=== PATIENT | male | born 1960 | race Caucasian/White ===

== ENCOUNTER 2016-02-29 01:01 | Inpatient (IN) | payer MEDICAID ==
[2016-02-29] VITALS (9 sets, daily range): BP systolic 171–195; BP diastolic 68–118; PULSE 101–160; RESP 18–22; TEMP 97.9; Ht 172.7 cm; Wt 65.0 kg
[~2016-02-29] VITALS: Ht 172.7 cm; Wt 65.0 kg
[2016-02-29] MEDS ORDERED: LORAZEPAM 2 MG INJ ONE (01:53)
[2016-02-29] MEDS ORDERED: LORAZEPAM 2 MG INJ IM ONE (02:00)
[2016-02-29] MEDS ORDERED: IBUPROFEN 800 MG TAB PO ONE (02:00)
[2016-02-29] MEDS ORDERED: OLANZAPINE (ODT) 5 MG TAB ODT ONE (04:00)
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
[2016-02-29] MEDS ORDERED: SOD CHLORIDE 0.9% 1,000 ML IV ONE (10:00)
--- NOTE | 2016-02-29 10:25 | RADRPT ---
PROCEDURE: XR Chest. CLINICAL INDICATION: Shortness of breath. TECHNIQUE: Single frontal view. COMPARISON: None. FINDINGS: The lungs are clear. The heart size is normal. There is no pleural effusion or pneumothorax. There is partial absence of the distal left clavicle. IMPRESSION: 1. Partial absence of the distal left clavicle. 2. Otherwise normal chest radiograph. RPTAT: QQ .Giovanni Tamayo MD, MD Date Time Electronically viewed and signed by .Giovanni Tamayo MD, MD on 02/29/2016 10:25 .R/
[2016-02-29] MEDS ORDERED: ENALAPRILAT 1.25 MG INJ IV ONE ×2 (10:30→12:00)
[2016-02-29] MEDS ORDERED: LORAZEPAM 2 MG INJ IV ONE (10:30)
[2016-02-29] MEDS: MAGNESIUM SULFATE 2 GM, MULTIVITAMINS 10 ML, THIAMINE 100 MG, FOLIC ACID 1 MG in SOD CH... IV STA ×2 (10:33→10:36)
[2016-02-29 10:39] LABS: ALBUMIN 3.7 g/dl (3.3-4.9); HEMATOCRIT 46.5 % (42.0-52.0); HEMOGLOBIN 16.1 g/dl (14.0-18.0); MEAN CORPUSCULAR HEMOGLOBIN 31.5 pg (29.0-33.0); MEAN CORPUSCULAR HGB CONC 34.7 g/dl (32.0-37.0); PLATELET COUNT 158 10^3/UL (140-440); RED BLOOD COUNT 5.11 10^6/ul (4.70-6.10); RED CELL DISTRIBUTION WIDTH 13.9 % (11.5-14.5); UNCORRECTED WBC 6.8 10^3/ul (4.8-10.8); WHITE BLOOD COUNT 6.8 10^3/ul (4.8-10.8)
[2016-02-29 10:40] LABS: POTASSIUM 3.6 mmol/L (3.5-5.1)
[2016-02-29 10:42] LABS: ALBUMIN/GLOBULIN RATIO 0.74; BILIRUBIN,INDIRECT 0.9 mg/dl (0-1.1); BILIRUBIN,TOTAL 0.9 mg/dl (0.2-1.3); CREATININE 0.71 mg/dl (0.61-1.24); TOTAL PROTEIN 8.7 g/dl (6.1-8.1)
[2016-02-29 10:43] LABS: CALCIUM 9.1 mg/dl (8.4-10.2); INR 0.99; PROTIME 13.1 Sec (12.2-14.2)
[2016-02-29 10:55] LABS: TROPONIN-I 0.015 ng/ml (0.00-0.12)
[2016-02-29 10:56] LABS: CONDITION 1; LH ANALYZER COMMENTS 1; SUSPECT 1
[2016-02-29 11:28] LABS: LYMPHOCYTES # 0.8 10^3/ul (0.8-2.9); MONOCYTE # 0.3 10^3/ul (0.3-0.9); NEUTROPHIL # 5.2 10^3/ul (1.6-7.5)
--- NOTE | 2016-02-29 11:59 | RADRPT ---
PROCEDURE: CT Brain without contrast. CLINICAL INDICATION: Weakness. Intracranial hemorrhage. TECHNIQUE: A CT of the brain was performed utilizing axial imaging from the skull base through the vertex without IV contrast. Multiplanar reformatted images were made. Images were reviewed on a [employer] workstation. The CTDIvol is 44 mGy and the DLP is 720 mGycm. COMPARISON: None FINDINGS: There is no discrete extra-axial fluid collection or mass. The ventricles are of normal size, conto ur and configuration. Scattered focal low density are seen in the periventricular white matter of b oth cerebral hemispheres. There is no associated mass effect. No intracranial hemorrhage is presen t. There is no skull fracture. There is normal aeration of the visualized paranasal sinuses. IMPRESSION: White matter disease compatible with chronic small vessel ischemia. No intracranial hemorrhage or m ass. .Srinivas Arevalo MD, Date Time Electronically viewed and signed by .Srinivas Arevalo MD, on 02/29/2016 11:58 .A/
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
[2016-02-29] MEDS ORDERED: NACL 0.9% 3 ML SYG IV SCH (13:00)
[2016-02-29] MEDS ORDERED: BISACODYL 10 MG SUPP PR PRN (13:00)
[2016-02-29] MEDS ORDERED: morphine 2 MG INJ IV PRN (13:00)
[2016-02-29] MEDS ORDERED: MAGNESIUM HYDROXIDE 30ML CUP PO PRN (13:00)
[2016-02-29] MEDS ORDERED: ONDANSETRON 4 MG INJ IV PRN (13:00)
[2016-02-29] MEDS ORDERED: LORAZEPAM 2 MG INJ IV PRN (13:00)
[2016-02-29] MEDS ORDERED: DOCUSATE SODIUM 100 MG CAP PO PRN (13:00)
[2016-02-29] MEDS ORDERED: HYDROCODONE/APAP (5/325) TAB PO PRN ×2 (13:00)
[2016-02-29] MEDS ORDERED: ACETAMINOPHEN 650 MG SUPP PR PRN (13:00)
[2016-02-29] MEDS ORDERED: ACETAMINOPHEN 325 MG TAB PO PRN (13:00)
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
[2016-02-29] MEDS: CHLORDIAZEPOXIDE 25 MG CAP PO SCH ×2 (14:00→21:00)
[2016-02-29] MEDS ORDERED: HALOPERIDOL 5 MG INJ IV PRN (14:00)
[2016-02-29] MEDS: hydrALAzine 20 MG INJ IV PRN ×2 (14:33→20:01)
[2016-02-29 14:55] LABS: BARBITURATES Negative (NEGATIVE); BENZODIAZEPINES Negative (NEGATIVE); CANNABINOIDS Negative (NEGATIVE); COCAINE Negative (NEGATIVE); OPIATES Negative (NEGATIVE)
[2016-02-29 15:15] LABS: HAAIG REFLEX REFLEX FILED
[2016-02-29 16:30] LABS: HEPATITIS B CORE ANTIBODY NEGATIVE (NEGATIVE)
[2016-02-29] MEDS: DIPHENHYDRAMINE 50 MG INJ IV PRN ×2 (17:32→23:26)
[2016-02-29] MEDS: LORAZEPAM 2 MG INJ IV PRN ×3 (17:33→23:26)
[2016-03-01] VITALS (16 sets, daily range): BP systolic 137–199; BP diastolic 84–114; PULSE 117–139; RESP 18–22
[2016-03-01] MEDS: PANTOPRAZOLE 40 MG INJ IV SCH (06:13)
[2016-03-01] MEDS: DIPHENHYDRAMINE 50 MG INJ IV PRN (06:57)
[2016-03-01] MEDS: hydrALAzine 20 MG INJ IV PRN (06:57)
[2016-03-01 08:00] LABS: ALBUMIN 3.5 g/dl (3.3-4.9)
[2016-03-01 08:01] LABS: POTASSIUM 3.3 mmol/L (3.5-5.1)
[2016-03-01 08:03] LABS: ALBUMIN/GLOBULIN RATIO 0.76; BILIRUBIN,DIRECT 0.6 mg/dl (0.00-0.20); BILIRUBIN,INDIRECT 0.8 mg/dl (0-1.1); BILIRUBIN,TOTAL 1.4 mg/dl (0.2-1.3); CREATININE 0.82 mg/dl (0.61-1.24); TOTAL PROTEIN 8.1 g/dl (6.1-8.1)
[2016-03-01 08:04] LABS: CALCIUM 9.1 mg/dl (8.4-10.2); MAGNESIUM 2.7 mg/dl (1.7-2.5); PHOSPHORUS 3.6 mg/dl (2.5-4.9)
[2016-03-01 08:05] LABS: CHOL/HDL RATIO 3.6 RATIO
[2016-03-01 08:18] LABS: T3 UPTAKE 28.8 % (23.5-40.5)
[2016-03-01 08:26] LABS: BASOPHILS % 0.2 % (0.0-2.0); HEMOGLOBIN 15.9 g/dl (14.0-18.0); LYMPHOCYTES # 0.8 10^3/ul (0.8-2.9); LYMPHOCYTES % 9.4 % (15.0-51.0); MEAN CORPUSCULAR HEMOGLOBIN 32.2 pg (29.0-33.0); MEAN CORPUSCULAR HGB CONC 35.3 g/dl (32.0-37.0); MEAN CORPUSCULAR VOLUME 91.2 fl (82.0-101.0); MEAN PLATELET VOLUME 8.6 fl (7.4-10.4); MONOCYTE # 0.6 10^3/ul (0.3-0.9); MONOCYTES % 7.4 % (0.0-11.0); NEUTROPHIL # 6.7 10^3/ul (1.6-7.5); PLATELET COUNT 153 10^3/UL (140-440); RED BLOOD COUNT 4.94 10^6/ul (4.70-6.10); RED CELL DISTRIBUTION WIDTH 13.5 % (11.5-14.5); UNCORRECTED WBC 8.1 10^3/ul (4.8-10.8); WHITE BLOOD COUNT 8.1 10^3/ul (4.8-10.8)
[2016-03-01 08:54] LABS: THYROID STIMULATING HORMONE 1.29 MIU/L (0.465-4.680)
[2016-03-01 08:59] LABS: CONDITION 1; LH ANALYZER COMMENTS 1; SUSPECT 1
[2016-03-01] MEDS: CHLORDIAZEPOXIDE 25 MG CAP PO SCH ×3 (09:00→21:00)
[2016-03-01] MEDS: MULTIVITAMINS 10 ML, THIAMINE 100 MG, FOLIC ACID 1 MG in SOD CHLORIDE 0.9% 1,000 ML IVPB SCH (09:00)
[2016-03-01] MEDS ORDERED: METOPROLOL 5 MG INJ IV PRN (09:30)
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
[2016-03-01] MEDS: LORAZEPAM 2 MG INJ IV SCH ×4 (09:50→21:32)
[2016-03-01] MEDS ORDERED: POTASSIUM CHLORIDE 250 ML IVPB ONE (10:00)
[2016-03-02] VITALS (19 sets, daily range): BP systolic 153–182; BP diastolic 77–95; PULSE 116–147; RESP 18–24
[2016-03-02] MEDS: PANTOPRAZOLE 40 MG INJ IV SCH (06:11)
[2016-03-02] MEDS: CHLORDIAZEPOXIDE 25 MG CAP PO SCH ×3 (08:16→21:00)
[2016-03-02] MEDS: MULTIVITAMINS 10 ML, THIAMINE 100 MG, FOLIC ACID 1 MG in SOD CHLORIDE 0.9% 1,000 ML IVPB SCH (08:18)
[2016-03-02] MEDS: LORAZEPAM 2 MG INJ IV SCH ×3 (08:18→21:22)
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
[2016-03-02] MEDS: D5W-0.45 NACL + KCL 20 MEQ 1,000 ML IV SCH (13:07)
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
[2016-03-02 14:44] LABS: HEMATOCRIT 46.7 % (42.0-52.0); HEMOGLOBIN 15.8 g/dl (14.0-18.0); MEAN CORPUSCULAR HEMOGLOBIN 31.3 pg (29.0-33.0); MEAN CORPUSCULAR HGB CONC 33.9 g/dl (32.0-37.0); MEAN CORPUSCULAR VOLUME 92.2 fl (82.0-101.0); MEAN PLATELET VOLUME 8.4 fl (7.4-10.4); PLATELET COUNT 147 10^3/UL (140-440); RED BLOOD COUNT 5.07 10^6/ul (4.70-6.10); RED CELL DISTRIBUTION WIDTH 13.9 % (11.5-14.5); UNCORRECTED WBC 12.9 10^3/ul (4.8-10.8); WHITE BLOOD COUNT 12.9 10^3/ul (4.8-10.8)
[2016-03-02 14:55] LABS: CONDITION 1; LH ANALYZER COMMENTS 1; SUSPECT 1
[2016-03-02] MEDS: hydrALAzine 20 MG INJ IV PRN ×2 (14:58→18:47)
[2016-03-02 15:00] LABS: POTASSIUM 3.8 mmol/L (3.5-5.1)
[2016-03-02 15:03] LABS: CALCIUM 9.8 mg/dl (8.4-10.2); CREATININE 1.38 mg/dl (0.61-1.24)
[2016-03-02 15:49] LABS: LYMPHOCYTES # 1.4 10^3/ul (0.8-2.9); MONOCYTE # 1.3 10^3/ul (0.3-0.9); NEUTROPHIL # 9.4 10^3/ul (1.6-7.5)
--- NOTE | 2016-03-02 20:59 | CONS ---
Date/Time of Note Date/Time of Note DATE: 03/02/16 TIME: 20:57 Copies To: Additional comments: full consult dictated [id number]. Thank you. JERZY EDEN MD Mar 02, 2016 20:59
[2016-03-02] MEDS: NEOMYC/POLYMYX/BACIT 30 GM OINT TOP SCH (21:22)
[2016-03-03] VITALS (16 sets, daily range): BP systolic 138–166; BP diastolic 63–91; PULSE 113–134; RESP 20–36
[2016-03-03] MEDS: D5W-0.45 NACL + KCL 20 MEQ 1,000 ML IV SCH (00:20)
[2016-03-03] MEDS: LORAZEPAM 2 MG INJ IV SCH ×6 (01:00→21:00)
[2016-03-03] MEDS: hydrALAzine 20 MG INJ IV PRN (01:31)
[2016-03-03] MEDS: PANTOPRAZOLE 40 MG INJ IV SCH (05:35)
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
[2016-03-03] MEDS: NEOMYC/POLYMYX/BACIT 30 GM OINT TOP SCH ×2 (08:05→21:11)
[2016-03-03] MEDS: CHLORDIAZEPOXIDE 25 MG CAP PO SCH ×3 (08:06→21:00)
[2016-03-03] MEDS: MULTIVITAMINS 10 ML, THIAMINE 100 MG, FOLIC ACID 1 MG in SOD CHLORIDE 0.9% 1,000 ML IVPB SCH (08:06)
[2016-03-03 10:40] LABS: BASOPHILS % 0.1 % (0.0-2.0); EOSINOPHILS % 0.1 % (0.0-7.0); HEMATOCRIT 44.7 % (42.0-52.0); HEMOGLOBIN 15.3 g/dl (14.0-18.0); LYMPHOCYTES % 10.4 % (15.0-51.0); MEAN CORPUSCULAR HEMOGLOBIN 31.9 pg (29.0-33.0); MEAN CORPUSCULAR HGB CONC 34.2 g/dl (32.0-37.0); MEAN CORPUSCULAR VOLUME 93.2 fl (82.0-101.0); MEAN PLATELET VOLUME 9.5 fl (7.4-10.4); MONOCYTE # 0.3 10^3/ul (0.3-0.9); MONOCYTES % 3.3 % (0.0-11.0); NEUTROPHIL # 8.1 10^3/ul (1.6-7.5); NEUTROPHILS % 86.1 % (39.0-77.0); PLATELET COUNT 119 10^3/UL (140-440); RED CELL DISTRIBUTION WIDTH 14.1 % (11.5-14.5); UNCORRECTED WBC 9.4 10^3/ul (4.8-10.8); WHITE BLOOD COUNT 9.4 10^3/ul (4.8-10.8)
[2016-03-03 10:45] LABS: POTASSIUM 4.5 mmol/L (3.5-5.1)
[2016-03-03 10:48] LABS: CREATININE 0.94 mg/dl (0.61-1.24)
[2016-03-03 10:49] LABS: CALCIUM 9.6 mg/dl (8.4-10.2)
[2016-03-03 11:05] LABS: CONDITION 1; LH ANALYZER COMMENTS 1; SUSPECT 1
--- NOTE | 2016-03-03 12:57 | RADRPT ---
PROCEDURE: CT Brain without contrast. CLINICAL INDICATION: Left-sided weakness, encephalopathy, and altered mental status. TECHNIQUE: A CT of the brain without contrast was performed utilizing axial sections from the skul l base through the vertex. The patient was scanned without intravenous contrast enhancement. [place] l and coronal reformatted images were obtained using the data from the axial images. Total exam DLP is 630.20 mGy-cm. CTDIvol is 44.99 mGy. One or more of the following dose reduction techniques we re used: Automated exposure control, adjustment of the mA and/or kV according to patient size, use o f iterative reconstruction technique. COMPARISON: 02/29/2016 FINDINGS: There is normal bradley-white matter differentiation. There are small regions of decreased attenuation in the bilateral periventricular white matter, unch anged. The ventricles and cisterns are normal. There is no midline shift. There is no extra-axial fluid c ollection. There is no intracranial hemorrhage or space-occupying lesion. There is no skull fracture or lytic lesion. IMPRESSION: 1. Small regions of decreased attenuation in the bilateral periventricular white matter. This may be due to microangiopathic ischemic change or demyelination. Correlation with MRI is advised. 2. No intracranial hemorrhage or mass. RPTAT: QQ .Giovanni Tamayo MD, MD Date Time Electronically viewed and signed by .Giovanni Tamayo MD, on 03/03/2016 12:57 .R/
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
[2016-03-03] MEDS: DEXTROSE 5% 1,000 ML IV SCH ×2 (14:15→21:19)
--- NOTE | 2016-03-03 16:37 | PN ---
DATE: 03/03/2016 INFECTIOUS DISEASE PROGRESS NOTE SUBJECTIVE: No acute events overnight. The patient is lethargic, looks comfortable, afebrile. WBC 9.4, neutrophils 86.1, BUN 35, creatinine 0.94. DIAGNOSTICS: Chest x-ray on admission revealed partial absence of the distal left clavicle. ANTIMICROBIALS: Patient is off antibiotics. PHYSICAL EXAMINATION: GENERAL: This is a chronically ill-appearing, 55-year-old man who is obtunded, in no distress. HEENT: Head atraumatic, normocephalic. Sclerae anicteric. Buccal mucosa dry. The patient has mul tiple facial excoriations. NECK: Supple, trachea midline. CHEST: Rise symmetrical. Breath sounds diminished to bases. HEART: S1, S2. ABDOMEN: Soft, bowel tones present. EXTREMITIES: No cyanosis. ASSESSMENT: 1. Acute encephalopathy, neurology follows. 2. Human immunodeficiency virus, pending CD4 count. 3. Hepatitis C virus. 4. History of ethanol. 5. Electrolyte imbalance. 6. Transaminitis with elevated total bilirubin. PLAN: The patient remains clinically unchanged. No fevers. Again, CD4 count is pending. He is noah ng seen by neurology. We are going to order blood, urine cultures. We are going to await for CD4 c ount and patient's viral load. Check his liver ultrasound. Await for MRI as per neurology recommenda tions. Dictated By: CLAIR MUNGUIA [employer]RECTIONAL THERAPY TEACHER for YAZMIN MERCER MD NI/NTS Conf#: [id number] DID#: [id number]
--- NOTE | 2016-03-03 17:13 | RADRPT ---
PROCEDURE: XR Chest. CLINICAL INDICATION: Shortness of breath. TECHNIQUE: Single frontal view. COMPARISON: 02/29/2016. FINDINGS: There is air space disease in the right mid lung zone consistent with atelectasis or pneumonia. The lungs are otherwise clear. The heart size is normal. There is no pleural effusion. There is no pneumothorax. IMPRESSION: 1. Air space disease in the right mid lung zone consistent with atelectasis or pneumonia. Fluid in the fissure at this site cannot be excluded. 2. Otherwise unremarkable chest radiograph. RPTAT: QQ .Giovanni Tamayo MD, MD Date Time Electronically viewed and signed by .Giovanni Tamayo MD, MD on 03/03/2016 17:13 .R/
[2016-03-03] MEDS ORDERED: DEXTROSE 5% WATER 500 ML BAG IV ONE (20:30)
[2016-03-03 20:47] LABS: AADO2 Arterial 92.6 mmHg (7.0-24.0); Allen Test ACCEPTAB; Arterial Base Excess -1.8 mmol/L (-3.0-3); Arterial COHb 0.3 % (0.0-3.0); Arterial Fraction of Oxyhgb 94.7 % (93.0-99.0); Arterial HCO3 21.9 mmol/L (22.0-26.0); Arterial MetHb 0.3 % (0.0-1.5); Arterial Total Hemglobin 15.1 g/dl (12.0-18.0); MODE NASAL CANNULA
[2016-03-04] VITALS (50 sets, daily range): BP systolic 58–307; BP diastolic 42–181; PULSE 0–167; RESP 14–21
[2016-03-04] MEDS: LORAZEPAM 2 MG INJ IV SCH ×6 (01:00→21:00)
[2016-03-04] MEDS: PANTOPRAZOLE 40 MG INJ IV SCH (06:42)
[2016-03-04] MEDS: CHLORDIAZEPOXIDE 25 MG CAP PO SCH ×3 (09:00→21:00)
[2016-03-04] MEDS: DEXTROSE 5% 1,000 ML IV SCH ×2 (09:15→17:24)
[2016-03-04] MEDS: NEOMYC/POLYMYX/BACIT 30 GM OINT TOP SCH ×2 (09:15→21:00)
[2016-03-04 10:07] LABS: HEMATOCRIT 40.3 % (42.0-52.0); HEMOGLOBIN 13.7 g/dl (14.0-18.0); MEAN CORPUSCULAR HGB CONC 34.1 g/dl (32.0-37.0); MEAN CORPUSCULAR VOLUME 93.7 fl (82.0-101.0); PLATELET COUNT 97 10^3/UL (140-440); RED CELL DISTRIBUTION WIDTH 14.4 % (11.5-14.5); UNCORRECTED WBC 7.9 10^3/ul (4.8-10.8); WHITE BLOOD COUNT 7.9 10^3/ul (4.8-10.8)
[2016-03-04 10:10] LABS: CREATININE 1.11 mg/dl (0.61-1.24)
[2016-03-04 10:11] LABS: CONDITION 1; LH ANALYZER COMMENTS 1; SUSPECT 1
[2016-03-04 10:15] LABS: CALCIUM 9.5 mg/dl (8.4-10.2)
[2016-03-04 10:48] LABS: POTASSIUM 4.2 mmol/L (3.5-5.1)
[2016-03-04 10:56] LABS: LYMPHOCYTES # 0.9 10^3/ul (0.8-2.9); NEUTROPHIL # 4.7 10^3/ul (1.6-7.5)
[2016-03-04] MEDS: LEVOFLOXACIN 500MG/D5W (PMX) 100 ML IVPB SCH (13:04)
[2016-03-04] MEDS: PIPER-TAZO 3.375 GM IV (PMX) 100 ML IVPB SCH ×2 (14:00→22:21)
--- NOTE | 2016-03-04 14:38 | CONS ---
Date/Time of Note Date/Time of Note DATE: 03/04/16 TIME: 14:34 Assessment/Plan Assessment/Plan Chief Complaint/Hosp Course SUBJECTIVE: No acute events overnight. The patient is obtunded, afebrile. ANTIMICROBIALS: Levaquin, Zosyn PHYSICAL EXAMINATION: GENERAL: This is a chronically ill-appearing, 55-year-old man who is obtunded, in no distress. HEENT: Head atraumatic, normocephalic. Sclerae anicteric. Buccal mucosa dry. The patient has multiple facial excoriations. NECK: Supple, trachea midline. CHEST: Rise symmetrical. Breath sounds diminished to bases. HEART: S1, S2. ABDOMEN: Soft, bowel tones present. EXTREMITIES: No cyanosis. ASSESSMENT: 1. Acute encephalopathy==? toxic metabolic ?infection==> neuro on case, pending MRI. 2. Human immunodeficiency virus, pending CD4 count. 3. Hepatitis C virus. 4. Possible PNA ?aspiration 5. History of ethanol abuse. 6. Electrolyte imbalance. 7. Transaminitis with elevated total bilirubin. 8. Incomplete data PLAN: The patient remains unchanged. Started on abx for concern of PNA, will add Vanco, consider LP, await for final cx's and CD4 count, aspiration precautions DW staff Problems: Consultation Date/Type/Reason Admit Date/Time Feb 29, 2016 at 12:20 Initial Consult Date Type of Consultation: id Exam/Review of Systems Vital Signs Vitals Vital Signs Date Time Temp Pulse Resp B/P Pulse Ox O2 Delivery O2 Flow Rate FiO2 03/04/16 12:07 136 03/04/16 12:00 98.9 21 121/71 99 03/04/16 08:43 Nasal Cannula 2.0 Intake and Output 03/03/16 03/03/16 03/04/16 15:00 23:00 07:00 Intake Total 0 ml 1200 ml Output Total 700 ml 700 ml Balance -700 ml 500 ml Results Result Diagram: 03/04/16 0910 03/04/16 0910 Results 24 hrs Laboratory Tests Test 03/03/16 20:26 03/04/16 09:10 Arterial Blood HCO3 21.9 L Arterial Blood Base Excess -1.8 Arterial Blood Oxygen Saturation 95.3 Chavo Test ACCEPTAB Arterial Blood Gas Puncture Site Left Radial Arterial Blood Carboxyhemoglobin 0.3 Arterial Blood Date Drawn 03/03/2016 8:40:39 PM Arterial Blood Methemoglobin 0.3 Arterial Blood pCO2 (Temp correct) 34.5 L Arterial Blood pH (Temp corrected) 7.420 Arterial Blood pO2 (Temp corrected) 80.8 Blood Gas A-a O2 Differential 92.6 H Blood Gas Modality NASAL CANNULA Blood Gas Notified Time 03/03/2016 8:47:08 PM Blood Gas Notified Whom MA Blood Gas Specimen Source Blood arterial Blood Gas Temperature 37.0 FiO2 30.0 Oxyhemoglobin Percent 94.7 Total Hemoglobin 15.1 Anion Gap 13 Band Neutrophils % 15.0 H Basophils # Basophils % Blood Morphology Comment Blood Urea Nitrogen 32 H Calcium Level 9.5 Carbon Dioxide Level 27 Chloride Level 125 H Creatinine 1.11 Differential Comment MANUAL DIFF Eosinophils # Eosinophils % Glucose Level 120 Hematocrit 40.3 L Hemoglobin 13.7 L Lymphocytes # 0.9 Lymphocytes % 12.0 L Mean Corpuscular Hemoglobin 32.0 Mean Corpuscular Hemoglobin Concent 34.1 Mean Corpuscular Volume 93.7 Mean Platelet Volume 9.0 Monocytes # 1.0 H Monocytes % 13.0 H Neutrophils # 4.7 Neutrophils % 60.0 Nucleated Red Blood Cells # Nucleated Red Blood Cells % Platelet Count 97 L Potassium Level 4.2 Red Blood Count 4.30 L Red Cell Distribution Width 14.4 Sodium Level 161 *H White Blood Count 7.9 Medications Medications Current Medications Ondansetron HCl (Zofran Inj) 4 mg Q6H PRN IV NAUSEA AND/OR VOMITING; Start at 13:00 Acetaminophen (Tylenol Tab) 650 mg Q6H PRN PO PAIN LEVEL 1-3 OR FEVER; Start at 13:00 Acetaminophen (Tylenol Supp) 650 mg Q6H PRN [place] PAIN LEVEL 1-3 OR FEVER; Start 02/29/16 at 13:00 Acetaminophen/ Hydrocodone Bitart ([place] (5/325)) 1 tab Q6H PRN PO MODERATE PAIN LEVEL 4-6; Start 02/29/16 at 13:00 Acetaminophen/ Hydrocodone Bitart ([place] (5/325)) 2 tab Q6H PRN PO SEVERE PAIN LEVEL 7-10; Start 02/29/16 at 13:00 Morphine Sulfate (morphine) 2 mg Q4H PRN IV SEVERE PAIN LEVEL 7-10 Last administered on 03/01/16t 06:13; Admin Dose 2 MG; Start 02/29/16 at 13:00 Docusate Sodium (Colace) 100 mg Q12H PRN PO CONSTIPATION; Start 02/29/16 at 13: 00 Magnesium Hydroxide (Milk Of Mag) 30 ml DAILY PRN PO CONSTIPATION; Start at 13:00 Bisacodyl (Dulcolax Supp) 10 mg DAILY PRN [place] CONSTIPATION; Start 02/29/16 at 13 :00 Pantoprazole (Protonix Iv) 40 mg DAILY@06 IV Last administered on 03/04/16 06: 42; Admin Dose 40 MG; Start 03/01/16 at 06:00 Chlordiazepoxide (Librium) 25 mg TID PO ; Start 02/29/16 at 14:00 Hydralazine HCl (Apresoline) 10 mg Q4H PRN IV sbp>160 Last administered on 03/03 01:31; Admin Dose 10 MG; Start 02/29/16 at 14:00 Lorazepam (Ativan) 1 mg Q1HWA PRN IV CONTROL WITHDRAWAL SYMPTOMS Last administered on 02/29/16 23:26; Admin Dose 1 MG; Start 02/29/16 at 18:00 Diphenhydramine HCl (Benadryl) 25 mg Q6H PRN IV ALLERGIC REACTION Last administered on 03/01/16 06:57; Admin Dose 25 MG; Start 02/29/16 at 17:00 Metoprolol Tartrate (Lopressor) 5 mg Q6H PRN IV SBP>160 Last administered on 16:41; Admin Dose 5 MG; Start 03/01/16 at 09:30 Neomycin/ Polymyxin/ Bacitracin (Neosporin Topical Oint) 1 applic BID TOP Last administered on 03/04/16 09:15; Admin Dose 1 APPLIC; Start 03/02/16 at 21:00 Lorazepam 1 mg 1 mg Q4H IV Last administered on 03/03/16 16:03; Admin Dose 1 MG; Start 03/02/16 at 21:00 Dextrose 1,000 ml @ 100 mls/hr Q10H IV Last administered on 03/04/16 09:15; Admin Dose 100 MLS/HR; Start 03/03/16 at 13:00 Piperacillin Sod/ Tazobactam Sod 100 ml @ 200 mls/hr Q8 IVPB ; Start 03/04/16 at 14:00 Levofloxacin/ Dextrose (Levaquin 500mg/ D5W 100 ml (Pmx)) 100 ml @ 100 mls/hr Q24H IVPB Last administered on 03/04/16t 13:04; Admin Dose 100 MLS/HR; Start at 12:00 CLAIR MUNGUIA NP Mar 04, 2016 14:38
[2016-03-04] MEDS ORDERED: VANCOMYCIN IV PER PHARMACY XX SCH (15:00)
[2016-03-04] MEDS ORDERED: VANCOMYCIN 1 GM in NS 250 ML IVPB SCH (15:00)
[2016-03-04] MEDS ORDERED: NORepinephrine 8MG/250 ML (PMX 250 ML ONE (15:08)
[2016-03-04] MEDS ORDERED: PHENYLephrine 20MG IN 250 ML 0 ML ONE (15:25)
--- NOTE | 2016-03-04 15:40 | SP ---
DATE OF PROCEDURE: 03/03/2016 INDICATION: A 55-year-old gentleman with encephalopathy, history of alcohol abuse. DESCRIPTION OF PROCEDURE: Routine EEG was recorded digitally. [id number]-[id number] and iodro-kd-rxh liz ages were recorded and reviewed. All impedances were measured and recorded. Cap electrodes were pl aced in accordance with International 10-20 system of electrode placement. FINDINGS: Symmetrically distributed background activity of low amplitude ranging in frequency betwe en 9 to 11 cycles per second, at times intermixing with even smaller amplitude and higher frequency beta range activity was seen essentially throughout the recording. This activity also intermixes in termittently with slower waves 2 to 4 cycles per second. No definite response to photic stimulation . No epileptiform transients were seen. No signs of ongoing electrographic seizures. No lateraliz ed slowing observed. IMPRESSION: Abnormal study secondary to background slowing, which could reflect presence of encepha lopathy. Please correlate clinically. Dictated By: JERZY NERI/CHRISTIAN Conf#: [id number] DID#: [id number]
--- NOTE | 2016-03-04 15:41 | RADRPT ---
PROCEDURE: US Abdomen (right upper quadrant). CLINICAL INDICATION: Elevated liver enzymes. TECHNIQUE: Multiple real-time longitudinal and transverse images of the right upper quadrant of th e abdomen were acquired utilizing a curved array transducer. Images were reviewed on a high-resoluti on PACS workstation. COMPARISON: None FINDINGS: This is a limited study due to patient becoming unstable during the scan. Limited images of the liver are grossly normal. The pancreas is partially seen and appears unremarkable. The gallbladder, right kidney, and bile ducts were not evaluated. There is no free fluid. IMPRESSION: 1. Limited study as described above. RPTAT: QQ .Giovanni Tamayo MD, MD Date Time Electronically viewed and signed by .Giovanni Tamayo MD, on 03/04/2016 15:41 .R/
--- NOTE | 2016-03-04 15:42 | CONS ---
Date/Time of Note Date/Time of Note DATE: 03/04/16 TIME: 15:34 Assessment/Plan Assessment/Plan Additional Assessment/Plan Assessment and recommendations; 1. Patient admitted with severe hypernatremia hyperchloremia and volume depletion ,was being hydrated on the medical floor as well as was being treated for alcohol withdrawal when the patient decompensated, a CODE BLUE was called in and prolonged CPR was done lasting more than 20 minutes with several rounds of epinephrine been given patient currently hypotensive on maximum doses of Levophed. Next 2. Chest x-ray was reviewed from yesterday which is essentially clear. However at this time it is difficult to rule out superimposed pneumonia. Patient currently on broad-spectrum antibiotic coverage. Next 3. HIV positive viral load status is not available. 4. At this point difficult to rule out underlying meningitis. 5. At this point difficult to rule out anoxic enthesopathy because of prolonged CPR. Continue current mechanical ventilation setting patient is a assist-control of 20 tidal volume 500 PEEP of 500% FiO2. Continue broad-spectrum antibiotic coverage. Put an NG tube and start free water via NG tube 300 mL every 6 hours for correction of hyponatremia. A lumbar puncture is pending. From an ABG. Once the ABG results are obtained I will reviewed make further recommendations regarding ventilator settings. Right femoral triple-lumen central venous catheter was put in without difficulty because of hypotension high-dose pressor support. Also an 18 g 6 inch right femoral arterial catheter was placed without difficulty. Gnosis very guarded. Consultation Date/Type/Reason Admit Date/Time Feb 29, 2016 at 12:20 Date of Consultation: Mar 04, 2016 Type of Consultation: pulmoinary/ critical care Reason for Consultation Patient admitted with altered mental status possibly some element of alcohol withdrawal was being treated on the medical floor and the patient decompensated a CODE BLUE was called in and prolonged CPR was done lasting 20 minutes patient was intubated by the ER physician offered to ICU. History was obtained from medical records. Past Medical History Past medical history; patient HIV-positive status is unknown regarding CD4 CD8 counts also outpatient treatment status is unclear at this point. Medications; reviewed. Social history; positive for alcohol abuse. Family history; currently not available. Occupational history: currently not available. Review of systems; currently not obtainable. Social History Alcohol Use: heavy Smoking Status: Current every day smoker Drug Use: other (unknown) Exam/Review of Systems Vital Signs Vitals Vital Signs Date Time Temp Pulse Resp B/P Pulse Ox O2 Delivery O2 Flow Rate FiO2 03/04/16 15:04 167 03/04/16 12:00 98.9 21 121/71 99 03/04/16 08:43 Nasal Cannula 2.0 Intake and Output 03/03/16 03/03/16 03/04/16 15:00 23:00 07:00 Intake Total 0 ml 1200 ml Output Total 700 ml 700 ml Balance -700 ml 500 ml Exam General exam; young emaciated male orally intubated currently completely unresponsive. HEENT examination: Supple neck, or intubated, pupils are dilated and nonreactive to light. Lymph adenopathy. No thyromegaly. Dentition is fair. Patient does have left periorbital contusions. Next Chest examination; clear to auscultation. S1-S2 audible no murmurs tachycardic regular rhythm. Next Abdomen examination; soft scaphoid no organomegaly bowel sounds are absent. There is no scrotal or penile edema. Next Extremity examination; no peripheral edema. Pulses 1+ bilaterally. No clubbing. TRADE SHOW MANAGER examination; patient currently unresponsive . Results Result Diagram: 03/04/16 0910 03/04/16 0910 Results 24 hrs Laboratory Tests Test 03/03/16 20:26 03/04/16 09:10 03/04/16 14:20 Arterial Blood HCO3 21.9 L Arterial Blood Base Excess -1.8 Arterial Blood Oxygen Saturation 95.3 Chavo Test ACCEPTAB Arterial Blood Gas Puncture Site Left Radial Arterial Blood Carboxyhemoglobin 0.3 Arterial Blood Date Drawn 03/03/2016 8:40:39 PM Arterial Blood Methemoglobin 0.3 Arterial Blood pCO2 (Temp correct) 34.5 L Arterial Blood pH (Temp corrected) 7.420 Arterial Blood pO2 (Temp corrected) 80.8 Blood Gas A-a O2 Differential 92.6 H Blood Gas Modality NASAL CANNULA Blood Gas Notified Time 03/03/2016 8:47:08 PM Blood Gas Notified Whom [place] Blood Gas Specimen Source Blood arterial Blood Gas Temperature 37.0 FiO2 30.0 Oxyhemoglobin Percent 94.7 Total Hemoglobin 15.1 Anion Gap 13 Band Neutrophils % 15.0 H Basophils # Basophils % Blood Morphology Comment Blood Urea Nitrogen 32 H Calcium Level 9.5 Carbon Dioxide Level 27 Chloride Level 125 H Creatinine 1.11 Differential Comment MANUAL DIFF Eosinophils # Eosinophils % Glucose Level 120 Hematocrit 40.3 L Hemoglobin 13.7 L Lymphocytes # 0.9 Lymphocytes % 12.0 L Mean Corpuscular Hemoglobin 32.0 Mean Corpuscular Hemoglobin Concent 34.1 Mean Corpuscular Volume 93.7 Mean Platelet Volume 9.0 Monocytes # 1.0 H Monocytes % 13.0 H Neutrophils # 4.7 Neutrophils % 60.0 Nucleated Red Blood Cells # Nucleated Red Blood Cells % Platelet Count 97 L Potassium Level 4.2 Red Blood Count 4.30 L Red Cell Distribution Width 14.4 Sodium Level 161 *H White Blood Count 7.9 Bedside Glucose 121 Medications Medications Current Medications Ondansetron HCl (Zofran Inj) 4 mg Q6H PRN IV NAUSEA AND/OR VOMITING; Start at 13:00 Acetaminophen (Tylenol Tab) 650 mg Q6H PRN PO PAIN LEVEL 1-3 OR FEVER; Start at 13:00 Acetaminophen (Tylenol Supp) 650 mg Q6H PRN [place] PAIN LEVEL 1-3 OR FEVER; Start 02/29/16 at 13:00 Acetaminophen/ Hydrocodone Bitart ([place] (5/325)) 1 tab Q6H PRN PO MODERATE PAIN LEVEL 4-6; Start 02/29/16 at 13:00 Acetaminophen/ Hydrocodone Bitart ([place] (5/325)) 2 tab Q6H PRN PO SEVERE PAIN LEVEL 7-10; Start 02/29/16 at 13:00 Morphine Sulfate (morphine) 2 mg Q4H PRN IV SEVERE PAIN LEVEL 7-10 Last administered on 03/01/16 06:13; Admin Dose 2 MG; Start 02/29/16 at 13:00 Docusate Sodium (Colace) 100 mg Q12H PRN PO CONSTIPATION; Start 02/29/16 at 13: 00 Magnesium Hydroxide (Milk Of Mag) 30 ml DAILY PRN PO CONSTIPATION; Start at 13:00 Bisacodyl (Dulcolax Supp) 10 mg DAILY PRN [place] CONSTIPATION; Start 02/29/16 at 13 :00 Pantoprazole (Protonix Iv) 40 mg DAILY@06 IV Last administered on 03/04/16 06: 42; Admin Dose 40 MG; Start 03/01/16 at 06:00 Chlordiazepoxide (Librium) 25 mg TID PO ; Start 02/29/16 at 14:00 Hydralazine HCl (Apresoline) 10 mg Q4H PRN IV sbp>160 Last administered on 03/03 01:31; Admin Dose 10 MG; Start 02/29/16 at 14:00 Lorazepam (Ativan) 1 mg Q1HWA PRN IV CONTROL WITHDRAWAL SYMPTOMS Last administered on 02/29/16 23:26; Admin Dose 1 MG; Start 02/29/16 at 18:00 Diphenhydramine HCl (Benadryl) 25 mg Q6H PRN IV ALLERGIC REACTION Last administered on 03/01/16 06:57; Admin Dose 25 MG; Start 02/29/16 at 17:00 Metoprolol Tartrate (Lopressor) 5 mg Q6H PRN IV SBP>160 Last administered on 16:41; Admin Dose 5 MG; Start 03/01/16 at 09:30 Neomycin/ Polymyxin/ Bacitracin (Neosporin Topical Oint) 1 applic BID TOP Last administered on 03/04/16 09:15; Admin Dose 1 APPLIC; Start 03/02/16 at 21:00 Lorazepam 1 mg 1 mg Q4H IV Last administered on 03/03/16 16:03; Admin Dose 1 MG; Start 03/02/16 at 21:00 Dextrose 1,000 ml @ 100 mls/hr Q10H IV Last administered on 03/04/16 09:15; Admin Dose 100 MLS/HR; Start 03/03/16 at 13:00 Piperacillin Sod/ Tazobactam Sod 100 ml @ 200 mls/hr Q8 IVPB ; Start 03/04/16 at 14:00 Levofloxacin/ Dextrose 100 ml @ 100 mls/hr Q24H IVPB Last administered on 03/04 13:04; Admin Dose 100 MLS/HR; Start 03/04/16 at 12:00 Vancomycin HCl (Vancocin) 250 ml @ 125 mls/hr Q12H IVPB ; Start 03/04/16 at 15: 00 KEANU CHE Mar 04, 2016 15:42
[2016-03-04] MEDS ORDERED: PHENYLephrine 20MG IN 250 ML 250 ML IV SCH ×2 (16:00→22:00)
--- NOTE | 2016-03-04 16:07 | PN ---
Date/Time of Note Date/Time of Note DATE: 03/04/16 TIME: 15:55 Assessment/Plan VTE Prophylaxis VTE Prophylaxis Intervention: SCD's Assessment/Plan Chief Complaint/Hosp Course 1. Cardiac Arrest with ROSC -Etiology unclear, Cards consult with Dr Morrissey -Intubated and transferred to the ICU 2. Encephalopathy likely secondary to alcohol withdrawal vs HIV Encephalopathy Continue on Ativan for alcohol withdrawal.. cont iv hydration positive HIV serology. neurologist following EEG-Abnormal study secondary to background slowing, which could reflect presence of encephalopathy. 3. Hypertensive urgency-now Hypotensive 4. 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 -Advise about cessation once patient more alert 5. Transaminitis. Patient with alcohol abuse as well as hepatitis 6. Hepatitis C.HCV RNA level high. cont with ID recs. 7. Hypokalemia. Will monitor and replete as needed 8. HIV (+) serology. cont abx/antiretrovirals per ID 9. Hypernatremia-improving -cont D5W DVT prophylaxis: SCDs Problems: Subjective 24 Hr Interval Summary Subjective hx not possible: pt non-verbal Exam/Review of Systems Vital Signs Vitals Vital Signs Date Time Temp Pulse Resp B/P Pulse Ox O2 Delivery O2 Flow Rate FiO2 03/04/16 15:04 167 03/04/16 12:00 98.9 21 121/71 99 03/04/16 08:43 Nasal Cannula 2.0 Intake and Output 03/03/16 03/03/16 03/04/16 15:00 23:00 07:00 Intake Total 0 ml 1200 ml Output Total 700 ml 700 ml Balance -700 ml 500 ml Exam Constitutional: non-verbal ENMT: intubated Respiratory: clear to auscultation Cardiovascular: regular rate and rhythm Gastrointestinal: soft, No distended Musculoskeletal: nl extremities to inspection Results Result Diagram: 03/04/16 0910 03/04/16 0910 Results 24 hrs Laboratory Tests Test 03/03/16 20:26 03/04/16 09:10 03/04/16 14:20 Arterial Blood HCO3 21.9 L Arterial Blood Base Excess -1.8 Arterial Blood Oxygen Saturation 95.3 Chavo Test ACCEPTAB Arterial Blood Gas Puncture Site Left Radial Arterial Blood Carboxyhemoglobin 0.3 Arterial Blood Date Drawn 03/03/2016 8:40:39 PM Arterial Blood Methemoglobin 0.3 Arterial Blood pCO2 (Temp correct) 34.5 L Arterial Blood pH (Temp corrected) 7.420 Arterial Blood pO2 (Temp corrected) 80.8 Blood Gas A-a O2 Differential 92.6 H Blood Gas Modality NASAL CANNULA Blood Gas Notified Time 03/03/2016 8:47:08 PM Blood Gas Notified Whom [place] Blood Gas Specimen Source Blood arterial Blood Gas Temperature 37.0 FiO2 30.0 Oxyhemoglobin Percent 94.7 Total Hemoglobin 15.1 Anion Gap 13 Band Neutrophils % 15.0 H Basophils # Basophils % Blood Morphology Comment Blood Urea Nitrogen 32 H Calcium Level 9.5 Carbon Dioxide Level 27 Chloride Level 125 H Creatinine 1.11 Differential Comment MANUAL DIFF Eosinophils # Eosinophils % Glucose Level 120 Hematocrit 40.3 L Hemoglobin 13.7 L Lymphocytes # 0.9 Lymphocytes % 12.0 L Mean Corpuscular Hemoglobin 32.0 Mean Corpuscular Hemoglobin Concent 34.1 Mean Corpuscular Volume 93.7 Mean Platelet Volume 9.0 Monocytes # 1.0 H Monocytes % 13.0 H Neutrophils # 4.7 Neutrophils % 60.0 Nucleated Red Blood Cells # Nucleated Red Blood Cells % Platelet Count 97 L Potassium Level 4.2 Red Blood Count 4.30 L Red Cell Distribution Width 14.4 Sodium Level 161 *H White Blood Count 7.9 Bedside Glucose 121 Medications Medications Current Medications Ondansetron HCl (Zofran Inj) 4 mg Q6H PRN IV NAUSEA AND/OR VOMITING; Start at 13:00 Acetaminophen (Tylenol Tab) 650 mg Q6H PRN PO PAIN LEVEL 1-3 OR FEVER; Start at 13:00 Acetaminophen (Tylenol Supp) 650 mg Q6H PRN [place] PAIN LEVEL 1-3 OR FEVER; Start 02/29/16 at 13:00 Acetaminophen/ Hydrocodone Bitart ([place] (5/325)) 1 tab Q6H PRN PO MODERATE PAIN LEVEL 4-6; Start 02/29/16 at 13:00 Acetaminophen/ Hydrocodone Bitart ([place] (5/325)) 2 tab Q6H PRN PO SEVERE PAIN LEVEL 7-10; Start 02/29/16 at 13:00 Morphine Sulfate (morphine) 2 mg Q4H PRN IV SEVERE PAIN LEVEL 7-10 Last administered on 03/01/16t 06:13; Admin Dose 2 MG; Start 02/29/16 at 13:00 Docusate Sodium (Colace) 100 mg Q12H PRN PO CONSTIPATION; Start 02/29/16 at 13: 00 Magnesium Hydroxide (Milk Of Mag) 30 ml DAILY PRN PO CONSTIPATION; Start at 13:00 Bisacodyl (Dulcolax Supp) 10 mg DAILY PRN [place] CONSTIPATION; Start 02/29/16 at 13 :00 Pantoprazole (Protonix Iv) 40 mg DAILY@06 IV Last administered on 03/04/16 06: 42; Admin Dose 40 MG; Start 03/01/16 at 06:00 Chlordiazepoxide (Librium) 25 mg TID PO ; Start 02/29/16 at 14:00 Hydralazine HCl (Apresoline) 10 mg Q4H PRN IV sbp>160 Last administered on 03/03 01:31; Admin Dose 10 MG; Start 02/29/16 at 14:00 Lorazepam (Ativan) 1 mg Q1HWA PRN IV CONTROL WITHDRAWAL SYMPTOMS Last administered on 02/29/16 23:26; Admin Dose 1 MG; Start 02/29/16 at 18:00 Diphenhydramine HCl (Benadryl) 25 mg Q6H PRN IV ALLERGIC REACTION Last administered on 03/01/16 06:57; Admin Dose 25 MG; Start 02/29/16 at 17:00 Metoprolol Tartrate (Lopressor) 5 mg Q6H PRN IV SBP>160 Last administered on 16:41; Admin Dose 5 MG; Start 03/01/16 at 09:30 Neomycin/ Polymyxin/ Bacitracin (Neosporin Topical Oint) 1 applic BID TOP Last administered on 03/04/16 09:15; Admin Dose 1 APPLIC; Start 03/02/16 at 21:00 Lorazepam 1 mg 1 mg Q4H IV Last administered on 03/03/16 16:03; Admin Dose 1 MG; Start 03/02/16 at 21:00 Dextrose 1,000 ml @ 100 mls/hr Q10H IV Last administered on 03/04/16 09:15; Admin Dose 100 MLS/HR; Start 03/03/16 at 13:00 Piperacillin Sod/ Tazobactam Sod 100 ml @ 200 mls/hr Q8 IVPB ; Start 03/04/16 at 14:00 Levofloxacin/ Dextrose 100 ml @ 100 mls/hr Q24H IVPB Last administered on 03/04t 13:04; Admin Dose 100 MLS/HR; Start 03/04/16 at 12:00 Vancomycin HCl 250 ml @ 125 mls/hr Q12H IVPB ; Start 03/04/16 at 15:00 Norepinephrine 250 ml @ 1.875 mls/ hr TITRATE IV ; Start 03/04/16 at 16:00; Stop 03/05/16 at 07:00 Phenylephrine HCl 250 ml @ 75 mls/hr TITRATE IV ; Start 03/04/16 at 16:00; Stop 03/05/16 at 07:00 Norepinephrine 16 mg/Dextrose 500 ml @ 0 mls/hr TITRATE IV ; Start 03/05/16 at 07:00 Phenylephrine HCl/ Dextrose (Kemal-Synephrine/ D5W) 500 ml @ 0 mls/hr TITRATE IV ; Start 03/05/16 at 07:00 RUBA NICHOLSON Mar 04, 2016 16:07
[2016-03-04 17:04] LABS: AADO2 Arterial 483.2 mmHg (7.0-24.0); Arterial Base Excess -6.7 mmol/L (-3.0-3); Arterial COHb 0.2 % (0.0-3.0); Arterial Fraction of Oxyhgb 98.1 % (93.0-99.0); Arterial HCO3 21.6 mmol/L (22.0-26.0); Arterial MetHb 0.3 % (0.0-1.5); Arterial Total Hemglobin 12.8 g/dl (12.0-18.0); MODE VENT - AC
--- NOTE | 2016-03-04 18:23 | RADRPT ---
PROCEDURE: Right Upper Quadrant Ultrasound. CLINICAL INDICATION: repeat incomplete study per Dr. Tamayo TECHNIQUE: Multiple real-time images were acquired of the patient's right upper quadrant abdomen a nd retroperitoneum utilizing a high resolution transducer. COMPARISON: Liver ultrasound from 03/04/2016 at 14:17 hours FINDINGS: The liver measures 16.2 cm, and demonstrates moderately increased echogenicity. The main portal vein is patent with proper directional flow. There is no intrahepatic biliary ductal dilatation. The ext rahepatic common bile duct measures 4 mm. There is cholelithiasis. There is no gallbladder wall thickening or pericholecystic fluid. The visualized pancreas is unremarkable. The right kidney measures 10.1 cm and demonstrates normal echotexture. There is no right renal calcu bola or hydronephrosis. The visualized abdominal aorta and IVC are grossly unremarkable. IMPRESSION: Mild hepatomegaly with moderate fatty infiltration. Cholelithiasis without evidence of acute cholecystitis. Normal CBD. RPTAT: EE Physician Karely Date Time Electronically viewed and signed by Physician Karely on 03/04/2016 18:23 /
--- NOTE | 2016-03-04 19:32 | CONS ---
Date/Time of Note Date/Time of Note DATE: 03/04/16 TIME: 19:26 Consult Date/Type/Reason Admit Date/Time Feb 29, 2016 at 12:20 Initial Consult Date 03/04/16 Type of Consultation: neurology Subjective S/p CPA [id number] today PEA. Intubated Objective Vital Signs Date Time Temp Pulse Resp B/P Pulse Ox O2 Delivery O2 Flow Rate FiO2 03/04/16 17:58 103 20 100 70 03/04/16 17:00 133/94 Mechanical Ventilator 03/04/16 16:00 97.8 03/04/16 08:43 2.0 Intake and Output 03/03/16 03/03/16 03/04/16 15:00 23:00 07:00 Intake Total 0 ml 1200 ml Output Total 700 ml 700 ml Balance -700 ml 500 ml Results/Medications Result Diagram: 03/04/16 0910 03/04/16 0910 Results 24 hrs Laboratory Tests Test 03/03/16 20:26 03/04/16 09:10 03/04/16 14:20 03/04/16 15:33 Arterial Blood HCO3 21.9 L 21.6 L Arterial Blood Base Excess -1.8 -6.7 L Arterial Blood Oxygen Saturation 95.3 98.6 H Chavo Test ACCEPTAB N/A Arterial Blood Gas Puncture Site Left Radial Right Brachial Arterial Blood Carboxyhemoglobin 0.3 0.2 Arterial Blood Date Drawn 03/03/2016 8:40:39 PM 03/04/2016 4:40:30 PM Arterial Blood Methemoglobin 0.3 0.3 Arterial Blood pCO2 (Temp correct) 34.5 L 54.9 H Arterial Blood pH (Temp corrected) 7.420 7.212 *L Arterial Blood pO2 (Temp corrected) 80.8 174.9 H Blood Gas A-a O2 Differential 92.6 H 483.2 H Blood Gas Modality NASAL CANNULA VENT - AC Blood Gas Notified Time 03/03/2016 8:47:08 PM 03/04/2016 5:04:44 PM Blood Gas Notified Whom CORBIN LEIJA Blood Gas Specimen Source Blood arterial Blood arterial Blood Gas Temperature 37.0 37.0 FiO2 30.0 100.0 Oxyhemoglobin Percent 94.7 98.1 Total Hemoglobin 15.1 12.8 Anion Gap 13 Band Neutrophils % 15.0 H Basophils # Basophils % Blood Morphology Comment Blood Urea Nitrogen 32 H Calcium Level 9.5 Carbon Dioxide Level 27 Chloride Level 125 H Creatinine 1.11 Differential Comment MANUAL DIFF Eosinophils # Eosinophils % Glucose Level 120 Hematocrit 40.3 L Hemoglobin 13.7 L Lymphocytes # 0.9 Lymphocytes % 12.0 L Mean Corpuscular Hemoglobin 32.0 Mean Corpuscular Hemoglobin Concent 34.1 Mean Corpuscular Volume 93.7 Mean Platelet Volume 9.0 Monocytes # 1.0 H Monocytes % 13.0 H Neutrophils # 4.7 Neutrophils % 60.0 Nucleated Red Blood Cells # Nucleated Red Blood Cells % Platelet Count 97 L Potassium Level 4.2 Red Blood Count 4.30 L Red Cell Distribution Width 14.4 Sodium Level 161 *H White Blood Count 7.9 Bedside Glucose 121 Blood Gas Actual Respiration Rate 14 Blood Gas Critical Value Read Back Jyoti DALTON RN Blood Gas Low PEEP Setting 5.0 Blood Gas Respiration Rate 14.0 Blood Gas Tidal Volume 500.0 Medications Current Medications Ondansetron HCl (Zofran Inj) 4 mg Q6H PRN IV NAUSEA AND/OR VOMITING; Start at 13:00 Acetaminophen (Tylenol Tab) 650 mg Q6H PRN PO PAIN LEVEL 1-3 OR FEVER; Start at 13:00 Acetaminophen (Tylenol Supp) 650 mg Q6H PRN [place] PAIN LEVEL 1-3 OR FEVER; Start 02/29/16 at 13:00 Acetaminophen/ Hydrocodone Bitart ([place] (5/325)) 1 tab Q6H PRN PO MODERATE PAIN LEVEL 4-6; Start 02/29/16 at 13:00 Acetaminophen/ Hydrocodone Bitart ([place] (5/325)) 2 tab Q6H PRN PO SEVERE PAIN LEVEL 7-10; Start 02/29/16 at 13:00 Morphine Sulfate (morphine) 2 mg Q4H PRN IV SEVERE PAIN LEVEL 7-10 Last administered on 03/01/16t 06:13; Admin Dose 2 MG; Start 02/29/16 at 13:00 Docusate Sodium (Colace) 100 mg Q12H PRN PO CONSTIPATION; Start 02/29/16 at 13: 00 Magnesium Hydroxide (Milk Of Mag) 30 ml DAILY PRN PO CONSTIPATION; Start at 13:00 Bisacodyl (Dulcolax Supp) 10 mg DAILY PRN [place] CONSTIPATION; Start 02/29/16 at 13 :00 Pantoprazole (Protonix Iv) 40 mg DAILY@06 IV Last administered on 03/04/16 06: 42; Admin Dose 40 MG; Start 03/01/16 at 06:00 Chlordiazepoxide (Librium) 25 mg TID PO ; Start 02/29/16 at 14:00 Hydralazine HCl (Apresoline) 10 mg Q4H PRN IV sbp>160 Last administered on 03/03 01:31; Admin Dose 10 MG; Start 02/29/16 at 14:00 Lorazepam (Ativan) 1 mg Q1HWA PRN IV CONTROL WITHDRAWAL SYMPTOMS Last administered on 02/29/16 23:26; Admin Dose 1 MG; Start 02/29/16 at 18:00 Diphenhydramine HCl (Benadryl) 25 mg Q6H PRN IV ALLERGIC REACTION Last administered on 03/01/16 06:57; Admin Dose 25 MG; Start 02/29/16 at 17:00 Metoprolol Tartrate (Lopressor) 5 mg Q6H PRN IV SBP>160 Last administered on 16:41; Admin Dose 5 MG; Start 03/01/16 at 09:30 Neomycin/ Polymyxin/ Bacitracin (Neosporin Topical Oint) 1 applic BID TOP Last administered on 03/04/16 09:15; Admin Dose 1 APPLIC; Start 03/02/16 at 21:00 Lorazepam 1 mg 1 mg Q4H IV Last administered on 03/03/16 16:03; Admin Dose 1 MG; Start 03/02/16 at 21:00 Piperacillin Sod/ Tazobactam Sod 100 ml @ 200 mls/hr Q8 IVPB ; Start 03/04/16 at 14:00 Levofloxacin/ Dextrose 100 ml @ 100 mls/hr Q24H IVPB Last administered on 03/04 13:04; Admin Dose 100 MLS/HR; Start 03/04/16 at 12:00 Norepinephrine 250 ml @ 1.875 mls/ hr TITRATE IV ; Start 03/04/16 at 16:00; Stop 03/05/16 at 07:00 Phenylephrine HCl 250 ml @ 75 mls/hr TITRATE IV ; Start 03/04/16 at 16:00; Stop 03/05/16 at 07:00 Norepinephrine 16 mg/Dextrose 500 ml @ 0 mls/hr TITRATE IV ; Start 03/05/16 at 07:00 Phenylephrine HCl 40 mg/Dextrose 500 ml @ 0 mls/hr TITRATE IV ; Start 03/05/16 at 07:00 Dextrose 1,000 ml @ 100 mls/hr Q10H IV Last administered on 03/04/16t 17:24; Admin Dose 100 MLS/HR; Start 03/04/16 at 17:00 Vancomycin HCl/ Dextrose (Vancocin/D5W) 250 ml @ 125 mls/hr Q12H IVPB ; Start 03/05/16 at 03:00 Assessment/Plan Chief Complaint/Hosp Course NEUROLOGIC: Unresponsive, not sedated, eyes closed. He has no definite response to visual threat bilaterally. Pupils about 3 mm on the right, 5 mm on the left fixed. Left eyelid is swollen and covering the eye. Corneal reflexes absent bilaterally. Gag is absent. Motor strength examination shows absence of spontaneous movements and response to pain, flaccid tone. IMPRESSION: S/p CPA. Severe encephalopathy, anoxic. EEG, repeat CT head. Clinical exam could be c/w brain . Consider apnea test. HIV, ETOH withdrawal. Dr. Vazquez to follow Problems: JERZY EDEN MD Mar 04, 2016 19:32
[2016-03-04] MEDS: NORepinephrine 8MG/250 ML (PMX 250 ML IV SCH ×2 (19:54→22:21)
--- NOTE | 2016-03-04 20:53 | QN ---
Documentation Comment Emergency medicine consultation note: HPI: 55-year-old man recently admitted for intoxication and alcohol withdrawal lost pulses while on the floor, initial rhythm was pulseless electrical activity , nurses found him apneic and pulseless called the CODE BLUE. Immediate chest compressions were started. It seems patient is also being treated for nonspecific sepsis with IV antibiotics as well. Past medical history: Alcohol and drug abuse Physical exam: GENERAL: Encephalopathic, unresponsive, left orbital contusion HEENT: There is a left orbital contusion and hematoma, no cervical spine deformity, no goiter NEURO: Unresponsive, pupils minimally reactive, no facial asymmetry or focal deficits CARDIAC: No heart sounds were pulses palpated LUNGS: Clear lungs with bagging ABDOMEN: Soft nondistended abdomen no rigidity SKIN: Skin is hot to touch, multiple tattoos and superficial ecchymoses, no open lacerations, target lesions, or ulcers EXTREMITIES: No clubbing cyanosis or edema, calves are bilaterally symmetrical, no Homans sign, no popliteal cord sign. Distal pulses equal and bilateral PSYCH: Unable to assess Medical decision making: A CODE BLUE was called which I responded to, high- quality chest compressions were immediately started an initial rhythm was pulseless electrical activity with a narrow complex. Endotracheal Intubation by me: Pre assessment performed. See preceding note for details. Pre-oxygenation performed with 100% oxygen RSI: Performed w/o complication or hypoxic events. Medications as ordered. Blade: Mac 4 ET Tube: 7.5 cm Depth: 22 cm at the lip Intubation confirmed by colorimetric CO2, equal breath sounds, quiet over the stomach. Chest X-ray 1V was ordered by me, results are pending I will follow-up Patient was given 2 doses of epinephrine, and due to his alcoholism history I administered magnesium 2 g IV. After magnesium treatment and continue chest compressions rhythm change to Torsades de pointes, I then administered defibrillated the patient and administered another 2 g of magnesium intravenously as well as sodium bicarbonate 50 mEq IV and calcium carbonate 1 g IV. Patient developed strong pulses with a good blood pressure. I obtained peripheral IV access using the left external jugular vein, and ordered 1 L normal saline intravenously Critical Care: Time: 35 minutes, this was time separate from other procedures. Treatments/Evaluations: Close monitoring and treatment of unstable vital signs, cardiorespiratory, and neurologic status, while maintaining tight balance of fluid, respiratory, and cardiac interventions. Diagnostic impression: #1 acute cardiopulmonary arrest with return of spontaneous circulation 2. Torsades de pointes ABIMBOLA ALICIA MD Mar 04, 2016 20:53
--- NOTE | 2016-03-04 21:34 | QN ---
Documentation Comment I was called out of the emergency department to room 113 for a CODE BLUE event. The patient was receiving high-quality CPR and being bagged by respiratory therapy. I immediately took over as the CODE BLUE leader and ran the code. Please see the code sheet for full details. The patient received epinephrine, bicarbonate, and 2 defibrillations. The final results of the CODE BLUE was return of spontaneous circulation. HPI: Please note the history and physical exam is limited as the patient is receiving CPR at this time. The patient is in full cardiac arrest. Physical exam: The patient is being bagged by respiratory therapy. There is no movement. GCS is 3. Defibrillation #1: Patient required defibrillation during the CODE BLUE Technique: Biphasic defibrillation at 200 J for ventricular fibrillation Defibrillation #2: Patient required defibrillation during the CODE BLUE Technique: Biphasic defibrillation at 200 J for ventricular fibrillation YOEL ZHAO MD Mar 04, 2016 21:34
[2016-03-04] MEDS ORDERED: DOPamine 800 MG in DEXTROSE 5% 230 ML IV SCH (22:00)
[2016-03-04] MEDS: VASOPRESSIN 60 UNIT in DEXTROSE 5% 57 ML IV SCH (22:00)
[2016-03-04 22:10] LABS: HEMATOCRIT 38.7 % (42.0-52.0); MEAN CORPUSCULAR HGB CONC 33.7 g/dl (32.0-37.0)
[2016-03-04 22:15] LABS: HEMOGLOBIN 13.1 g/dl (14.0-18.0); MEAN CORPUSCULAR HEMOGLOBIN 31.9 pg (29.0-33.0); MEAN CORPUSCULAR VOLUME 94.7 fl (82.0-101.0); MEAN PLATELET VOLUME 8.1 fl (7.4-10.4); PLATELET COUNT 61 10^3/UL (140-440); RED BLOOD COUNT 4.09 10^6/ul (4.70-6.10); RED CELL DISTRIBUTION WIDTH 14.8 % (11.5-14.5); UNCORRECTED WBC 5.1 10^3/ul (4.8-10.8); WHITE BLOOD COUNT 5.1 10^3/ul (4.8-10.8)
[2016-03-04 22:17] LABS: CONDITION 1; LH ANALYZER COMMENTS 1; SUSPECT 1
[2016-03-04 22:21] LABS: AADO2 Arterial 582.2 mmHg (7.0-24.0); Arterial COHb 0.3 % (0.0-3.0); Arterial Fraction of Oxyhgb 93.7 % (93.0-99.0); Arterial HCO3 20.5 mmol/L (22.0-26.0); Arterial MetHb 0.1 % (0.0-1.5); MODE VENT - AC
[2016-03-04 22:21] LABS: ALBUMIN 2.1 g/dl (3.3-4.9)
[2016-03-04 22:22] LABS: POTASSIUM 3.5 mmol/L (3.5-5.1)
[2016-03-04 22:24] LABS: ALBUMIN/GLOBULIN RATIO 0.56; BILIRUBIN,DIRECT 1.6 mg/dl (0.00-0.20); BILIRUBIN,INDIRECT 0.8 mg/dl (0-1.1); BILIRUBIN,TOTAL 2.4 mg/dl (0.2-1.3); CREATININE 1.77 mg/dl (0.61-1.24); TOTAL PROTEIN 5.8 g/dl (6.1-8.1)
[2016-03-04 22:25] LABS: CALCIUM 9.5 mg/dl (8.4-10.2); MAGNESIUM 3.2 mg/dl (1.7-2.5)
[2016-03-04] MEDS ORDERED: SOD CHLORIDE 0.9% 500 ML IV ONE (22:30)
[2016-03-04 22:49] LABS: EOSINOPHILS # 0.1 10^3/ul (0.0-0.5); LYMPHOCYTES # 0.9 10^3/ul (0.8-2.9); MONOCYTE # 1.5 10^3/ul (0.3-0.9); NEUTROPHIL # 0.8 10^3/ul (1.6-7.5)
[2016-03-04 22:50] LABS: PLATELET ESTIMATE PLT APPEAR DECREASED
[2016-03-04] MEDS ORDERED: POTASSIUM CHLORIDE 50 ML IVPB ONE (23:30)
[2016-03-04] MEDS ORDERED: DEXTROSE 5% WATER 500 ML BAG IV ONE (23:30)
[2016-03-05] VITALS (105 sets, daily range): BP systolic 36–160; BP diastolic 28–103; PULSE 74–112; RESP 20
[2016-03-05] MEDS: DEXTROSE 5% 1,000 ML IV SCH ×3 (00:18→19:28)
[2016-03-05] MEDS ORDERED: VANCOMYCIN 1 GM in DEXTROSE 5% 250 ML IVPB SCH (03:00)
[2016-03-05] MEDS: PIPER-TAZO 3.375 GM IV (PMX) 100 ML IVPB SCH ×3 (05:19→22:06)
[2016-03-05] MEDS: PANTOPRAZOLE 40 MG INJ IV SCH (05:19)
[2016-03-05 05:35] LABS: CREATININE 1.54 mg/dl (0.61-1.24)
[2016-03-05 05:36] LABS: CALCIUM 9.4 mg/dl (8.4-10.2); MAGNESIUM 2.9 mg/dl (1.7-2.5); PHOSPHORUS 3.3 mg/dl (2.5-4.9)
--- NOTE | 2016-03-05 05:38 | RADRPT ---
PROCEDURE: XR Chest. CLINICAL INDICATION: Nasogastric tube placement TECHNIQUE: A single AP view of the chest was obtained. COMPARISON: Chest x-ray dated 03/03/2016 FINDINGS: The endotracheal tube tip is approximately 6.4 cm above the mariia. The tip of the enteric tube ex tends below the left diaphragm. There are right lower lobe interstitial opacities. No pleural effusion or pneumothorax is seen. Th e cardiomediastinal silhouette is within normal limits for size. The osseous structures are unremar kable. IMPRESSION: 1. Right lower lobe interstitial opacities may reflect interstitial edema or pneumonia. Findings a re not significantly changed when compared to the prior examination. 2. Tubes and lines, as described above. RPTAT: HH .Ivania Liu MD, Date Time Electronically viewed and signed by .Ivania Liu MD, on 03/05/2016 05:38 .G/
[2016-03-05 06:00] LABS: HEMATOCRIT 35.9 % (42.0-52.0); HEMOGLOBIN 12.5 g/dl (14.0-18.0); MEAN CORPUSCULAR HEMOGLOBIN 32.7 pg (29.0-33.0); MEAN CORPUSCULAR HGB CONC 34.8 g/dl (32.0-37.0); MEAN CORPUSCULAR VOLUME 93.8 fl (82.0-101.0); MEAN PLATELET VOLUME 8.3 fl (7.4-10.4); PLATELET COUNT 44 10^3/UL (140-440); RED BLOOD COUNT 3.83 10^6/ul (4.70-6.10); RED CELL DISTRIBUTION WIDTH 14.5 % (11.5-14.5); UNCORRECTED WBC 5.3 10^3/ul (4.8-10.8); WHITE BLOOD COUNT 5.3 10^3/ul (4.8-10.8)
[2016-03-05 06:16] LABS: CONDITION 1; LH ANALYZER COMMENTS 1; SUSPECT 1
[2016-03-05] MEDS: NORepinephrine 8MG/250 ML (PMX 250 ML IV SCH (06:16)
[2016-03-05] MEDS ORDERED: EPINEPHrine 0.1 MG/ML SYG ONE (07:00)
[2016-03-05] MEDS ORDERED: PHENYLephrine 40 MG in DEXTROSE 5% 496 ML IV SCH (07:00)
[2016-03-05] MEDS ORDERED: NA BICARBONATE 8.4% 50 ML SYG ONE (07:00)
--- NOTE | 2016-03-05 07:54 | CONS ---
Date/Time of Note Date/Time of Note DATE: 03/05/16 TIME: 07:47 Assessment/Plan Assessment/Plan Additional Assessment/Plan Assessment and recommendation 1. Patient admitted with altered level of consciousness was severely hyponatremic and hyperchloremic with possibly some element of alcohol/drug withdrawal. Next 2. The patient was being treated on the medical floor with IV hydration when the patient decompensated a CODE BLUE was called in and prolonged CPR was done with revival of vital signs and however remains completely unresponsive now with fixed and dilated pupils. Next 3. Possibly some element of aspiration pneumonia, chest x-ray from today is pending chest x-ray was reviewed last night for after intubation which is revealing patchy infiltrates which are not significant. Next 4. HIV positive CD4 CD8 counts are not available as well as extent of disease also is unclear at this point. 5. Patient is currently in isolation meningitis to be ruled out patient awaiting lumbar puncture. 6. Time Checker hypernatremia patient currently on D5 drip as well as free water via NG tube for correction. 7. Hypotension however clinically improved patient currently on 10 mics of Levophed per minute.. 8. ABG from this morning is pending as well as a chest x-ray. Continue current treatment once ABG and chest x-rays are done I will review them and make further recommendations. Meanwhile continue current supportive care, broad-spectrum antibiotic coverage. Her most is a very guarded on account of along CPR dilated pupils and severe mental unresponsiveness. About 35 minutes of critical care time was spent evaluating the patient. Consultation Date/Type/Reason Admit Date/Time Feb 29, 2016 at 12:20 Initial Consult Date 03/04/16 Type of Consultation: neurology 24 HR Interval Summary Free Text/Dictation Patient's condition remains extremely critical still requiring full ventilator support however patient is not requiring low-dose Levophed for blood pressure maintenance currently at 10 mics per minute patient has not required any sedation. No seizure activity reported. Next General examination; middle aged man or intubated completely unresponsive. Exam/Review of Systems Vital Signs Vitals Vital Signs Date Time Temp Pulse Resp B/P Pulse Ox O2 Delivery O2 Flow Rate FiO2 03/05/16 06:15 82 20 120/74 100 03/05/16 05:22 70 03/05/16 04:00 96.5 Mechanical Ventilator 03/04/16 08:43 2.0 Intake and Output 03/04/16 03/04/16 03/05/16 15:00 23:00 07:00 Intake Total 681.25 ml 2320 ml Output Total 375 ml 1450 ml Balance 306.25 ml 870 ml Exam H EENT examination; supple neck, no JVD, or intubated. Pupils are dilated bilaterally and nonreactive to light. There is soft tissue swelling involving the left periorbital area. No neck masses, no thyromegaly, no lymphadenopathy, no neck bruits. Next Chest examination; clear breath sounds bilaterally. S1-S2 audible no murmurs regular rhythm. Abdomen examination; soft, scaphoid. Bowel sounds are absent. No organomegaly.. There is a right femoral arterial line and a right femoral central venous line in place. Extremity examination; no peripheral edema. Also 1+ bilaterally. [employer]CHIT[employer] examination; patient completely unresponsive. Results Result Diagram: 03/05/16 0430 03/05/16 0430 Results 24 hrs Laboratory Tests Test 03/04/16 09:10 03/04/16 14:20 03/04/16 15:33 03/04/16 21:48 Anion Gap 13 Band Neutrophils % 15.0 H Basophils # Basophils % Blood Morphology Comment Blood Urea Nitrogen 32 H Calcium Level 9.5 Carbon Dioxide Level 27 Chloride Level 125 H Creatinine 1.11 Differential Comment MANUAL DIFF Eosinophils # Eosinophils % Glucose Level 120 Hematocrit 40.3 L Hemoglobin 13.7 L Lymphocytes # 0.9 Lymphocytes % 12.0 L Mean Corpuscular Hemoglobin 32.0 Mean Corpuscular Hemoglobin Concent 34.1 Mean Corpuscular Volume 93.7 Mean Platelet Volume 9.0 Monocytes # 1.0 H Monocytes % 13.0 H Neutrophils # 4.7 Neutrophils % 60.0 Nucleated Red Blood Cells # Nucleated Red Blood Cells % Platelet Count 97 L Potassium Level 4.2 Red Blood Count 4.30 L Red Cell Distribution Width 14.4 Sodium Level 161 *H White Blood Count 7.9 Bedside Glucose 121 Arterial Blood HCO3 21.6 L 20.5 L Arterial Blood Base Excess -6.7 L -7.0 L Arterial Blood Oxygen Saturation 98.6 H 94.1 L Chavo Test N/A N/A Arterial Blood Gas Puncture Site Right Brachial A-Line Arterial Blood Carboxyhemoglobin 0.2 0.3 Arterial Blood Date Drawn 03/04/2016 4:40:30 PM 03/04/2016 10:05:20 PM Arterial Blood Methemoglobin 0.3 0.1 Arterial Blood pCO2 (Temp correct) 54.9 H 48.4 H Arterial Blood pH (Temp corrected) 7.212 *L 7.244 *L Arterial Blood pO2 (Temp corrected) 174.9 H 82.4 Blood Gas A-a O2 Differential 483.2 H 582.2 H Blood Gas Actual Respiration Rate 14 20 Blood Gas Critical Value Read Back Jyoti WALKER RN Blood Gas Low PEEP Setting 5.0 5.0 Blood Gas Modality VENT - AC VENT - AC Blood Gas Notified Time 03/04/2016 5:04:44 PM 03/04/2016 10:20:54 PM Blood Gas Notified Whom HELADIO Blood Gas Respiration Rate 14.0 20.0 Blood Gas Specimen Source Blood arterial Blood arterial Blood Gas Temperature 37.0 37.0 Blood Gas Tidal Volume 500.0 500.0 FiO2 100.0 100.0 Oxyhemoglobin Percent 98.1 93.7 Total Hemoglobin 12.8 14.0 Test 03/04/16 22:00 03/05/16 04:30 Alanine Aminotransferase (ALT/SGPT) 113 H Albumin 2.1 L Albumin/Globulin Ratio 0.56 Alkaline Phosphatase 590 H Anion Gap 18 H 15 Aspartate Amino Transf (AST/SGOT) 133 H Band Neutrophils % 34.0 H Blood Morphology Comment Blood Urea Nitrogen 43 #H 47 H Calcium Level 9.5 9.4 Carbon Dioxide Level 24 25 Chloride Level 126 H 127 H Creatinine 1.77 H 1.54 H Direct Bilirubin 1.60 H Eosinophils # 0.1 0.0 Eosinophils % 1.0 0.4 Globulin 3.70 H Glucose Level 142 158 Hematocrit 38.7 L 35.9 L Hemoglobin 13.1 L 12.5 L Indirect Bilirubin 0.8 Lymphocytes # 0.9 0.8 Lymphocytes % 18.0 14.8 L Magnesium Level 3.2 H 2.9 H Mean Corpuscular Hemoglobin 31.9 32.7 Mean Corpuscular Hemoglobin Concent 33.7 34.8 Mean Corpuscular Volume 94.7 93.8 Mean Platelet Volume 8.1 8.3 Metamyelocytes # 0.2 Metamyelocytes % 3.0 H Monocytes # 1.5 H 0.0 L Monocytes % 29.0 H 0.7 Neutrophils # 0.8 L 4.4 Neutrophils % 15.0 L 84.1 H Platelet Count 61 #L 44 #L Platelet Estimate PLT APPEAR DECREASED Potassium Level 3.5 4.0 Red Blood Count 4.09 L 3.83 L Red Cell Distribution Width 14.8 H 14.5 Sodium Level 164 *H 163 *H Total Bilirubin 2.4 H Total Protein 5.8 L White Blood Count 5.1 # 5.3 Basophils # 0.0 Basophils % 0.0 Nucleated Red Blood Cells # 0.0 Nucleated Red Blood Cells % 0.0 Phosphorus Level 3.3 Medications Medications Current Medications Ondansetron HCl (Zofran Inj) 4 mg Q6H PRN IV NAUSEA AND/OR VOMITING; Start at 13:00 Acetaminophen (Tylenol Tab) 650 mg Q6H PRN PO PAIN LEVEL 1-3 OR FEVER; Start at 13:00 Acetaminophen (Tylenol Supp) 650 mg Q6H PRN [place] PAIN LEVEL 1-3 OR FEVER; Start 02/29/16 at 13:00 Acetaminophen/ Hydrocodone Bitart ([place] (5/325)) 1 tab Q6H PRN PO MODERATE PAIN LEVEL 4-6; Start 02/29/16 at 13:00 Acetaminophen/ Hydrocodone Bitart ([place] (5/325)) 2 tab Q6H PRN PO SEVERE PAIN LEVEL 7-10; Start 02/29/16 at 13:00 Morphine Sulfate (morphine) 2 mg Q4H PRN IV SEVERE PAIN LEVEL 7-10 Last administered on 03/01/16 06:13; Admin Dose 2 MG; Start 02/29/16 at 13:00 Docusate Sodium (Colace) 100 mg Q12H PRN PO CONSTIPATION; Start 02/29/16 at 13: 00 Magnesium Hydroxide (Milk Of Mag) 30 ml DAILY PRN PO CONSTIPATION; Start at 13:00 Bisacodyl (Dulcolax Supp) 10 mg DAILY PRN [place] CONSTIPATION; Start 02/29/16 at 13 :00 Pantoprazole (Protonix Iv) 40 mg DAILY@06 IV Last administered on 03/05/16 05: 19; Admin Dose 40 MG; Start 03/01/16 at 06:00 Chlordiazepoxide (Librium) 25 mg TID PO ; Start 02/29/16 at 14:00 Hydralazine HCl (Apresoline) 10 mg Q4H PRN IV sbp>160 Last administered on 03/03 01:31; Admin Dose 10 MG; Start 02/29/16 at 14:00 Diphenhydramine HCl (Benadryl) 25 mg Q6H PRN IV ALLERGIC REACTION Last administered on 03/01/16 06:57; Admin Dose 25 MG; Start 02/29/16 at 17:00 Neomycin/ Polymyxin/ Bacitracin 1 applic 1 applic BID TOP Last administered on 03/04/16 21:00; Admin Dose 1 APPLIC; Start 03/02/16 at 21:00 Piperacillin Sod/ Tazobactam Sod 100 ml @ 200 mls/hr Q8 IVPB Last administered on 03/05/16 05:19; Admin Dose 200 MLS/HR; Start 03/04/16 at 14:00 Levofloxacin/ Dextrose 100 ml @ 100 mls/hr Q24H IVPB Last administered on 03/04 13:04; Admin Dose 100 MLS/HR; Start 03/04/16 at 12:00 Norepinephrine 16 mg/Dextrose 500 ml @ 0 mls/hr TITRATE IV ; Start 03/05/16 at 07:00 Phenylephrine HCl 40 mg/Dextrose 500 ml @ 0 mls/hr TITRATE IV ; Start 03/05/16 at 07:00 Dextrose 1,000 ml @ 100 mls/hr Q10H IV Last administered on 03/05/16 00:18; Admin Dose 100 MLS/HR; Start 03/04/16 at 17:00 Vancomycin HCl 1 gm/Dextrose 250 ml @ 125 mls/hr Q12H IVPB Last administered on 03/05/16 02:05; Admin Dose 125 MLS/HR; Start 03/05/16 at 03:00 Vasopressin 60 unit/Dextrose 60 ml @ 0 mls/hr Q12H IV ; Start 03/04/16 at 22:00 Dopamine HCl/ Dextrose (D5W) 250 ml @ 2.43 mls/hr TITRATE IV ; Start 03/04/16 at 22:00 KEANU CHE Mar 05, 2016 07:54
--- NOTE | 2016-03-05 08:47 | RADRPT ---
PROCEDURE: XR Chest. CLINICAL INDICATION: Respiratory failure TECHNIQUE: Chest AP portable. COMPARISON: 03/04/2016 FINDINGS: Endotracheal tube 4-5 cm above the mariia. Nasogastric tube in the stomach. The mediastinal structures are unremarkable. The heart is normal in size and configuration. There is pulmonary venous hypertension. There is an increase in the right perihilar and RLL patchy consol idations. There is a mild left perihilar and LLL patchy consolidation. The pleural spaces are unre markable. The axial skeleton is unremarkable. IMPRESSION: Pulmonary venous hypertension Increase in right perihilar and RLL patchy consolidations Mild left perihilar and LLL patchy consolidations RPTAT: [facility] .Sotero Troncoso MD, MD Date Time Electronically viewed and signed by .Sotero Troncoso MD, on 03/05/2016 08:46 .B/
[2016-03-05] MEDS: NEOMYC/POLYMYX/BACIT 30 GM OINT TOP SCH ×2 (09:00→20:58)
--- NOTE | 2016-03-05 09:36 | PN ---
Date/Time of Note Date/Time of Note DATE: 03/05/16 TIME: 09:31 Assessment/Plan VTE Prophylaxis VTE Prophylaxis Intervention: SCD's Lines/Catheters IV Catheter Type (from Nrs): Central Line Central line still needed: Yes Urinary Cath still in place: Yes Reason Cath still needed: urinary retention Assessment/Plan Chief Complaint/Hosp Course A/P: 55 M with: 1. Cardiac Arrest with ROSC -Etiology unclear, Cards consult with Dr Morrissey -Intubated and transferred to the ICU - f/u CV rec's, EEG, monitor VS 2. Encephalopathy likely secondary to alcohol withdrawal vs HIV Encephalopathy. Positive HIV serology. neurologist following. EEG-Abnormal study secondary to background slowing, which could reflect presence of encephalopathy. - Continue on Ativan for alcohol withdrawal. cont iv hydration 3. Hypertensive urgency-now Hypotensive - on pressors - monitor, try to wean as tolerated. 4. 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 -Advise about cessation once patient more alert 5. Transaminitis. Patient with alcohol abuse as well as hepatitis - monitor LFT's 6. Hepatitis C.HCV RNA level high. cont with ID recs. 7. Hypokalemia. Will monitor and replete as needed 8. HIV (+) serology. cont abx/antiretrovirals per ID - f/u CD4 ct 9. Hypernatremia- still elevated -cont D5W DVT prophylaxis: [facility] [place] Critical care time spent with pt care today = 45 min. Problems: Subjective 24 Hr Interval Summary Free Text/Dictation Intubated, sedated, on pressors. Exam/Review of Systems Vital Signs Vitals Vital Signs Date Time Temp Pulse Resp B/P Pulse Ox O2 Delivery O2 Flow Rate FiO2 03/05/16 07:40 82 20 100 70 03/05/16 06:15 120/74 03/05/16 04:00 96.5 Mechanical Ventilator 03/04/16 08:43 2.0 Intake and Output 03/04/16 03/04/16 03/05/16 15:00 23:00 07:00 Intake Total 681.25 ml 2320 ml Output Total 375 ml 1450 ml Balance 306.25 ml 870 ml Exam Constitutional: non-verbal ENMT: intubated Respiratory: clear to auscultation Cardiovascular: regular rate and rhythm Gastrointestinal: soft, No distended Musculoskeletal: nl extremities to inspection Results Result Diagram: 03/05/16 0430 03/05/16 0430 Results 24 hrs Laboratory Tests Test 03/04/16 14:20 03/04/16 15:33 03/04/16 21:48 03/04/16 22:00 Bedside Glucose 121 Arterial Blood HCO3 21.6 L 20.5 L Arterial Blood Base Excess -6.7 L -7.0 L Arterial Blood Oxygen Saturation 98.6 H 94.1 L Cahvo Test N/A N/A Arterial Blood Gas Puncture Site Right Brachial A-Line Arterial Blood Carboxyhemoglobin 0.2 0.3 Arterial Blood Date Drawn 03/04/2016 4:40:30 PM 03/04/2016 10:05:20 PM Arterial Blood Methemoglobin 0.3 0.1 Arterial Blood pCO2 (Temp correct) 54.9 H 48.4 H Arterial Blood pH (Temp corrected) 7.212 *L 7.244 *L Arterial Blood pO2 (Temp corrected) 174.9 H 82.4 Blood Gas A-a O2 Differential 483.2 H 582.2 H Blood Gas Actual Respiration Rate 14 20 Blood Gas Critical Value Read Back Jyoti WALKER RN Blood Gas Low PEEP Setting 5.0 5.0 Blood Gas Modality VENT - AC VENT - AC Blood Gas Notified Time 03/04/2016 5:04:44 PM 03/04/2016 10:20:54 PM Blood Gas Notified Whom HELADIO Blood Gas Respiration Rate 14.0 20.0 Blood Gas Specimen Source Blood arterial Blood arterial Blood Gas Temperature 37.0 37.0 Blood Gas Tidal Volume 500.0 500.0 FiO2 100.0 100.0 Oxyhemoglobin Percent 98.1 93.7 Total Hemoglobin 12.8 14.0 Alanine Aminotransferase (ALT/SGPT) 113 H Albumin 2.1 L Albumin/Globulin Ratio 0.56 Alkaline Phosphatase 590 H Anion Gap 18 H Aspartate Amino Transf (AST/SGOT) 133 H Band Neutrophils % 34.0 H Blood Morphology Comment Blood Urea Nitrogen 43 #H Calcium Level 9.5 Carbon Dioxide Level 24 Chloride Level 126 H Creatinine 1.77 H Direct Bilirubin 1.60 H Eosinophils # 0.1 Eosinophils % 1.0 Globulin 3.70 H Glucose Level 142 Hematocrit 38.7 L Hemoglobin 13.1 L Indirect Bilirubin 0.8 Lymphocytes # 0.9 Lymphocytes % 18.0 Magnesium Level 3.2 H Mean Corpuscular Hemoglobin 31.9 Mean Corpuscular Hemoglobin Concent 33.7 Mean Corpuscular Volume 94.7 Mean Platelet Volume 8.1 Metamyelocytes # 0.2 Metamyelocytes % 3.0 H Monocytes # 1.5 H Monocytes % 29.0 H Neutrophils # 0.8 L Neutrophils % 15.0 L Platelet Count 61 #L Platelet Estimate PLT APPEAR DECREASED Potassium Level 3.5 Red Blood Count 4.09 L Red Cell Distribution Width 14.8 H Sodium Level 164 *H Total Bilirubin 2.4 H Total Protein 5.8 L White Blood Count 5.1 # Test 03/05/16 04:30 Anion Gap 15 Basophils # 0.0 Basophils % 0.0 Blood Morphology Comment Blood Urea Nitrogen 47 H Calcium Level 9.4 Carbon Dioxide Level 25 Chloride Level 127 H Creatinine 1.54 H Eosinophils # 0.0 Eosinophils % 0.4 Glucose Level 158 Hematocrit 35.9 L Hemoglobin 12.5 L Lymphocytes # 0.8 Lymphocytes % 14.8 L Magnesium Level 2.9 H Mean Corpuscular Hemoglobin 32.7 Mean Corpuscular Hemoglobin Concent 34.8 Mean Corpuscular Volume 93.8 Mean Platelet Volume 8.3 Monocytes # 0.0 L Monocytes % 0.7 Neutrophils # 4.4 Neutrophils % 84.1 H Nucleated Red Blood Cells # 0.0 Nucleated Red Blood Cells % 0.0 Phosphorus Level 3.3 Platelet Count 44 #L Potassium Level 4.0 Red Blood Count 3.83 L Red Cell Distribution Width 14.5 Sodium Level 163 *H White Blood Count 5.3 Medications Medications Current Medications Ondansetron HCl (Zofran Inj) 4 mg Q6H PRN IV NAUSEA AND/OR VOMITING; Start at 13:00 Acetaminophen (Tylenol Tab) 650 mg Q6H PRN PO PAIN LEVEL 1-3 OR FEVER; Start at 13:00 Acetaminophen (Tylenol Supp) 650 mg Q6H PRN [place] PAIN LEVEL 1-3 OR FEVER; Start 02/29/16 at 13:00 Acetaminophen/ Hydrocodone Bitart ([place] (5/325)) 1 tab Q6H PRN PO MODERATE PAIN LEVEL 4-6; Start 02/29/16 at 13:00 Acetaminophen/ Hydrocodone Bitart ([place] (5/325)) 2 tab Q6H PRN PO SEVERE PAIN LEVEL 7-10; Start 02/29/16 at 13:00 Morphine Sulfate (morphine) 2 mg Q4H PRN IV SEVERE PAIN LEVEL 7-10 Last administered on 03/01/16 06:13; Admin Dose 2 MG; Start 02/29/16 at 13:00 Docusate Sodium (Colace) 100 mg Q12H PRN PO CONSTIPATION; Start 02/29/16 at 13: 00 Magnesium Hydroxide (Milk Of Mag) 30 ml DAILY PRN PO CONSTIPATION; Start at 13:00 Bisacodyl (Dulcolax Supp) 10 mg DAILY PRN [place] CONSTIPATION; Start 02/29/16 at 13 :00 Pantoprazole (Protonix Iv) 40 mg DAILY@06 IV Last administered on 03/05/16 05: 19; Admin Dose 40 MG; Start 03/01/16 at 06:00 Chlordiazepoxide (Librium) 25 mg TID PO ; Start 02/29/16 at 14:00 Hydralazine HCl (Apresoline) 10 mg Q4H PRN IV sbp>160 Last administered on 03/03 01:31; Admin Dose 10 MG; Start 02/29/16 at 14:00 Diphenhydramine HCl (Benadryl) 25 mg Q6H PRN IV ALLERGIC REACTION Last administered on 03/01/16 06:57; Admin Dose 25 MG; Start 02/29/16 at 17:00 Neomycin/ Polymyxin/ Bacitracin 1 applic 1 applic BID TOP Last administered on 03/04/16 21:00; Admin Dose 1 APPLIC; Start 03/02/16 at 21:00 Piperacillin Sod/ Tazobactam Sod 100 ml @ 200 mls/hr Q8 IVPB Last administered on 03/05/16 05:19; Admin Dose 200 MLS/HR; Start 03/04/16 at 14:00 Levofloxacin/ Dextrose 100 ml @ 100 mls/hr Q24H IVPB Last administered on 03/04 13:04; Admin Dose 100 MLS/HR; Start 03/04/16 at 12:00 Norepinephrine 16 mg/Dextrose 500 ml @ 0 mls/hr TITRATE IV ; Start 03/05/16 at 07:00 Phenylephrine HCl 40 mg/Dextrose 500 ml @ 0 mls/hr TITRATE IV ; Start 03/05/16 at 07:00 Dextrose 1,000 ml @ 100 mls/hr Q10H IV Last administered on 03/05/16 00:18; Admin Dose 100 MLS/HR; Start 03/04/16 at 17:00 Vancomycin HCl 1 gm/Dextrose 250 ml @ 125 mls/hr Q12H IVPB Last administered on 03/05/16 02:05; Admin Dose 125 MLS/HR; Start 03/05/16 at 03:00 Vasopressin 60 unit/Dextrose 60 ml @ 0 mls/hr Q12H IV ; Start 03/04/16 at 22:00 Dopamine HCl/ Dextrose (D5W) 250 ml @ 2.43 mls/hr TITRATE IV ; Start 03/04/16 at 22:00 JOSS NEFF Mar 05, 2016 09:35
[2016-03-05] MEDS: VASOPRESSIN 60 UNIT in DEXTROSE 5% 57 ML IV SCH ×2 (10:00→21:48)
[2016-03-05] MEDS: CHLORDIAZEPOXIDE 25 MG CAP PO SCH ×3 (10:06→20:58)
[2016-03-05 10:41] LABS: AADO2 Arterial 324.3 mmHg (7.0-24.0); Arterial Base Excess -2.2 mmol/L (-3.0-3); Arterial COHb 0.3 % (0.0-3.0); Arterial Fraction of Oxyhgb 97.7 % (93.0-99.0); Arterial HCO3 23.1 mmol/L (22.0-26.0); Arterial MetHb 0.2 % (0.0-1.5); Arterial Total Hemglobin 12.7 g/dl (12.0-18.0); MODE VENT - AC
[2016-03-05 11:42] LABS: LYMPHOCYTES # 1.5 10^3/ul (0.8-2.9); MONOCYTE # 0.6 10^3/ul (0.3-0.9); MYELOCYTES # 0.2; NEUTROPHIL # 1.6 10^3/ul (1.6-7.5)
[2016-03-05 11:43] LABS: PLATELET ESTIMATE PLT APPEAR DECREASED; TOXIC GRANULATION 1+
[2016-03-05] MEDS: LEVOFLOXACIN 500MG/D5W (PMX) 100 ML IVPB SCH (12:00)
--- NOTE | 2016-03-05 12:24 | PN ---
DATE: 03/05/2016 INFECTIOUS DISEASE PROGRESS NOTE SUBJECTIVE: The patient coded yesterday and was transferred to the ICU, currently intubated, obtunded, with chest x-ray this morning revealing pulmonary versus venous hypertension, increase in right perihilar and right lower lobe patchy consolidation, as well as mid left perihilar and left lower lobe patchy consolidations. OBJECTIVE: VITAL SIGNS: Temperature 96.5, pulse 84, respirations 20, blood pressure 120/74 , saturation 100 on 70%. WBC 5.3, H and H 12.5 and 35.9, platelets 44, neutrophils 84.1, BUN 47, creatinine 1.54. MICROBIOLOGY: Blood culture growing yeast. ANTIMICROBIALS: The patient is on IV vancomycin, Zosyn and Levaquin. INDWELLINGS: The patient has a right femoral triple lumen catheter and A-line placed on 03/04/2016. Also a [place], endotracheal tube and orogastric tube. PHYSICAL EXAMINATION: GENERAL: This is an ill-appearing, middle-aged man, who is obtunded, in no distress. HEENT: Head atraumatic, normocephalic. The patient has a left orbital bruise. Sclerae are anicteric. Buccal mucosa dry. NECK: Supple. Trachea midline. CHEST: Chest rise is symmetrical. Breath sounds diminished to the bases. HEART: S1, S2. ABDOMEN: Soft. Bowel tones hypoactive. EXTREMITIES: With trace edema. SKIN: Multiple tattoos, bruises and scabs. ASSESSMENT: 1. Severe sepsis with shock. 2. Fungemia. 3. Acute encephalopathy, present on admission. Neurology on the case and so far CT of the brain revealed no intracranial hemorrhage or mass. 4. Pneumonia, possibly aspiration versus community acquired. 5. HIV positivity. 6. Hepatitis C virus. 7. Homelessness. 8. ETOH abuse. 9. Transaminitis, with liver ultrasound revealing cholelithiasis, without evidence of acute cholecystitis, and normal common bile duct. PLAN: The patient is doing poorly. We are going to start him on Cancidas. We are going to start him on acyclovir. Continue vancomycin, Zosyn and Levaquin. Follow neurology recommendations. Await for a CD4 count. Lumbar puncture and once lumbar puncture is done, send CSF fluid for cocci, cryptococcal antigen, fungal cultures, VDRL, AFB HSV, IgG, IgM. Dictated By: CLAIR MUNGUIA SAND MIXER OPERATOR for YAZMIN MCCALL/CHRISTIAN Conf#: [id number] DID#: [id number] MTDD
[2016-03-05] MEDS: VANCOMYCIN 500 MG in DEXTROSE 5% 100 ML IVPB SCH (14:38)
[2016-03-05 16:24] LABS: LYMPHOCYTE - % CD4 (HELPER) 1 % (30-61); LYMPHOCYTE - %CD8 (SUPPRESSOR) 54 % (12-42); LYMPHOCYTE - ABSOLUTE CD4 <20 cells/uL (490-1740); LYMPHOCYTE - ABSOLUTE CD8 485 cells/uL (180-1170); LYMPHOCYTE - CD4/CD8 RATIO 0.02 (0.86-5.00)
[2016-03-05 16:24] LABS: LYMPHOCYTE - % CD4 (HELPER) 1 % (30-61); LYMPHOCYTE - %CD8 (SUPPRESSOR) 56 % (12-42); LYMPHOCYTE - ABSOLUTE CD4 <20 cells/uL (490-1740); LYMPHOCYTE - ABSOLUTE CD8 729 cells/uL (180-1170); LYMPHOCYTE - CD4/CD8 RATIO 0.02 (0.86-5.00)
--- NOTE | 2016-03-05 16:32 | CONS ---
Date/Time of Note Date/Time of Note DATE: 03/05/16 TIME: 16:25 Assessment/Plan Assessment/Plan Chief Complaint/Hosp Course PEA Problems: Additional Assessment/Plan The patient admitted with encephalopathy, history of alcohol intoxication. Examination showed unresponsive male, intubated, absent corneal and gag and fixed and dilated pupils bilaterally. No response to noxious stimuli. EEG is consistent with brain . PLAN: 1. Apnea test to confirm absent brain stem findings 2. Discussed with Dr Pollack Consultation Date/Type/Reason Admit Date/Time Feb 29, 2016 at 12:20 Initial Consult Date 03/04/16 Type of Consultation: neurology Referring Provider: GARTH POLLACK MD, [facility] 24 HR Interval Summary Free Text/Dictation Clinically unchanged. Unresponsive. EEG showed no discernible activity consistent with brain . Exam/Review of Systems Vital Signs Vitals Vital Signs Date Time Temp Pulse Resp B/P Pulse Ox O2 Delivery O2 Flow Rate FiO2 03/05/16 15:38 87 20 100 60 03/05/16 13:00 119/79 03/05/16 12:00 97.5 03/05/16 04:00 Mechanical Ventilator 03/04/16 08:43 2.0 Intake and Output 03/04/16 03/04/16 03/05/16 15:00 23:00 07:00 Intake Total 681.25 ml 2320 ml Output Total 375 ml 1525 ml Balance 306.25 ml 795 ml Exam Constitutional: other (unresponsive) Neurological: other (unresponsive, absent corneal and gag reflexes, pupils fixed and dilated, no withdrawl to noxious stimuli) Results Result Diagram: 03/05/16 0430 03/05/16 0430 Results 24 hrs Laboratory Tests Test 03/04/16 21:48 03/04/16 22:00 03/05/16 04:30 03/05/16 07:00 Arterial Blood HCO3 20.5 L 23.1 Arterial Blood Base Excess -7.0 L -2.2 Arterial Blood Oxygen Saturation 94.1 L 98.2 H Chavo Test N/A N/A Arterial Blood Gas Puncture Site A-Line A-Line Arterial Blood Carboxyhemoglobin 0.3 0.3 Arterial Blood Date Drawn 03/04/2016 10:05:20 PM 03/05/2016 8:17:44 AM Arterial Blood Methemoglobin 0.1 0.2 Arterial Blood pCO2 (Temp correct) 48.4 H 41.5 Arterial Blood pH (Temp corrected) 7.244 *L 7.363 Arterial Blood pO2 (Temp corrected) 82.4 130.2 H Blood Gas A-a O2 Differential 582.2 H 324.3 H Blood Gas Actual Respiration Rate 20 20 Blood Gas Critical Value Read Back Nanda WALKER RN Blood Gas Low PEEP Setting 5.0 5.0 Blood Gas Modality VENT - AC VENT - AC Blood Gas Notified Time 03/04/2016 10:20:54 PM 03/05/2016 8:34:52 AM Blood Gas Notified Whom MH TM Blood Gas Respiration Rate 20.0 20.0 Blood Gas Specimen Source Blood arterial Blood arterial Blood Gas Temperature 37.0 37.0 Blood Gas Tidal Volume 500.0 500.0 FiO2 100.0 70.0 Oxyhemoglobin Percent 93.7 97.7 Total Hemoglobin 14.0 12.7 Alanine Aminotransferase (ALT/SGPT) 113 H Albumin 2.1 L Albumin/Globulin Ratio 0.56 Alkaline Phosphatase 590 H Anion Gap 18 H 15 Aspartate Amino Transf (AST/SGOT) 133 H Band Neutrophils % 34.0 H 22.0 H Blood Morphology Comment Blood Urea Nitrogen 43 #H 47 H Calcium Level 9.5 9.4 Carbon Dioxide Level 24 25 Chloride Level 126 H 127 H Creatinine 1.77 H 1.54 H Direct Bilirubin 1.60 H Eosinophils # 0.1 Eosinophils % 1.0 Globulin 3.70 H Glucose Level 142 158 Hematocrit 38.7 L 35.9 L Hemoglobin 13.1 L 12.5 L Indirect Bilirubin 0.8 Lymphocytes # 0.9 1.5 Lymphocytes % 18.0 28.0 Magnesium Level 3.2 H 2.9 H Mean Corpuscular Hemoglobin 31.9 32.7 Mean Corpuscular Hemoglobin Concent 33.7 34.8 Mean Corpuscular Volume 94.7 93.8 Mean Platelet Volume 8.1 8.3 Metamyelocytes # 0.2 0.2 Metamyelocytes % 3.0 H 3.0 H Monocytes # 1.5 H 0.6 Monocytes % 29.0 H 12.0 H Neutrophils # 0.8 L 1.6 Neutrophils % 15.0 L 30.0 L Platelet Count 61 #L 44 #L Platelet Estimate PLT APPEAR DECREASED PLT APPEAR DECREASED Potassium Level 3.5 4.0 Red Blood Count 4.09 L 3.83 L Red Cell Distribution Width 14.8 H 14.5 Sodium Level 164 *H 163 *H Total Bilirubin 2.4 H Total Protein 5.8 L White Blood Count 5.1 # 5.3 Basophils # Basophils % Differential Comment MANUAL DIFF Large Platelets FEW Myelocytes # 0.2 Myelocytes % 3.0 H Nucleated Red Blood Cells # Nucleated Red Blood Cells % Phosphorus Level 3.3 Promyelocytes # 0.1 Promyelocytes % 2.0 H Toxic Granulation 1+ Medications Medications Current Medications Ondansetron HCl (Zofran Inj) 4 mg Q6H PRN IV NAUSEA AND/OR VOMITING; Start at 13:00 Acetaminophen (Tylenol Tab) 650 mg Q6H PRN PO PAIN LEVEL 1-3 OR FEVER; Start at 13:00 Acetaminophen (Tylenol Supp) 650 mg Q6H PRN [place] PAIN LEVEL 1-3 OR FEVER; Start 02/29/16 at 13:00 Acetaminophen/ Hydrocodone Bitart ([place] (5/325)) 1 tab Q6H PRN PO MODERATE PAIN LEVEL 4-6; Start 02/29/16 at 13:00 Acetaminophen/ Hydrocodone Bitart ([place] (5/325)) 2 tab Q6H PRN PO SEVERE PAIN LEVEL 7-10; Start 02/29/16 at 13:00 Morphine Sulfate (morphine) 2 mg Q4H PRN IV SEVERE PAIN LEVEL 7-10 Last administered on 03/01/16 06:13; Admin Dose 2 MG; Start 02/29/16 at 13:00 Docusate Sodium (Colace) 100 mg Q12H PRN PO CONSTIPATION; Start 02/29/16 at 13: 00 Magnesium Hydroxide (Milk Of Mag) 30 ml DAILY PRN PO CONSTIPATION; Start at 13:00 Bisacodyl (Dulcolax Supp) 10 mg DAILY PRN [place] CONSTIPATION; Start 02/29/16 at 13 :00 Pantoprazole (Protonix Iv) 40 mg DAILY@06 IV Last administered on 03/05/16 05: 19; Admin Dose 40 MG; Start 03/01/16 at 06:00 Chlordiazepoxide (Librium) 25 mg TID PO Last administered on 03/05/16 13:08; Admin Dose 25 MG; Start 02/29/16 at 14:00 Hydralazine HCl (Apresoline) 10 mg Q4H PRN IV sbp>160 Last administered on 03/03 01:31; Admin Dose 10 MG; Start 02/29/16 at 14:00 Diphenhydramine HCl (Benadryl) 25 mg Q6H PRN IV ALLERGIC REACTION Last administered on 03/01/16 06:57; Admin Dose 25 MG; Start 02/29/16 at 17:00 Neomycin/ Polymyxin/ Bacitracin 1 applic 1 applic BID TOP Last administered on 03/04/16 21:00; Admin Dose 1 APPLIC; Start 03/02/16 at 21:00 Piperacillin Sod/ Tazobactam Sod 100 ml @ 200 mls/hr Q8 IVPB Last administered on 03/05/16 14:38; Admin Dose 200 MLS/HR; Start 03/04/16 at 14:00 Levofloxacin/ Dextrose 100 ml @ 100 mls/hr Q24H IVPB Last administered on 03/05 12:00; Admin Dose 100 MLS/HR; Start 03/04/16 at 12:00 Norepinephrine 16 mg/Dextrose 500 ml @ 0 mls/hr TITRATE IV ; Start 03/05/16 at 07:00 Phenylephrine HCl 40 mg/Dextrose 500 ml @ 0 mls/hr TITRATE IV ; Start 03/05/16 at 07:00 Dextrose 1,000 ml @ 100 mls/hr Q10H IV Last administered on 03/05/16 00:18; Admin Dose 100 MLS/HR; Start 03/04/16 at 17:00 Vasopressin 60 unit/Dextrose 60 ml @ 0 mls/hr Q12H IV ; Start 03/04/16 at 22:00 Dopamine HCl 800 mg/Dextrose 250 ml @ 2.43 mls/hr TITRATE IV ; Start 03/04/16 at 22:00 Vancomycin HCl/ Dextrose (Vancocin/D5W) 100 ml @ 100 mls/hr Q12H IVPB Last administered on 03/05/16 14:38; Admin Dose 100 MLS/HR; Start 03/05/16 at 15:00 Miscellaneous Information (*Rx Drug Level Order Reminder*) 1 ONCE ONCE XX ; Start 03/06/16 at 02:00; Stop 03/06/16 at 02:01 ALLI BETANCOURT MD Mar 05, 2016 16:32
[2016-03-05 17:09] LABS: Allen Test ACCEPTAB; Arterial Base Excess -2.7 mmol/L (-3.0-3); Arterial COHb 0.3 % (0.0-3.0); Arterial Fraction of Oxyhgb 97.3 % (93.0-99.0); Arterial HCO3 22.2 mmol/L (22.0-26.0); Arterial MetHb 0.1 % (0.0-1.5); Arterial Total Hemglobin 13.2 g/dl (12.0-18.0); MODE VENT - AC
--- NOTE | 2016-03-05 18:39 | SP ---
DATE OF PROCEDURE: 03/05/2016 ELECTROENCEPHALOGRAM HISTORY: This is a 55-year-old male who was admitted after found down with cardiorespiratory arrest . EEG is to rule out encephalopathy. CURRENT MEDICATIONS: Keppra. PROCEDURE: Utilizing a 16-channel EEG machine, cap scalp electrodes were applied in accordance with the 10-20 International system. [id number] and [id number] montages were displayed. Electric al impedances were measured and reported. Full ECS protocol was followed. DESCRIPTION: A clear dominant rhythm could not be identified by decreasing the sensitivity. Electr ical artifact was noted throughout the tracing. There was no epileptiform activity noted. INTERPRETATION: This is an abnormal EEG because of absence of cerebral activity consistent with bra in . Please correlate these findings with the patient's clinical picture. Dictated By: ALLI GANN/CHRISTIAN Conf#: [id number] DID#: [id number]
[2016-03-05 20:10] LABS: Arterial Base Excess -3.7 mmol/L (-3.0-3); Arterial COHb 0.3 % (0.0-3.0); Arterial Fraction of Oxyhgb 98.7 % (93.0-99.0); Arterial HCO3 22.7 mmol/L (22.0-26.0); Arterial MetHb 0.2 % (0.0-1.5); Arterial Total Hemglobin 14.3 g/dl (12.0-18.0); MODE VENT - AC
--- NOTE | 2016-03-05 21:20 | CONS ---
Date/Time of Note Date/Time of Note DATE: 03/05/16 TIME: 21:11 Assessment/Plan Assessment/Plan Chief Complaint/Hosp Course Assessment: Status post cardiac arrest - unclear etiology, PEA was initial rhythm, possibly due to septic shock Severe sepsis with septic shock Fungemia HIV Acute encephalopathy on presentation Probable brain Recommendations: -continue pressors -await apnea test Problems: Consultation Date/Type/Reason Admit Date/Time Feb 29, 2016 at 12:20 Type of Consultation: Cardiology Reason for Consultation cardiac arrest Referring Provider: RUBA INCHOLSON of Present Illness The patient is a 55 year-old homeless male who was brought into the emergency department with altered mental status and suspected alcohol withdrawal. He was subsequently found to have septic shock, fungemia, and HIV. During the hospitalization, he developed cardiac arrest with the initial rhythm noted to be PEA. There was prolonged CPR of 20 minutes before ROSC. Currently, he is suspected to have brain and is awaiting confirmation by apnea test. Unable to obtain, patient intubated and unresponsive. Past Medical History Unable to obtain Past Surgical History Unable to obtain Family History Significant Family History: other (unable to obtain) Social History Unable to obtain Alcohol Use: heavy Exam/Review of Systems Vital Signs Vitals Vital Signs Date Time Temp Pulse Resp B/P Pulse Ox O2 Delivery O2 Flow Rate FiO2 03/05/16 20:15 102 20 112/63 03/05/16 20:00 97.3 100 Mechanical Ventilator 03/05/16 19:51 100 03/04/16 08:43 2.0 Intake and Output 03/04/16 03/04/16 03/05/16 15:00 23:00 07:00 Intake Total 681.25 ml 2320 ml Output Total 375 ml 1525 ml Balance 306.25 ml 795 ml Exam Constitutional: No alert Psych: other (unresponsive) Head: normocephalic Respiratory: clear to auscultation Cardiovascular: regular rate and rhythm Gastrointestinal: soft Musculoskeletal: nl extremities to inspection Extremities: edema Neurological: unresponsive, No nl mental status Skin: other (numerous tattoos) Results Result Diagram: 03/05/16 0430 03/05/16 0430 Results 24 hrs Laboratory Tests Test 03/04/16 21:48 03/04/16 22:00 03/05/16 04:30 03/05/16 07:00 Arterial Blood HCO3 20.5 L 23.1 Arterial Blood Base Excess -7.0 L -2.2 Arterial Blood Oxygen Saturation 94.1 L 98.2 H Chvao Test N/A N/A Arterial Blood Gas Puncture Site A-Line A-Line Arterial Blood Carboxyhemoglobin 0.3 0.3 Arterial Blood Date Drawn 03/04/2016 10:05:20 PM 03/05/2016 8:17:44 AM Arterial Blood Methemoglobin 0.1 0.2 Arterial Blood pCO2 (Temp correct) 48.4 H 41.5 Arterial Blood pH (Temp corrected) 7.244 *L 7.363 Arterial Blood pO2 (Temp corrected) 82.4 130.2 H Blood Gas A-a O2 Differential 582.2 H 324.3 H Blood Gas Actual Respiration Rate 20 20 Blood Gas Critical Value Read Back Nanda WALKER RN Blood Gas Low PEEP Setting 5.0 5.0 Blood Gas Modality VENT - AC VENT - AC Blood Gas Notified Time 03/04/2016 10:20:54 PM 03/05/2016 8:34:52 AM Blood Gas Notified Whom TM Blood Gas Respiration Rate 20.0 20.0 Blood Gas Specimen Source Blood arterial Blood arterial Blood Gas Temperature 37.0 37.0 Blood Gas Tidal Volume 500.0 500.0 FiO2 100.0 70.0 Oxyhemoglobin Percent 93.7 97.7 Total Hemoglobin 14.0 12.7 Alanine Aminotransferase (ALT/SGPT) 113 H Albumin 2.1 L Albumin/Globulin Ratio 0.56 Alkaline Phosphatase 590 H Anion Gap 18 H 15 Aspartate Amino Transf (AST/SGOT) 133 H Band Neutrophils % 34.0 H 22.0 H Blood Morphology Comment Blood Urea Nitrogen 43 #H 47 H Calcium Level 9.5 9.4 Carbon Dioxide Level 24 25 Chloride Level 126 H 127 H Creatinine 1.77 H 1.54 H Direct Bilirubin 1.60 H Eosinophils # 0.1 Eosinophils % 1.0 Globulin 3.70 H Glucose Level 142 158 Hematocrit 38.7 L 35.9 L Hemoglobin 13.1 L 12.5 L Indirect Bilirubin 0.8 Lymphocytes # 0.9 1.5 Lymphocytes % 18.0 28.0 Magnesium Level 3.2 H 2.9 H Mean Corpuscular Hemoglobin 31.9 32.7 Mean Corpuscular Hemoglobin Concent 33.7 34.8 Mean Corpuscular Volume 94.7 93.8 Mean Platelet Volume 8.1 8.3 Metamyelocytes # 0.2 0.2 Metamyelocytes % 3.0 H 3.0 H Monocytes # 1.5 H 0.6 Monocytes % 29.0 H 12.0 H Neutrophils # 0.8 L 1.6 Neutrophils % 15.0 L 30.0 L Platelet Count 61 #L 44 #L Platelet Estimate PLT APPEAR DECREASED PLT APPEAR DECREASED Potassium Level 3.5 4.0 Red Blood Count 4.09 L 3.83 L Red Cell Distribution Width 14.8 H 14.5 Sodium Level 164 *H 163 *H Total Bilirubin 2.4 H Total Protein 5.8 L White Blood Count 5.1 # 5.3 Basophils # Basophils % Differential Comment MANUAL DIFF Large Platelets FEW Myelocytes # 0.2 Myelocytes % 3.0 H Nucleated Red Blood Cells # Nucleated Red Blood Cells % Phosphorus Level 3.3 Promyelocytes # 0.1 Promyelocytes % 2.0 H Toxic Granulation 1+ Test 03/05/16 16:44 03/05/16 19:59 Arterial Blood HCO3 22.2 22.7 Arterial Blood Base Excess -2.7 -3.7 L Arterial Blood Oxygen Saturation 97.7 99.2 H Chavo Test ACCEPTAB N/A Arterial Blood Gas Puncture Site Left Radial A-Line Arterial Blood Carboxyhemoglobin 0.3 0.3 Arterial Blood Date Drawn 03/05/2016 5:00:04 PM 03/05/2016 8:02:43 PM Arterial Blood Methemoglobin 0.1 0.2 Arterial Blood pCO2 (Temp correct) 39.1 46.2 H Arterial Blood pH (Temp corrected) 7.373 7.309 L Arterial Blood pO2 (Temp corrected) 107.8 H 274.8 H Blood Gas A-a O2 Differential 277.0 H 392.0 H Blood Gas Actual Respiration Rate 20 20 Blood Gas Low PEEP Setting 5.0 5.0 Blood Gas Modality VENT - AC VENT - AC Blood Gas Notified Time 03/05/2016 5:08:58 PM 03/05/2016 8:10:18 PM Blood Gas Notified Whom CW MG Blood Gas Respiration Rate 20.0 20.0 Blood Gas Specimen Source Blood arterial Blood arterial Blood Gas Temperature 37.0 37.0 Blood Gas Tidal Volume 500.0 500.0 FiO2 60.0 100.0 Oxyhemoglobin Percent 97.3 98.7 Total Hemoglobin 13.2 14.3 Medications Medications Current Medications Ondansetron HCl (Zofran Inj) 4 mg Q6H PRN IV NAUSEA AND/OR VOMITING; Start at 13:00 Acetaminophen (Tylenol Tab) 650 mg Q6H PRN PO PAIN LEVEL 1-3 OR FEVER; Start at 13:00 Acetaminophen (Tylenol Supp) 650 mg Q6H PRN [place] PAIN LEVEL 1-3 OR FEVER; Start 02/29/16 at 13:00 Acetaminophen/ Hydrocodone Bitart ([place] (5/325)) 1 tab Q6H PRN PO MODERATE PAIN LEVEL 4-6; Start 02/29/16 at 13:00 Acetaminophen/ Hydrocodone Bitart ([place] (5/325)) 2 tab Q6H PRN PO SEVERE PAIN LEVEL 7-10; Start 02/29/16 at 13:00 Morphine Sulfate (morphine) 2 mg Q4H PRN IV SEVERE PAIN LEVEL 7-10 Last administered on 03/01/16 06:13; Admin Dose 2 MG; Start 02/29/16 at 13:00 Docusate Sodium (Colace) 100 mg Q12H PRN PO CONSTIPATION; Start 02/29/16 at 13: 00 Magnesium Hydroxide (Milk Of Mag) 30 ml DAILY PRN PO CONSTIPATION; Start at 13:00 Bisacodyl (Dulcolax Supp) 10 mg DAILY PRN [place] CONSTIPATION; Start 02/29/16 at 13 :00 Pantoprazole (Protonix Iv) 40 mg DAILY@06 IV Last administered on 03/05/16 05: 19; Admin Dose 40 MG; Start 03/01/16 at 06:00 Chlordiazepoxide (Librium) 25 mg TID PO Last administered on 03/05/16 20:58; Admin Dose 25 MG; Start 02/29/16 at 14:00 Hydralazine HCl (Apresoline) 10 mg Q4H PRN IV sbp>160 Last administered on 03/03 01:31; Admin Dose 10 MG; Start 02/29/16 at 14:00 Diphenhydramine HCl (Benadryl) 25 mg Q6H PRN IV ALLERGIC REACTION Last administered on 03/01/16 06:57; Admin Dose 25 MG; Start 02/29/16 at 17:00 Neomycin/ Polymyxin/ Bacitracin 1 applic 1 applic BID TOP Last administered on 03/05/16 20:58; Admin Dose 1 APPLIC; Start 03/02/16 at 21:00 Piperacillin Sod/ Tazobactam Sod 100 ml @ 200 mls/hr Q8 IVPB Last administered on 03/05/16 14:38; Admin Dose 200 MLS/HR; Start 03/04/16 at 14:00 Levofloxacin/ Dextrose 100 ml @ 100 mls/hr Q24H IVPB Last administered on 03/05 12:00; Admin Dose 100 MLS/HR; Start 03/04/16 at 12:00 Norepinephrine 16 mg/Dextrose 500 ml @ 0 mls/hr TITRATE IV Last administered on 03/05/16 18:00; Admin Dose 37.5 MLS/HR; Start 03/05/16 at 07:00 Phenylephrine HCl 40 mg/Dextrose 500 ml @ 0 mls/hr TITRATE IV ; Start 03/05/16 at 07:00 Dextrose 1,000 ml @ 100 mls/hr Q10H IV Last administered on 03/05/16 19:28; Admin Dose 100 MLS/HR; Start 03/04/16 at 17:00 Vasopressin 60 unit/Dextrose 60 ml @ 0 mls/hr Q12H IV ; Start 03/04/16 at 22:00 Dopamine HCl 800 mg/Dextrose 250 ml @ 2.43 mls/hr TITRATE IV ; Start 03/04/16 at 22:00 Vancomycin HCl/ Dextrose (Vancocin/D5W) 100 ml @ 100 mls/hr Q12H IVPB Last administered on 03/05/16 14:38; Admin Dose 100 MLS/HR; Start 03/05/16 at 15:00 Miscellaneous Information 1 ONCE ONCE XX ; Start 03/06/16 at 02:00; Stop at 02:01 Caspofungin 70 mg/ Sodium Chloride 250 ml @ 250 mls/hr ONCE ONCE IV Last administered on 03/05/16 21:02; Admin Dose 250 MLS/HR; Start 03/05/16 at 22:00 ; Stop 03/05/16 at 22:59 Caspofungin 35 mg/ Sodium Chloride 250 ml @ 250 mls/hr Q24H IV ; Start at 22:00 Acyclovir/Dextrose (Zovirax/D5W) 100 ml @ 100 mls/hr Q8 IVPB ; Start 03/05/16 at 23:00 SHERRIE DOCKERY MD Mar 05, 2016 21:20
[2016-03-05] MEDS ORDERED: CASPOFUNGIN 70 MG in NS 250 ML IV ONE (22:00)
[2016-03-05] MEDS: ACYCLOVIR IVPB SCH (23:17)
[2016-03-05] MEDS: DEXTROSE 5% IVPB SCH (23:17)
[2016-03-06] VITALS (106 sets, daily range): BP systolic 67–162; BP diastolic 37–94; PULSE 89–125; RESP 20–23
[2016-03-06] MEDS: VANCOMYCIN 500 MG in DEXTROSE 5% 100 ML IVPB SCH ×2 (04:41→15:38)
[2016-03-06] MEDS: PANTOPRAZOLE 40 MG INJ IV SCH (05:55)
[2016-03-06] MEDS: PIPER-TAZO 3.375 GM IV (PMX) 100 ML IVPB SCH ×3 (05:55→21:32)
[2016-03-06 05:56] LABS: BASOPHILS % 0.2 % (0.0-2.0); EOSINOPHILS # 0.4 10^3/ul (0.0-0.5); EOSINOPHILS % 5.2 % (0.0-7.0); HEMATOCRIT 35.1 % (42.0-52.0); HEMOGLOBIN 12.3 g/dl (14.0-18.0); LYMPHOCYTES # 0.7 10^3/ul (0.8-2.9); LYMPHOCYTES % 10.5 % (15.0-51.0); MEAN CORPUSCULAR HEMOGLOBIN 32.5 pg (29.0-33.0); MEAN CORPUSCULAR HGB CONC 34.9 g/dl (32.0-37.0); MEAN CORPUSCULAR VOLUME 93.1 fl (82.0-101.0); MEAN PLATELET VOLUME 10.6 fl (7.4-10.4); MONOCYTES % 0.3 % (0.0-11.0); NEUTROPHIL # 5.7 10^3/ul (1.6-7.5); NEUTROPHILS % 83.8 % (39.0-77.0); RED BLOOD COUNT 3.77 10^6/ul (4.70-6.10); RED CELL DISTRIBUTION WIDTH 14.5 % (11.5-14.5); UNCORRECTED WBC 6.9 10^3/ul (4.8-10.8); WHITE BLOOD COUNT 6.9 10^3/ul (4.8-10.8)
[2016-03-06 06:25] LABS: CONDITION 1; LH ANALYZER COMMENTS 1; SUSPECT 1
[2016-03-06 06:26] LABS: PLATELET COUNT 20 10^3/UL (140-440)
[2016-03-06 06:30] LABS: POTASSIUM 3.8 mmol/L (3.5-5.1)
[2016-03-06 06:33] LABS: CREATININE 1.83 mg/dl (0.61-1.24)
[2016-03-06 06:34] LABS: CALCIUM 9.2 mg/dl (8.4-10.2)
[2016-03-06] MEDS: ACYCLOVIR IVPB SCH ×2 (06:34→14:29)
[2016-03-06] MEDS: DEXTROSE 5% IVPB SCH ×2 (06:34→14:29)
--- NOTE | 2016-03-06 06:46 | PN ---
Date/Time of Note Date/Time of Note DATE: 03/06/16 TIME: 06:42 Assessment/Plan VTE Prophylaxis VTE Prophylaxis Intervention: contraindicated Lines/Catheters IV Catheter Type (from [facility]): A Line Urinary Cath still in place: Yes Reason Cath still needed: terminal illness/intractable pain Assessment/Plan Problems: (1) Hypernatremia Status: Acute Comment: We will try and correct this although is not going to change the underlying issue given the EEG findings. I do not believe the flat line EEG is due to this fluid electrolyte abnormality. As such given the totality of this may with the critical care staff later today for ultimate disposition. Please see the social work notes we have no ability to contact any family members, and the local authorities are unable to render further assistance (2) Chronic active hepatitis C Status: Chronic Comment: Noted blood and body fluid precautions (3) HIV disease Status: Chronic Comment: He has significantly low CD4 count and positive fungal cultures. This is undoubtedly what led to his arresting on March 04, 2016. Prognosis is obviously poor given the EEG findings (4) Fungal sepsis Status: Acute Comment: Noted he is actually on treatment (5) Acute kidney injury (nontraumatic) Status: Acute Comment: Noted we will follow this along the blue part of this is a hydrational (6) History of cardiac arrest Status: Acute Comment: He had multiple cardiac arrests on the . At this time he is a flat line EEG indicating brain . This matches a clinical picture. Decision about whether to retry for the apnea test today will be discussed with the pulmonary consults. If the apnea tests are abnormal then he will be considered appropriately evaluated and will look at terminal extubation Subjective 24 Hr Interval Summary Free Text/Dictation Please see EEG report and neurology consults Subjective hx not possible: pt non-verbal, pt critical status Exam/Review of Systems Vital Signs Vitals Vital Signs Date Time Temp Pulse Resp B/P Pulse Ox O2 Delivery O2 Flow Rate FiO2 03/06/16 06:15 109 20 103/60 98 03/06/16 06:00 Mechanical Ventilator 03/06/16 05:08 60 03/06/16 04:00 97.8 03/04/16 08:43 2.0 Intake and Output 03/05/16 03/05/16 03/06/16 15:00 23:00 07:00 Intake Total 200 ml 1972.85 ml 1677.25 ml Output Total 535 ml 440 ml 600 ml Balance -335 ml 1532.85 ml 1077.25 ml Exam Absolutely nonresponsive even to extremely noxious stimuli Constitutional: non-verbal Head: other (Ecchymosis on the left supra ocular area; bruising in the right perioral area) Eyes: other (Pupils fixed and dilated nonreactive) ENMT: intubated Neck: non-tender, supple Respiratory: clear to auscultation, normal air movement Cardiovascular: nl pulses, regular rate and rhythm Gastrointestinal: nl liver, spleen, non-tender, soft Results Result Diagram: 03/06/16 0430 03/06/16 0430 Results 24 hrs Laboratory Tests Test 03/05/16 07:00 03/05/16 16:44 03/05/16 19:59 03/06/16 02:17 Arterial Blood HCO3 23.1 22.2 22.7 Arterial Blood Base Excess -2.2 -2.7 -3.7 L Arterial Blood Oxygen Saturation 98.2 H 97.7 99.2 H Chavo Test N/A ACCEPTAB N/A Arterial Blood Gas Puncture Site A-Line Left Radial A-Line Arterial Blood Carboxyhemoglobin 0.3 0.3 0.3 Arterial Blood Date Drawn 03/05/2016 8:17:44 AM 03/05/2016 5:00:04 PM 03/05/2016 8:02:43 PM Arterial Blood Methemoglobin 0.2 0.1 0.2 Arterial Blood pCO2 (Temp correct) 41.5 39.1 46.2 H Arterial Blood pH (Temp corrected) 7.363 7.373 7.309 L Arterial Blood pO2 (Temp corrected) 130.2 H 107.8 H 274.8 H Blood Gas A-a O2 Differential 324.3 H 277.0 H 392.0 H Blood Gas Actual Respiration Rate 20 20 20 Blood Gas Low PEEP Setting 5.0 5.0 5.0 Blood Gas Modality VENT - AC VENT - AC VENT - AC Blood Gas Notified Time 03/05/2016 8:34:52 AM 03/05/2016 5:08:58 PM 03/05/2016 8:10:18 PM Blood Gas Notified Whom TM CW MG Blood Gas Respiration Rate 20.0 20.0 20.0 Blood Gas Specimen Source Blood arterial Blood arterial Blood arterial Blood Gas Temperature 37.0 37.0 37.0 Blood Gas Tidal Volume 500.0 500.0 500.0 FiO2 70.0 60.0 100.0 Oxyhemoglobin Percent 97.7 97.3 98.7 Total Hemoglobin 12.7 13.2 14.3 Vancomycin Level Trough 14.8 Test 03/06/16 04:30 Anion Gap 17 H Basophils # 0.0 Basophils % 0.2 Blood Morphology Comment Blood Urea Nitrogen 59 H Calcium Level 9.2 Carbon Dioxide Level 24 Chloride Level 117 H Creatinine 1.83 H Eosinophils # 0.4 Eosinophils % 5.2 Glucose Level 97 # Hematocrit 35.1 L Hemoglobin 12.3 L Lymphocytes # 0.7 L Lymphocytes % 10.5 L Mean Corpuscular Hemoglobin 32.5 Mean Corpuscular Hemoglobin Concent 34.9 Mean Corpuscular Volume 93.1 Mean Platelet Volume 10.6 #H Monocytes # 0.0 L Monocytes % 0.3 Neutrophils # 5.7 Neutrophils % 83.8 H Nucleated Red Blood Cells # 0.0 Nucleated Red Blood Cells % 0.0 Platelet Count 20 #*L Potassium Level 3.8 Red Blood Count 3.77 L Red Cell Distribution Width 14.5 Sodium Level 154 H White Blood Count 6.9 # Medications Medications Current Medications Ondansetron HCl (Zofran Inj) 4 mg Q6H PRN IV NAUSEA AND/OR VOMITING; Start at 13:00 Acetaminophen (Tylenol Tab) 650 mg Q6H PRN PO PAIN LEVEL 1-3 OR FEVER; Start at 13:00 Acetaminophen (Tylenol Supp) 650 mg Q6H PRN [place] PAIN LEVEL 1-3 OR FEVER; Start 02/29/16 at 13:00 Acetaminophen/ Hydrocodone Bitart ([place] (5/325)) 1 tab Q6H PRN PO MODERATE PAIN LEVEL 4-6; Start 02/29/16 at 13:00 Acetaminophen/ Hydrocodone Bitart ([place] (5/325)) 2 tab Q6H PRN PO SEVERE PAIN LEVEL 7-10; Start 02/29/16 at 13:00 Morphine Sulfate (morphine) 2 mg Q4H PRN IV SEVERE PAIN LEVEL 7-10 Last administered on 03/01/16t 06:13; Admin Dose 2 MG; Start 02/29/16 at 13:00 Docusate Sodium (Colace) 100 mg Q12H PRN PO CONSTIPATION; Start 02/29/16 at 13: 00 Magnesium Hydroxide (Milk Of Mag) 30 ml DAILY PRN PO CONSTIPATION; Start at 13:00 Bisacodyl (Dulcolax Supp) 10 mg DAILY PRN [place] CONSTIPATION; Start 02/29/16 at 13 :00 Pantoprazole (Protonix Iv) 40 mg DAILY@06 IV Last administered on 03/06/16 05: 55; Admin Dose 40 MG; Start 03/01/16 at 06:00 Chlordiazepoxide (Librium) 25 mg TID PO Last administered on 03/05/16 20:58; Admin Dose 25 MG; Start 02/29/16 at 14:00 Hydralazine HCl (Apresoline) 10 mg Q4H PRN IV sbp>160 Last administered on 03/03 01:31; Admin Dose 10 MG; Start 02/29/16 at 14:00 Diphenhydramine HCl (Benadryl) 25 mg Q6H PRN IV ALLERGIC REACTION Last administered on 03/01/16 06:57; Admin Dose 25 MG; Start 02/29/16 at 17:00 Neomycin/ Polymyxin/ Bacitracin 1 applic 1 applic BID TOP Last administered on 03/05/16 20:58; Admin Dose 1 APPLIC; Start 03/02/16 at 21:00 Piperacillin Sod/ Tazobactam Sod 100 ml @ 200 mls/hr Q8 IVPB Last administered on 03/06/16 05:55; Admin Dose 200 MLS/HR; Start 03/04/16 at 14:00 Levofloxacin/ Dextrose 100 ml @ 100 mls/hr Q24H IVPB Last administered on 03/05 12:00; Admin Dose 100 MLS/HR; Start 03/04/16 at 12:00 Norepinephrine 16 mg/Dextrose 500 ml @ 0 mls/hr TITRATE IV Last administered on 03/06/16 04:38; Admin Dose 56.25 MLS/HR; Start 03/05/16 at 07:00 Phenylephrine HCl 40 mg/Dextrose 500 ml @ 0 mls/hr TITRATE IV ; Start 03/05/16 at 07:00 Dextrose 1,000 ml @ 100 mls/hr Q10H IV Last administered on 03/05/16 19:28; Admin Dose 100 MLS/HR; Start 03/04/16 at 17:00 Vasopressin 60 unit/Dextrose 60 ml @ 0 mls/hr Q12H IV ; Start 03/04/16 at 22:00 Dopamine HCl 800 mg/Dextrose 250 ml @ 2.43 mls/hr TITRATE IV ; Start 03/04/16 at 22:00 Vancomycin HCl 500 mg/Dextrose 100 ml @ 100 mls/hr Q12H IVPB Last administered on 03/06/16 04:41; Admin Dose 100 MLS/HR; Start 03/05/16 at 15:00 Caspofungin 35 mg/ Sodium Chloride 250 ml @ 250 mls/hr Q24H IV ; Start at 22:00 Acyclovir/Dextrose (Zovirax/D5W) 100 ml @ 100 mls/hr Q8 IVPB Last administered on 03/06/16 06:34; Admin Dose 100 MLS/HR; Start 03/05/16 at 23:00 SANTOSH FUNG MD Mar 06, 2016 06:46
[2016-03-06] MEDS ORDERED: DEXTROSE 5% 1,000 ML IV SCH (07:00)
[2016-03-06] MEDS: DEXTROSE 5% 1,000 ML IV SCH ×2 (09:00→19:00)
[2016-03-06] MEDS: CHLORDIAZEPOXIDE 25 MG CAP PO SCH ×3 (09:00→20:22)
[2016-03-06] MEDS: NEOMYC/POLYMYX/BACIT 30 GM OINT TOP SCH ×2 (09:58→20:25)
[2016-03-06] MEDS: DEXTROSE 5%-0.225% NACL 1,000 ML IV SCH ×2 (09:58→18:20)
--- NOTE | 2016-03-06 10:00 | CONS ---
Date/Time of Note Date/Time of Note DATE: 03/06/16 TIME: 09:59 Assessment/Plan Assessment/Plan Chief Complaint/Hosp Course D PROGRESS NOTE TOTAL ABX DAY # 24H INTERVAL SUMMARY * Chart reviewed => patient s/p cardiopulmonary arrest w/concern anoxic brain injury/brain ? Pending clinical MD determination CXR 03/05/16: IMPRESSION: Pulmonary venous hypertension Increase in right perihilar and RLL patchy consolidations Mild left perihilar and LLL patchy consolidations PHYSICAL EXAMINATION: GENERAL: 55 yo M HEENT: Unremarkable NECK: Supple, trachea midline. CHEST: Equal chest rise bilaterally HEART: Pulse RRR ABDOMEN: Soft EXTREMITIES: Warm SKIN: See photos ID ASSESSMENT: 55 yo M admit with: 1. Severe sepsis with shock. 2. Fungemia. 3. Acute encephalopathy, present on admission. Neurology on the case and so far CT of the brain revealed no intracranial hemorrhage or mass. 4. Pneumonia, possibly aspiration versus community acquired. 5. HIV positivity. 6. Hepatitis C virus. 7. Homelessness. 8. ETOH abuse. 9. Transaminitis, with liver ultrasound revealing cholelithiasis, without evidence of acute cholecystitis, and normal common bile duct. (-)MRSA Nares INVASIVES: ABX ALLERGY: KNDA CURRENT ABX: TOTAL ABX DAY # ID RECOMMENDATIONS: 1. Poor prognosis s/p cardiopulmonary arrest w/concern severe anoxic brain injury/brain pending MD evaluation. . Problems: Consultation Date/Type/Reason Admit Date/Time Feb 29, 2016 at 12:20 Initial Consult Date 03/04/16 Type of Consultation: ID Referring Provider: RUBA NICHOLSON Exam/Review of Systems Vital Signs Vitals Vital Signs Date Time Temp Pulse Resp B/P Pulse Ox O2 Delivery O2 Flow Rate FiO2 03/06/16 09:00 118 20 109/75 99 Mechanical Ventilator 03/06/16 08:30 97.5 03/06/16 08:30 60 03/04/16 08:43 2.0 Intake and Output 03/05/16 03/05/16 03/06/16 15:00 23:00 07:00 Intake Total 200 ml 1972.85 ml 1774.75 ml Output Total 535 ml 440 ml 610 ml Balance -335 ml 1532.85 ml 1164.75 ml Results Result Diagram: 03/06/16 0430 03/06/16 0430 Results 24 hrs Laboratory Tests Test 03/05/16 16:44 03/05/16 19:59 03/06/16 02:17 03/06/16 04:30 Arterial Blood HCO3 22.2 22.7 Arterial Blood Base Excess -2.7 -3.7 L Arterial Blood Oxygen Saturation 97.7 99.2 H Chavo Test ACCEPTAB N/A Arterial Blood Gas Puncture Site Left Radial A-Line Arterial Blood Carboxyhemoglobin 0.3 0.3 Arterial Blood Date Drawn 03/05/2016 5:00:04 PM 03/05/2016 8:02:43 PM Arterial Blood Methemoglobin 0.1 0.2 Arterial Blood pCO2 (Temp correct) 39.1 46.2 H Arterial Blood pH (Temp corrected) 7.373 7.309 L Arterial Blood pO2 (Temp corrected) 107.8 H 274.8 H Blood Gas A-a O2 Differential 277.0 H 392.0 H Blood Gas Actual Respiration Rate 20 20 Blood Gas Low PEEP Setting 5.0 5.0 Blood Gas Modality VENT - AC VENT - AC Blood Gas Notified Time 03/05/2016 5:08:58 PM 03/05/2016 8:10:18 PM Blood Gas Notified Whom CW MG Blood Gas Respiration Rate 20.0 20.0 Blood Gas Specimen Source Blood arterial Blood arterial Blood Gas Temperature 37.0 37.0 Blood Gas Tidal Volume 500.0 500.0 FiO2 60.0 100.0 Oxyhemoglobin Percent 97.3 98.7 Total Hemoglobin 13.2 14.3 Vancomycin Level Trough 14.8 Anion Gap 17 H Basophils # 0.0 Basophils % 0.2 Blood Morphology Comment Blood Urea Nitrogen 59 H Calcium Level 9.2 Carbon Dioxide Level 24 Chloride Level 117 H Creatinine 1.83 H Eosinophils # 0.4 Eosinophils % 5.2 Glucose Level 97 # Hematocrit 35.1 L Hemoglobin 12.3 L Lymphocytes # 0.7 L Lymphocytes % 10.5 L Mean Corpuscular Hemoglobin 32.5 Mean Corpuscular Hemoglobin Concent 34.9 Mean Corpuscular Volume 93.1 Mean Platelet Volume 10.6 #H Monocytes # 0.0 L Monocytes % 0.3 Neutrophils # 5.7 Neutrophils % 83.8 H Nucleated Red Blood Cells # 0.0 Nucleated Red Blood Cells % 0.0 Platelet Count 20 #*L Potassium Level 3.8 Red Blood Count 3.77 L Red Cell Distribution Width 14.5 Sodium Level 154 H White Blood Count 6.9 # Medications Medications Current Medications Ondansetron HCl (Zofran Inj) 4 mg Q6H PRN IV NAUSEA AND/OR VOMITING; Start at 13:00 Acetaminophen (Tylenol Tab) 650 mg Q6H PRN PO PAIN LEVEL 1-3 OR FEVER; Start at 13:00 Acetaminophen (Tylenol Supp) 650 mg Q6H PRN [place] PAIN LEVEL 1-3 OR FEVER; Start 02/29/16 at 13:00 Acetaminophen/ Hydrocodone Bitart ([place] (5/325)) 1 tab Q6H PRN PO MODERATE PAIN LEVEL 4-6; Start 02/29/16 at 13:00 Acetaminophen/ Hydrocodone Bitart ([place] (5/325)) 2 tab Q6H PRN PO SEVERE PAIN LEVEL 7-10; Start 02/29/16 at 13:00 Morphine Sulfate (morphine) 2 mg Q4H PRN IV SEVERE PAIN LEVEL 7-10 Last administered on 03/01/16 06:13; Admin Dose 2 MG; Start 02/29/16 at 13:00 Docusate Sodium (Colace) 100 mg Q12H PRN PO CONSTIPATION; Start 02/29/16 at 13: 00 Magnesium Hydroxide (Milk Of Mag) 30 ml DAILY PRN PO CONSTIPATION; Start at 13:00 Bisacodyl (Dulcolax Supp) 10 mg DAILY PRN [place] CONSTIPATION; Start 02/29/16 at 13 :00 Pantoprazole (Protonix Iv) 40 mg DAILY@06 IV Last administered on 03/06/16 05: 55; Admin Dose 40 MG; Start 03/01/16 at 06:00 Chlordiazepoxide (Librium) 25 mg TID PO Last administered on 03/05/16 20:58; Admin Dose 25 MG; Start 02/29/16 at 14:00 Hydralazine HCl (Apresoline) 10 mg Q4H PRN IV sbp>160 Last administered on 03/03 01:31; Admin Dose 10 MG; Start 02/29/16 at 14:00 Diphenhydramine HCl (Benadryl) 25 mg Q6H PRN IV ALLERGIC REACTION Last administered on 03/01/16 06:57; Admin Dose 25 MG; Start 02/29/16 at 17:00 Neomycin/ Polymyxin/ Bacitracin 1 applic 1 applic BID TOP Last administered on 03/05/16 20:58; Admin Dose 1 APPLIC; Start 03/02/16 at 21:00 Piperacillin Sod/ Tazobactam Sod 100 ml @ 200 mls/hr Q8 IVPB Last administered on 03/06/16 05:55; Admin Dose 200 MLS/HR; Start 03/04/16 at 14:00 Levofloxacin/ Dextrose 100 ml @ 100 mls/hr Q24H IVPB Last administered on 03/05 12:00; Admin Dose 100 MLS/HR; Start 03/04/16 at 12:00 Norepinephrine 16 mg/Dextrose 500 ml @ 0 mls/hr TITRATE IV Last administered on 03/06/16 04:38; Admin Dose 56.25 MLS/HR; Start 03/05/16 at 07:00 Phenylephrine HCl 40 mg/Dextrose 500 ml @ 0 mls/hr TITRATE IV ; Start 03/05/16 at 07:00 Dextrose 1,000 ml @ 100 mls/hr Q10H IV Last administered on 03/05/16 19:28; Admin Dose 100 MLS/HR; Start 03/04/16 at 17:00 Vasopressin 60 unit/Dextrose 60 ml @ 0 mls/hr Q12H IV ; Start 03/04/16 at 22:00 Dopamine HCl 800 mg/Dextrose 250 ml @ 2.43 mls/hr TITRATE IV ; Start 03/04/16 at 22:00 Vancomycin HCl 500 mg/Dextrose 100 ml @ 100 mls/hr Q12H IVPB Last administered on 03/06/16 04:41; Admin Dose 100 MLS/HR; Start 03/05/16 at 15:00 Caspofungin 35 mg/ Sodium Chloride 250 ml @ 250 mls/hr Q24H IV ; Start at 22:00 Acyclovir 650 mg/ Dextrose 100 ml @ 100 mls/hr Q8 IVPB Last administered on 06:34; Admin Dose 100 MLS/HR; Start 03/05/16 at 23:00 Dextrose/Sodium Chloride (D5-1/4ns) 1,000 ml @ 250 mls/hr Q4H IV ; Start at 07:00 ANDREE BRADLEY NP Mar 06, 2016 10:00
[2016-03-06] MEDS: VASOPRESSIN 60 UNIT in DEXTROSE 5% 57 ML IV SCH ×2 (10:02→20:25)
[2016-03-06] MEDS: LEVOFLOXACIN 500MG/D5W (PMX) 100 ML IVPB SCH (12:30)
--- NOTE | 2016-03-06 16:08 | CONS ---
Date/Time of Note Date/Time of Note DATE: 03/06/16 TIME: 16:07 Assessment/Plan Assessment/Plan Chief Complaint/Hosp Course Assessment: Status post cardiac arrest - unclear etiology, PEA was initial rhythm, possibly due to septic shock Severe sepsis with septic shock Fungemia HIV Acute encephalopathy on presentation Probable brain Recommendations: -continue pressors -await apnea test Problems: Consultation Date/Type/Reason Admit Date/Time Feb 29, 2016 at 12:20 Initial Consult Date 03/04/16 Type of Consultation: Cardiology 24 HR Interval Summary Free Text/Dictation No significant clinical changes. Detailed Summary Additional Comments Unable to obtain review of systems due to patient's mental status. Exam/Review of Systems Vital Signs Vitals Vital Signs Date Time Temp Pulse Resp B/P Pulse Ox O2 Delivery O2 Flow Rate FiO2 03/06/16 15:30 97 20 90/51 100 03/06/16 15:00 Mechanical Ventilator 03/06/16 12:00 97.0 03/06/16 08:30 60 03/04/16 08:43 2.0 Intake and Output 03/05/16 03/05/16 03/06/16 15:00 23:00 07:00 Intake Total 200 ml 1972.85 ml 1774.75 ml Output Total 535 ml 440 ml 610 ml Balance -335 ml 1532.85 ml 1164.75 ml Exam Constitutional: No alert Psych: other (unresponsive) Head: normocephalic Respiratory: clear to auscultation Cardiovascular: regular rate and rhythm Gastrointestinal: soft Musculoskeletal: nl extremities to inspection Extremities: edema Neurological: unresponsive, No nl mental status Skin: other (numerous tattoos) Results Result Diagram: 03/06/16 0430 03/06/16 0430 Results 24 hrs Laboratory Tests Test 03/05/16 16:44 03/05/16 19:59 03/06/16 02:17 03/06/16 04:30 Arterial Blood HCO3 22.2 22.7 Arterial Blood Base Excess -2.7 -3.7 L Arterial Blood Oxygen Saturation 97.7 99.2 H Chavo Test ACCEPTAB N/A Arterial Blood Gas Puncture Site Left Radial A-Line Arterial Blood Carboxyhemoglobin 0.3 0.3 Arterial Blood Date Drawn 03/05/2016 5:00:04 PM 03/05/2016 8:02:43 PM Arterial Blood Methemoglobin 0.1 0.2 Arterial Blood pCO2 (Temp correct) 39.1 46.2 H Arterial Blood pH (Temp corrected) 7.373 7.309 L Arterial Blood pO2 (Temp corrected) 107.8 H 274.8 H Blood Gas A-a O2 Differential 277.0 H 392.0 H Blood Gas Actual Respiration Rate 20 20 Blood Gas Low PEEP Setting 5.0 5.0 Blood Gas Modality VENT - AC VENT - AC Blood Gas Notified Time 03/05/2016 5:08:58 PM 03/05/2016 8:10:18 PM Blood Gas Notified Whom CW MG Blood Gas Respiration Rate 20.0 20.0 Blood Gas Specimen Source Blood arterial Blood arterial Blood Gas Temperature 37.0 37.0 Blood Gas Tidal Volume 500.0 500.0 FiO2 60.0 100.0 Oxyhemoglobin Percent 97.3 98.7 Total Hemoglobin 13.2 14.3 Vancomycin Level Trough 14.8 Anion Gap 17 H Basophils # 0.0 Basophils % 0.2 Blood Morphology Comment Blood Urea Nitrogen 59 H Calcium Level 9.2 Carbon Dioxide Level 24 Chloride Level 117 H Creatinine 1.83 H Eosinophils # 0.4 Eosinophils % 5.2 Glucose Level 97 # Hematocrit 35.1 L Hemoglobin 12.3 L Lymphocytes # 0.7 L Lymphocytes % 10.5 L Mean Corpuscular Hemoglobin 32.5 Mean Corpuscular Hemoglobin Concent 34.9 Mean Corpuscular Volume 93.1 Mean Platelet Volume 10.6 #H Monocytes # 0.0 L Monocytes % 0.3 Neutrophils # 5.7 Neutrophils % 83.8 H Nucleated Red Blood Cells # 0.0 Nucleated Red Blood Cells % 0.0 Platelet Count 20 #*L Potassium Level 3.8 Red Blood Count 3.77 L Red Cell Distribution Width 14.5 Sodium Level 154 H White Blood Count 6.9 # Test 03/06/16 12:24 Lab Scanned Report REFERENCE LAB Medications Medications Current Medications Ondansetron HCl (Zofran Inj) 4 mg Q6H PRN IV NAUSEA AND/OR VOMITING; Start at 13:00 Acetaminophen (Tylenol Tab) 650 mg Q6H PRN PO PAIN LEVEL 1-3 OR FEVER; Start at 13:00 Acetaminophen (Tylenol Supp) 650 mg Q6H PRN [place] PAIN LEVEL 1-3 OR FEVER; Start 02/29/16 at 13:00 Acetaminophen/ Hydrocodone Bitart ([place] (5/325)) 1 tab Q6H PRN PO MODERATE PAIN LEVEL 4-6; Start 02/29/16 at 13:00 Acetaminophen/ Hydrocodone Bitart ([place] (5/325)) 2 tab Q6H PRN PO SEVERE PAIN LEVEL 7-10; Start 02/29/16 at 13:00 Morphine Sulfate (morphine) 2 mg Q4H PRN IV SEVERE PAIN LEVEL 7-10 Last administered on 03/01/16 06:13; Admin Dose 2 MG; Start 02/29/16 at 13:00 Docusate Sodium (Colace) 100 mg Q12H PRN PO CONSTIPATION; Start 02/29/16 at 13: 00 Magnesium Hydroxide (Milk Of Mag) 30 ml DAILY PRN PO CONSTIPATION; Start at 13:00 Bisacodyl (Dulcolax Supp) 10 mg DAILY PRN [place] CONSTIPATION; Start 02/29/16 at 13 :00 Pantoprazole (Protonix Iv) 40 mg DAILY@06 IV Last administered on 03/06/16 05: 55; Admin Dose 40 MG; Start 03/01/16 at 06:00 Chlordiazepoxide (Librium) 25 mg TID PO Last administered on 03/05/16 20:58; Admin Dose 25 MG; Start 02/29/16 at 14:00 Hydralazine HCl (Apresoline) 10 mg Q4H PRN IV sbp>160 Last administered on 03/03 01:31; Admin Dose 10 MG; Start 02/29/16 at 14:00 Diphenhydramine HCl (Benadryl) 25 mg Q6H PRN IV ALLERGIC REACTION Last administered on 03/01/16 06:57; Admin Dose 25 MG; Start 02/29/16 at 17:00 Neomycin/ Polymyxin/ Bacitracin 1 applic 1 applic BID TOP Last administered on 03/06/16 09:58; Admin Dose 1 APPLIC; Start 03/02/16 at 21:00 Piperacillin Sod/ Tazobactam Sod 100 ml @ 200 mls/hr Q8 IVPB Last administered on 03/06/16 13:32; Admin Dose 200 MLS/HR; Start 03/04/16 at 14:00 Levofloxacin/ Dextrose 100 ml @ 100 mls/hr Q24H IVPB Last administered on 03/06 12:30; Admin Dose 100 MLS/HR; Start 03/04/16 at 12:00 Norepinephrine 16 mg/Dextrose 500 ml @ 0 mls/hr TITRATE IV Last administered on 03/06/16 15:49; Admin Dose 41.25 MLS/HR; Start 03/05/16 at 07:00 Phenylephrine HCl 40 mg/Dextrose 500 ml @ 0 mls/hr TITRATE IV ; Start 03/05/16 at 07:00 Dextrose 1,000 ml @ 100 mls/hr Q10H IV Last administered on 03/05/16 19:28; Admin Dose 100 MLS/HR; Start 03/04/16 at 17:00 Vasopressin 60 unit/Dextrose 60 ml @ 0 mls/hr Q12H IV Last administered on 03/06 10:02; Admin Dose 2.4 MLS/HR; Start 03/04/16 at 22:00 Dopamine HCl 800 mg/Dextrose 250 ml @ 2.43 mls/hr TITRATE IV ; Start 03/04/16 at 22:00 Vancomycin HCl 500 mg/Dextrose 100 ml @ 100 mls/hr Q12H IVPB Last administered on 03/06/16 15:38; Admin Dose 100 MLS/HR; Start 03/05/16 at 15:00 Caspofungin 35 mg/ Sodium Chloride 250 ml @ 250 mls/hr Q24H IV ; Start at 22:00 Acyclovir 650 mg/ Dextrose 100 ml @ 100 mls/hr Q8 IVPB Last administered on 14:29; Admin Dose 100 MLS/HR; Start 03/05/16 at 23:00; Stop 03/06/16 at 19:00 Dextrose/Sodium Chloride 1,000 ml @ 250 mls/hr Q4H IV Last administered on 09:58; Admin Dose 250 MLS/HR; Start 03/06/16 at 07:00 Acyclovir/Dextrose (Zovirax/D5W) 100 ml @ 100 mls/hr Q12H IVPB ; Start at 02:00 SHERRIE DOCKERY MD Mar 06, 2016 16:08
--- NOTE | 2016-03-06 16:38 | CONS ---
Date/Time of Note Date/Time of Note DATE: 03/06/16 TIME: 16:34 Consult Date/Type/Reason Admit Date/Time Feb 29, 2016 at 12:20 Initial Consult Date 03/04/16 Type of Consultation: Pulm Subjective Unresponsive on vent. Was not able to tolerate apnea test. Objective Vital Signs Date Time Temp Pulse Resp B/P Pulse Ox O2 Delivery O2 Flow Rate FiO2 03/06/16 16:00 103 03/06/16 15:30 20 90/51 100 03/06/16 15:00 Mechanical Ventilator 03/06/16 12:00 97.0 03/06/16 08:30 60 03/04/16 08:43 2.0 Intake and Output 03/05/16 03/05/16 03/06/16 15:00 23:00 07:00 Intake Total 200 ml 1972.85 ml 1774.75 ml Output Total 535 ml 440 ml 610 ml Balance -335 ml 1532.85 ml 1164.75 ml HEENT: Neck supple; no JVD; no LAD CVS: RRR, S1 and S2 CHEST: Clear ABD: Soft, NT, + BS EXT: No c/c/e NEURO: No GAG; No corneal; No oculocephalic reflex; not overbreathing vent Results/Medications Result Diagram: 03/06/16 0430 03/06/16 0430 Results 24 hrs Laboratory Tests Test 03/05/16 16:44 03/05/16 19:59 03/06/16 02:17 03/06/16 04:30 Arterial Blood HCO3 22.2 22.7 Arterial Blood Base Excess -2.7 -3.7 L Arterial Blood Oxygen Saturation 97.7 99.2 H Chavo Test ACCEPTAB N/A Arterial Blood Gas Puncture Site Left Radial A-Line Arterial Blood Carboxyhemoglobin 0.3 0.3 Arterial Blood Date Drawn 03/05/2016 5:00:04 PM 03/05/2016 8:02:43 PM Arterial Blood Methemoglobin 0.1 0.2 Arterial Blood pCO2 (Temp correct) 39.1 46.2 H Arterial Blood pH (Temp corrected) 7.373 7.309 L Arterial Blood pO2 (Temp corrected) 107.8 H 274.8 H Blood Gas A-a O2 Differential 277.0 H 392.0 H Blood Gas Actual Respiration Rate 20 20 Blood Gas Low PEEP Setting 5.0 5.0 Blood Gas Modality VENT - AC VENT - AC Blood Gas Notified Time 03/05/2016 5:08:58 PM 03/05/2016 8:10:18 PM Blood Gas Notified Whom CW MG Blood Gas Respiration Rate 20.0 20.0 Blood Gas Specimen Source Blood arterial Blood arterial Blood Gas Temperature 37.0 37.0 Blood Gas Tidal Volume 500.0 500.0 FiO2 60.0 100.0 Oxyhemoglobin Percent 97.3 98.7 Total Hemoglobin 13.2 14.3 Vancomycin Level Trough 14.8 Anion Gap 17 H Basophils # 0.0 Basophils % 0.2 Blood Morphology Comment Blood Urea Nitrogen 59 H Calcium Level 9.2 Carbon Dioxide Level 24 Chloride Level 117 H Creatinine 1.83 H Eosinophils # 0.4 Eosinophils % 5.2 Glucose Level 97 # Hematocrit 35.1 L Hemoglobin 12.3 L Lymphocytes # 0.7 L Lymphocytes % 10.5 L Mean Corpuscular Hemoglobin 32.5 Mean Corpuscular Hemoglobin Concent 34.9 Mean Corpuscular Volume 93.1 Mean Platelet Volume 10.6 #H Monocytes # 0.0 L Monocytes % 0.3 Neutrophils # 5.7 Neutrophils % 83.8 H Nucleated Red Blood Cells # 0.0 Nucleated Red Blood Cells % 0.0 Platelet Count 20 #*L Potassium Level 3.8 Red Blood Count 3.77 L Red Cell Distribution Width 14.5 Sodium Level 154 H White Blood Count 6.9 # Test 03/06/16 12:24 Lab Scanned Report REFERENCE LAB Medications Current Medications Ondansetron HCl (Zofran Inj) 4 mg Q6H PRN IV NAUSEA AND/OR VOMITING; Start at 13:00 Acetaminophen (Tylenol Tab) 650 mg Q6H PRN PO PAIN LEVEL 1-3 OR FEVER; Start at 13:00 Acetaminophen (Tylenol Supp) 650 mg Q6H PRN [place] PAIN LEVEL 1-3 OR FEVER; Start 02/29/16 at 13:00 Acetaminophen/ Hydrocodone Bitart ([place] (5/325)) 1 tab Q6H PRN PO MODERATE PAIN LEVEL 4-6; Start 02/29/16 at 13:00 Acetaminophen/ Hydrocodone Bitart ([place] (5/325)) 2 tab Q6H PRN PO SEVERE PAIN LEVEL 7-10; Start 02/29/16 at 13:00 Morphine Sulfate (morphine) 2 mg Q4H PRN IV SEVERE PAIN LEVEL 7-10 Last administered on 03/01/16 06:13; Admin Dose 2 MG; Start 02/29/16 at 13:00 Docusate Sodium (Colace) 100 mg Q12H PRN PO CONSTIPATION; Start 02/29/16 at 13: 00 Magnesium Hydroxide (Milk Of Mag) 30 ml DAILY PRN PO CONSTIPATION; Start at 13:00 Bisacodyl (Dulcolax Supp) 10 mg DAILY PRN [place] CONSTIPATION; Start 02/29/16 at 13 :00 Pantoprazole (Protonix Iv) 40 mg DAILY@06 IV Last administered on 03/06/16 05: 55; Admin Dose 40 MG; Start 03/01/16 at 06:00 Chlordiazepoxide (Librium) 25 mg TID PO Last administered on 03/05/16 20:58; Admin Dose 25 MG; Start 02/29/16 at 14:00 Hydralazine HCl (Apresoline) 10 mg Q4H PRN IV sbp>160 Last administered on 03/03 01:31; Admin Dose 10 MG; Start 02/29/16 at 14:00 Diphenhydramine HCl (Benadryl) 25 mg Q6H PRN IV ALLERGIC REACTION Last administered on 03/01/16 06:57; Admin Dose 25 MG; Start 02/29/16 at 17:00 Neomycin/ Polymyxin/ Bacitracin 1 applic 1 applic BID TOP Last administered on 03/06/16 09:58; Admin Dose 1 APPLIC; Start 03/02/16 at 21:00 Piperacillin Sod/ Tazobactam Sod 100 ml @ 200 mls/hr Q8 IVPB Last administered on 03/06/16 13:32; Admin Dose 200 MLS/HR; Start 03/04/16 at 14:00 Levofloxacin/ Dextrose 100 ml @ 100 mls/hr Q24H IVPB Last administered on 03/06 12:30; Admin Dose 100 MLS/HR; Start 03/04/16 at 12:00 Norepinephrine 16 mg/Dextrose 500 ml @ 0 mls/hr TITRATE IV Last administered on 03/06/16 15:49; Admin Dose 41.25 MLS/HR; Start 03/05/16 at 07:00 Phenylephrine HCl 40 mg/Dextrose 500 ml @ 0 mls/hr TITRATE IV ; Start 03/05/16 at 07:00 Dextrose 1,000 ml @ 100 mls/hr Q10H IV Last administered on 03/05/16 19:28; Admin Dose 100 MLS/HR; Start 03/04/16 at 17:00 Vasopressin 60 unit/Dextrose 60 ml @ 0 mls/hr Q12H IV Last administered on 03/06 10:02; Admin Dose 2.4 MLS/HR; Start 03/04/16 at 22:00 Dopamine HCl 800 mg/Dextrose 250 ml @ 2.43 mls/hr TITRATE IV ; Start 03/04/16 at 22:00 Vancomycin HCl 500 mg/Dextrose 100 ml @ 100 mls/hr Q12H IVPB Last administered on 03/06/16 15:38; Admin Dose 100 MLS/HR; Start 03/05/16 at 15:00 Caspofungin 35 mg/ Sodium Chloride 250 ml @ 250 mls/hr Q24H IV ; Start at 22:00 Acyclovir 650 mg/ Dextrose 100 ml @ 100 mls/hr Q8 IVPB Last administered on 14:29; Admin Dose 100 MLS/HR; Start 03/05/16 at 23:00; Stop 03/06/16 at 19:00 Dextrose/Sodium Chloride 1,000 ml @ 250 mls/hr Q4H IV Last administered on 09:58; Admin Dose 250 MLS/HR; Start 03/06/16 at 07:00 Acyclovir/Dextrose (Zovirax/D5W) 100 ml @ 100 mls/hr Q12H IVPB ; Start at 02:00 Assessment/Plan Additional Assessment/Plan IMP: 1. s/p Cardiopulmonary Arrest 2. Anoxic Encephalopathy ? brain 3. ARF 4. Ischemic hepatopathy 5. AIDS 7. 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 Vent support 2 .Will retry apnea test 3. Abx per ID 4. Prognosis extremely grim 35 min cc time BERNY ESPARZA MD Mar 06, 2016 16:38
[2016-03-06 16:58] LABS: AADO2 Arterial 240.4 mmHg (7.0-24.0); Arterial Base Excess -6.1 mmol/L (-3.0-3); Arterial COHb 0.3 % (0.0-3.0); Arterial Fraction of Oxyhgb 97.8 % (93.0-99.0); Arterial HCO3 20.6 mmol/L (22.0-26.0); Arterial MetHb 0.2 % (0.0-1.5); Arterial Total Hemglobin 12.5 g/dl (12.0-18.0); MODE VENT - AC
[2016-03-06 18:13] LABS: Arterial Base Excess -5.8 mmol/L (-3.0-3); Arterial COHb 0.2 % (0.0-3.0); Arterial Fraction of Oxyhgb 98.2 % (93.0-99.0); Arterial HCO3 21.3 mmol/L (22.0-26.0); Arterial MetHb 0.3 % (0.0-1.5); Arterial Total Hemglobin 12.3 g/dl (12.0-18.0); MODE CANNULA FOR APNEA TEST
[2016-03-06 18:56] LABS: AADO2 Arterial 486.5 mmHg (7.0-24.0)
[2016-03-06] MEDS: CASPOFUNGIN 35 MG in SOD CHLORIDE 0.9% 250 ML IV SCH (21:32)
[2016-03-07] VITALS (102 sets, daily range): BP systolic 86–176; BP diastolic 47–132; PULSE 75–120; RESP 12–20
[2016-03-07] MEDS: ACYCLOVIR IVPB SCH ×2 (00:28→14:45)
[2016-03-07] MEDS: DEXTROSE 5% IVPB SCH ×2 (00:28→14:45)
[2016-03-07] MEDS: VASOPRESSIN 60 UNIT in DEXTROSE 5% 57 ML IV SCH ×2 (00:32→22:00)
[2016-03-07] MEDS: DEXTROSE 5% 1,000 ML IV SCH ×3 (02:46→16:33)
[2016-03-07] MEDS: VANCOMYCIN 500 MG in DEXTROSE 5% 100 ML IVPB SCH ×2 (02:46→16:32)
[2016-03-07 04:52] LABS: HEMATOCRIT 30.6 % (42.0-52.0); HEMOGLOBIN 10.6 g/dl (14.0-18.0); MEAN CORPUSCULAR HEMOGLOBIN 32.1 pg (29.0-33.0); MEAN CORPUSCULAR HGB CONC 34.7 g/dl (32.0-37.0); MEAN CORPUSCULAR VOLUME 92.7 fl (82.0-101.0); MEAN PLATELET VOLUME 10.7 fl (7.4-10.4); RED CELL DISTRIBUTION WIDTH 14.9 % (11.5-14.5); UNCORRECTED WBC 9.5 10^3/ul (4.8-10.8); WHITE BLOOD COUNT 9.5 10^3/ul (4.8-10.8)
[2016-03-07 04:58] LABS: PLATELET COUNT 18 10^3/UL (140-440); SUSPECT 1
[2016-03-07 04:59] LABS: CONDITION 1; LH ANALYZER COMMENTS 1
[2016-03-07] MEDS: PIPER-TAZO 3.375 GM IV (PMX) 100 ML IVPB SCH ×3 (05:10→21:54)
[2016-03-07] MEDS: PANTOPRAZOLE 40 MG INJ IV SCH (05:10)
[2016-03-07 05:16] LABS: POTASSIUM 4.2 mmol/L (3.5-5.1)
[2016-03-07 05:19] LABS: CREATININE 1.9 mg/dl (0.61-1.24)
[2016-03-07 05:20] LABS: CALCIUM 8.6 mg/dl (8.4-10.2)
--- NOTE | 2016-03-07 07:03 | PN ---
Date/Time of Note Date/Time of Note DATE: 03/07/16 TIME: 07:00 Assessment/Plan VTE Prophylaxis VTE Prophylaxis Intervention: other Lines/Catheters IV [facility] A Line Urinary Cath still in place: Yes Reason Cath still needed: urinary retention Assessment/Plan Problems: (1) HIV disease Status: Chronic Comment: Noted. He is on treatment however given the situation this is a poor prognosis. Please see below (2) Chronic active hepatitis C Status: Chronic Comment: Noted. (3) Fungal septic shock Status: Acute Comment: He is not on pressors and is on appropriate antibiotics however he is status post arrest with severe anoxic brain injury and EEG showing brain . In addition his field apnea test. Attempting to convene biomedical ethics committee (4) History of cardiac arrest Status: Acute Comment: As above (5) Acute kidney injury (nontraumatic) Status: Acute Comment: Stable at this time. Please note hypernatremia has been corrected. He did not improve his status (6) Homeless single person Status: Chronic Comment: Social work has been involved attempting to locate any spokes people for this patient without success Subjective 24 Hr Interval Summary Subjective hx not possible: pt non-verbal, pt critical status Exam/Review of Systems Vital Signs Vitals Vital Signs Date Time Temp Pulse Resp B/P Pulse Ox O2 Delivery O2 Flow Rate FiO2 03/07/16 06:30 114 20 110/57 100 03/07/16 05:17 60 03/07/16 04:00 99.9 Mechanical Ventilator 03/04/16 08:43 2.0 Intake and Output 03/06/16 03/06/16 03/07/16 15:00 23:00 07:00 Intake Total 852.0 ml 2031.7 ml 1521.4 ml Output Total 260 ml 285 ml 395 ml Balance 592.0 ml 1746.7 ml 1126.4 ml Exam Completely unresponsive Constitutional: non-verbal Respiratory: clear to auscultation, normal air movement Cardiovascular: nl pulses, regular rate and rhythm Gastrointestinal: nl liver, spleen, soft Results Result Diagram: 03/07/16 0400 03/07/16 0400 Results 24 hrs Laboratory Tests Test 03/06/16 12:24 03/06/16 16:47 03/06/16 17:00 03/07/16 04:00 Lab Scanned Report REFERENCE LAB Arterial Blood HCO3 20.6 L 21.3 L Arterial Blood Base Excess -6.1 L -5.8 L Arterial Blood Oxygen Saturation 98.3 H 98.7 H Chavo Test N/A N/A Arterial Blood Gas Puncture Site A-Line A-Line Arterial Blood Carboxyhemoglobin 0.3 0.2 Arterial Blood Date Drawn 03/06/2016 4:44:05 PM 03/06/2016 6:00:04 PM Arterial Blood Methemoglobin 0.2 0.3 Arterial Blood pCO2 (Temp correct) 45.6 H 48.4 H Arterial Blood pH (Temp corrected) 7.273 *L 7.261 *L Arterial Blood pO2 (Temp corrected) 137.2 H 178.1 H Blood Gas A-a O2 Differential 240.4 H 486.5 H Blood Gas Actual Respiration Rate 20 Blood Gas Critical Value Read Back VICKY YAO Blood Gas Low PEEP Setting 5.0 Blood Gas Modality VENT - AC CANNULA FOR APNEA TEST Blood Gas Notified Time 03/06/2016 4:57:52 PM 03/06/2016 6:13:32 PM Blood Gas Notified Whom ELIZABETH RT AT Blood Gas Respiration Rate 20.0 Blood Gas Specimen Source Blood arterial Blood arterial Blood Gas Temperature 37.0 37.0 Blood Gas Tidal Volume 500.0 FiO2 60.0 100.0 Oxyhemoglobin Percent 97.8 98.2 Total Hemoglobin 12.5 12.3 Anion Gap 12 Basophils # Pending Basophils % Pending Blood Morphology Comment Blood Urea Nitrogen 64 H Calcium Level 8.6 Carbon Dioxide Level 22 Chloride Level 107 # Creatinine 1.90 H Eosinophils # Pending Eosinophils % Pending Glucose Level 73 Hematocrit 30.6 L Hemoglobin 10.6 L Lymphocytes # Pending Lymphocytes % Pending Mean Corpuscular Hemoglobin 32.1 Mean Corpuscular Hemoglobin Concent 34.7 Mean Corpuscular Volume 92.7 Mean Platelet Volume 10.7 H Monocytes # Pending Monocytes % Pending Neutrophils # Pending Neutrophils % Pending Nucleated Red Blood Cells # Pending Nucleated Red Blood Cells % Pending Platelet Count 18 *L Potassium Level 4.2 Red Blood Count 3.30 L Red Cell Distribution Width 14.9 H Sodium Level 137 # White Blood Count 9.5 # Medications Medications Current Medications Ondansetron HCl (Zofran Inj) 4 mg Q6H PRN IV NAUSEA AND/OR VOMITING; Start at 13:00 Acetaminophen (Tylenol Tab) 650 mg Q6H PRN PO PAIN LEVEL 1-3 OR FEVER; Start at 13:00 Acetaminophen (Tylenol Supp) 650 mg Q6H PRN [place] PAIN LEVEL 1-3 OR FEVER; Start 02/29/16 at 13:00 Acetaminophen/ Hydrocodone Bitart ([place] (5/325)) 1 tab Q6H PRN PO MODERATE PAIN LEVEL 4-6; Start 02/29/16 at 13:00 Acetaminophen/ Hydrocodone Bitart ([place] (5/325)) 2 tab Q6H PRN PO SEVERE PAIN LEVEL 7-10; Start 02/29/16 at 13:00 Morphine Sulfate (morphine) 2 mg Q4H PRN IV SEVERE PAIN LEVEL 7-10 Last administered on 03/01/16 06:13; Admin Dose 2 MG; Start 02/29/16 at 13:00 Docusate Sodium (Colace) 100 mg Q12H PRN PO CONSTIPATION; Start 02/29/16 at 13: 00 Magnesium Hydroxide (Milk Of Mag) 30 ml DAILY PRN PO CONSTIPATION; Start at 13:00 Bisacodyl (Dulcolax Supp) 10 mg DAILY PRN [place] CONSTIPATION; Start 02/29/16 at 13 :00 Pantoprazole (Protonix Iv) 40 mg DAILY@06 IV Last administered on 03/07/16 05: 10; Admin Dose 40 MG; Start 03/01/16 at 06:00 Chlordiazepoxide (Librium) 25 mg TID PO Last administered on 03/05/16 20:58; Admin Dose 25 MG; Start 02/29/16 at 14:00 Hydralazine HCl (Apresoline) 10 mg Q4H PRN IV sbp>160 Last administered on 03/03 01:31; Admin Dose 10 MG; Start 02/29/16 at 14:00 Diphenhydramine HCl (Benadryl) 25 mg Q6H PRN IV ALLERGIC REACTION Last administered on 03/01/16 06:57; Admin Dose 25 MG; Start 02/29/16 at 17:00 Neomycin/ Polymyxin/ Bacitracin 1 applic 1 applic BID TOP Last administered on 03/06/16 20:25; Admin Dose 1 APPLIC; Start 03/02/16 at 21:00 Piperacillin Sod/ Tazobactam Sod 100 ml @ 200 mls/hr Q8 IVPB Last administered on 03/07/16 05:10; Admin Dose 200 MLS/HR; Start 03/04/16 at 14:00 Levofloxacin/ Dextrose 100 ml @ 100 mls/hr Q24H IVPB Last administered on 03/06 12:30; Admin Dose 100 MLS/HR; Start 03/04/16 at 12:00 Norepinephrine 16 mg/Dextrose 500 ml @ 0 mls/hr TITRATE IV Last administered on 03/07/16 04:27; Admin Dose 45 MLS/HR; Start 03/05/16 at 07:00 Phenylephrine HCl 40 mg/Dextrose 500 ml @ 0 mls/hr TITRATE IV ; Start 03/05/16 at 07:00 Dextrose 1,000 ml @ 100 mls/hr Q10H IV Last administered on 03/07/16 02:46; Admin Dose 100 MLS/HR; Start 03/04/16 at 17:00 Vasopressin 60 unit/Dextrose 60 ml @ 0 mls/hr Q12H IV Last administered on 03/07 00:32; Admin Dose 2.4 MLS/HR; Start 03/04/16 at 22:00 Dopamine HCl 800 mg/Dextrose 250 ml @ 2.43 mls/hr TITRATE IV ; Start 03/04/16 at 22:00 Vancomycin HCl 500 mg/Dextrose 100 ml @ 100 mls/hr Q12H IVPB Last administered on 03/07/16 02:46; Admin Dose 100 MLS/HR; Start 03/05/16 at 15:00 Caspofungin 35 mg/ Sodium Chloride 250 ml @ 250 mls/hr Q24H IV Last administered on 03/06/16 21:32; Admin Dose 250 MLS/HR; Start 03/06/16 at 22:00 Acyclovir/Dextrose (Zovirax/D5W) 100 ml @ 100 mls/hr Q12H IVPB Last administered on 03/07/16 00:28; Admin Dose 100 MLS/HR; Start 03/07/16 at 02:00 SANTOSH FUNG MD Mar 07, 2016 07:03
[2016-03-07] MEDS: CHLORDIAZEPOXIDE 25 MG CAP PO SCH ×3 (08:24→21:00)
[2016-03-07] MEDS: NEOMYC/POLYMYX/BACIT 30 GM OINT TOP SCH ×2 (09:22→21:54)
[2016-03-07 10:07] LABS: ANISOCYTOSIS 1+; EOSINOPHILS # 0.3 10^3/ul (0.0-0.5); LYMPHOCYTES # 0.5 10^3/ul (0.8-2.9); MONOCYTE # 0.4 10^3/ul (0.3-0.9); NEUTROPHIL # 6.8 10^3/ul (1.6-7.5); PLATELET ESTIMATE PLT APPEAR DECREASED
[2016-03-07] MEDS: LEVOFLOXACIN 500MG/D5W (PMX) 100 ML IVPB SCH (11:21)
--- NOTE | 2016-03-07 14:01 | RADRPT ---
Vent Rate: 126 bpm RR Interval: 0 msec VA Interval: 114 msec QRS Duration: 80 msec QT Interval: 282 msec QTC Interval: 408 msec P-R-T [place]: 81 - 74 - 0 degrees Sinus tachycardia Marked ST abnormality, possible inferior subendocardial injury Marked ST abnormality, possible anterior subendocardial injury Abnormal ECG Electronically Signed By: Bong Bear [id number]
--- NOTE | 2016-03-07 14:24 | CONS ---
Date/Time of Note Date/Time of Note DATE: 03/07/16 TIME: 14:19 Assessment/Plan Assessment/Plan Chief Complaint/Hosp Course D PROGRESS NOTE TOTAL ABX DAY # => Vanco IV + Zosyn + Cancidas + Acyclovir 24H INTERVAL SUMMARY * Pt with poor prognosis - Brain per EEG w/apnea test aborted per symptomatic hypotension * s/p cardiopulmonary arrest w/concern anoxic brain injury/brain ? Pending clinical MD determination = Bioethics consult pending * Per notes -> SW attempting to locate family CXR 03/05/16: IMPRESSION: Pulmonary venous hypertension Increase in right perihilar and RLL patchy consolidations Mild left perihilar and LLL patchy consolidations PHYSICAL EXAMINATION: GENERAL: 55 yo M HEENT: Unremarkable NECK: Supple, trachea midline. CHEST: Equal chest rise bilaterally HEART: Pulse RRR ABDOMEN: Soft EXTREMITIES: Warm SKIN: See photos ID ASSESSMENT: 55 yo M admit with: 1. Severe sepsis with shock. 2. Fungemia. 3. Acute encephalopathy, present on admission. Neurology on the case and so far CT of the brain revealed no intracranial hemorrhage or mass. 4. Pneumonia, possibly aspiration versus community acquired. 5. HIV positivity. 6. Hepatitis C virus. 7. Homelessness. 8. ETOH abuse. 9. Transaminitis, with liver ultrasound revealing cholelithiasis, without evidence of acute cholecystitis, and normal common bile duct. (-)MRSA Nares INVASIVES: ETT, OGT, FC, Peripheral venous access ABX ALLERGY: KNDA CURRENT ABX: TOTAL ABX DAY # # => Vanco IV + Zosyn + Cancidas + Acyclovir ID RECOMMENDATIONS: 1. Poor prognosis s/p cardiopulmonary arrest w/concern severe anoxic brain injury/brain per EEG pending MD evaluation. 2. Per notes: Attempting to locate family w/bioethics consult pending terminal extubation decision making . Problems: Consultation Date/Type/Reason Admit Date/Time Feb 29, 2016 at 12:20 Initial Consult Date 03/04/16 Type of Consultation: ID Exam/Review of Systems Vital Signs Vitals Vital Signs Date Time Temp Pulse Resp B/P Pulse Ox O2 Delivery O2 Flow Rate FiO2 03/07/16 13:15 95 20 123/65 100 03/07/16 13:00 Mechanical Ventilator 03/07/16 12:37 60 03/07/16 11:15 98.7 03/04/16 08:43 2.0 Intake and Output 03/06/16 03/06/16 03/07/16 15:00 23:00 07:00 Intake Total 852.0 ml 2031.7 ml 1623.8 ml Output Total 260 ml 285 ml 470 ml Balance 592.0 ml 1746.7 ml 1153.8 ml Results Result Diagram: 03/07/16 0400 03/07/16 0400 Results 24 hrs Laboratory Tests Test 03/06/16 16:47 03/06/16 17:00 03/07/16 04:00 Arterial Blood HCO3 20.6 L 21.3 L Arterial Blood Base Excess -6.1 L -5.8 L Arterial Blood Oxygen Saturation 98.3 H 98.7 H Chavo Test N/A N/A Arterial Blood Gas Puncture Site A-Line A-Line Arterial Blood Carboxyhemoglobin 0.3 0.2 Arterial Blood Date Drawn 03/06/2016 4:44:05 PM 03/06/2016 6:00:04 PM Arterial Blood Methemoglobin 0.2 0.3 Arterial Blood pCO2 (Temp correct) 45.6 H 48.4 H Arterial Blood pH (Temp corrected) 7.273 *L 7.261 *L Arterial Blood pO2 (Temp corrected) 137.2 H 178.1 H Blood Gas A-a O2 Differential 240.4 H 486.5 H Blood Gas Actual Respiration Rate 20 Blood Gas Critical Value Read Back VICKY YAO Blood Gas Low PEEP Setting 5.0 Blood Gas Modality VENT - AC CANNULA FOR APNEA TEST Blood Gas Notified Time 03/06/2016 4:57:52 PM 03/06/2016 6:13:32 PM Blood Gas Notified Whom ELIZABETH RT AT Blood Gas Respiration Rate 20.0 Blood Gas Specimen Source Blood arterial Blood arterial Blood Gas Temperature 37.0 37.0 Blood Gas Tidal Volume 500.0 FiO2 60.0 100.0 Oxyhemoglobin Percent 97.8 98.2 Total Hemoglobin 12.5 12.3 Anion Gap 12 Anisocytosis 1+ Band Neutrophils % 16.0 H Basophils # Basophils % Blood Morphology Comment Blood Urea Nitrogen 64 H Calcium Level 8.6 Carbon Dioxide Level 22 Chloride Level 107 # Creatinine 1.90 H Differential Comment MANUAL DIFF Eosinophils # 0.3 Eosinophils % 3.0 Glucose Level 73 Hematocrit 30.6 L Hemoglobin 10.6 L Large Platelets RARE Lymphocytes # 0.5 L Lymphocytes % 5.0 L Mean Corpuscular Hemoglobin 32.1 Mean Corpuscular Hemoglobin Concent 34.7 Mean Corpuscular Volume 92.7 Mean Platelet Volume 10.7 H Monocytes # 0.4 Monocytes % 4.0 Neutrophils # 6.8 Neutrophils % 72.0 Nucleated Red Blood Cells # Nucleated Red Blood Cells % 5.0 H Platelet Count 18 *L Platelet Estimate PLT APPEAR DECREASED Potassium Level 4.2 Red Blood Count 3.30 L Red Cell Distribution Width 14.9 H Sodium Level 137 # White Blood Count 9.5 # Medications Medications Current Medications Ondansetron HCl (Zofran Inj) 4 mg Q6H PRN IV NAUSEA AND/OR VOMITING; Start at 13:00 Acetaminophen (Tylenol Tab) 650 mg Q6H PRN PO PAIN LEVEL 1-3 OR FEVER; Start at 13:00 Acetaminophen (Tylenol Supp) 650 mg Q6H PRN [place] PAIN LEVEL 1-3 OR FEVER; Start 02/29/16 at 13:00 Acetaminophen/ Hydrocodone Bitart ([place] (5/325)) 1 tab Q6H PRN PO MODERATE PAIN LEVEL 4-6; Start 02/29/16 at 13:00 Acetaminophen/ Hydrocodone Bitart ([place] (5/325)) 2 tab Q6H PRN PO SEVERE PAIN LEVEL 7-10; Start 02/29/16 at 13:00 Morphine Sulfate (morphine) 2 mg Q4H PRN IV SEVERE PAIN LEVEL 7-10 Last administered on 03/01/16 06:13; Admin Dose 2 MG; Start 02/29/16 at 13:00 Docusate Sodium (Colace) 100 mg Q12H PRN PO CONSTIPATION; Start 02/29/16 at 13: 00 Magnesium Hydroxide (Milk Of Mag) 30 ml DAILY PRN PO CONSTIPATION; Start at 13:00 Bisacodyl (Dulcolax Supp) 10 mg DAILY PRN [place] CONSTIPATION; Start 02/29/16 at 13 :00 Pantoprazole (Protonix Iv) 40 mg DAILY@06 IV Last administered on 03/07/16 05: 10; Admin Dose 40 MG; Start 03/01/16 at 06:00 Chlordiazepoxide (Librium) 25 mg TID PO Last administered on 03/05/16 20:58; Admin Dose 25 MG; Start 02/29/16 at 14:00 Hydralazine HCl (Apresoline) 10 mg Q4H PRN IV sbp>160 Last administered on 03/03 01:31; Admin Dose 10 MG; Start 02/29/16 at 14:00 Diphenhydramine HCl (Benadryl) 25 mg Q6H PRN IV ALLERGIC REACTION Last administered on 03/01/16 06:57; Admin Dose 25 MG; Start 02/29/16 at 17:00 Neomycin/ Polymyxin/ Bacitracin 1 applic 1 applic BID TOP Last administered on 03/07/16 09:22; Admin Dose 1 APPLIC; Start 03/02/16 at 21:00 Piperacillin Sod/ Tazobactam Sod 100 ml @ 200 mls/hr Q8 IVPB Last administered on 03/07/16 13:33; Admin Dose 200 MLS/HR; Start 03/04/16 at 14:00 Levofloxacin/ Dextrose 100 ml @ 100 mls/hr Q24H IVPB Last administered on 03/07 11:21; Admin Dose 100 MLS/HR; Start 03/04/16 at 12:00; Stop 03/07/16 at 23 :00 Norepinephrine 16 mg/Dextrose 500 ml @ 0 mls/hr TITRATE IV Last administered on 03/07/16 04:27; Admin Dose 45 MLS/HR; Start 03/05/16 at 07:00 Phenylephrine HCl 40 mg/Dextrose 500 ml @ 0 mls/hr TITRATE IV ; Start 03/05/16 at 07:00 Dextrose 1,000 ml @ 100 mls/hr Q10H IV Last administered on 03/07/16 02:46; Admin Dose 100 MLS/HR; Start 03/04/16 at 17:00 Vasopressin 60 unit/Dextrose 60 ml @ 0 mls/hr Q12H IV Last administered on 03/07 00:32; Admin Dose 2.4 MLS/HR; Start 03/04/16 at 22:00 Dopamine HCl 800 mg/Dextrose 250 ml @ 2.43 mls/hr TITRATE IV ; Start 03/04/16 at 22:00 Vancomycin HCl 500 mg/Dextrose 100 ml @ 100 mls/hr Q12H IVPB Last administered on 03/07/16 02:46; Admin Dose 100 MLS/HR; Start 03/05/16 at 15:00 ; Status Future Hold Caspofungin 35 mg/ Sodium Chloride 250 ml @ 250 mls/hr Q24H IV Last administered on 03/06/16 21:32; Admin Dose 250 MLS/HR; Start 03/06/16 at 22:00 Acyclovir 650 mg/ Dextrose 100 ml @ 100 mls/hr Q12H IVPB Last administered on 03/07/16 00:28; Admin Dose 100 MLS/HR; Start 03/07/16 at 02:00 Levofloxacin/ Dextrose (Levaquin 250 Mg/ D5W 50 ml (Pmx)) 50 ml @ 50 mls/hr Q24H IVPB ; Start 03/08/16 at 12:00 ANDREE BRADLEY NP Mar 07, 2016 14:24
--- NOTE | 2016-03-07 16:20 | CONS ---
Date/Time of Note Date/Time of Note DATE: 03/07/16 TIME: 16:18 Consult Date/Type/Reason Admit Date/Time Feb 29, 2016 at 12:20 Initial Consult Date 03/04/16 Type of Consultation: Pulm Subjective Was unable to tolerate apnea test--> severe hypotension within 20 seconds. Objective Vital Signs Date Time Temp Pulse Resp B/P Pulse Ox O2 Delivery O2 Flow Rate FiO2 03/07/16 16:00 95 03/07/16 15:45 98.2 20 131/71 100 03/07/16 15:00 Mechanical Ventilator 03/07/16 12:37 60 03/04/16 08:43 2.0 Intake and Output 03/06/16 03/06/16 03/07/16 15:00 23:00 07:00 Intake Total 852.0 ml 2031.7 ml 1623.8 ml Output Total 260 ml 285 ml 470 ml Balance 592.0 ml 1746.7 ml 1153.8 ml HEENT: Neck supple; no JVD; no LAD CVS: RRR, S1 and S2 CHEST: Clear ABD: Soft, NT, + BS EXT: No c/c/e NEURO: No GAG; No corneal; No oculocephalic reflex; not overbreathing vent Results/Medications Result Diagram: 03/07/16 0400 03/07/16 0400 Results 24 hrs Laboratory Tests Test 03/06/16 16:47 03/06/16 17:00 03/07/16 04:00 03/07/16 13:55 Arterial Blood HCO3 20.6 L 21.3 L Arterial Blood Base Excess -6.1 L -5.8 L Arterial Blood Oxygen Saturation 98.3 H 98.7 H Chavo Test N/A N/A Arterial Blood Gas Puncture Site A-Line A-Line Arterial Blood Carboxyhemoglobin 0.3 0.2 Arterial Blood Date Drawn 03/06/2016 4:44:05 PM 03/06/2016 6:00:04 PM Arterial Blood Methemoglobin 0.2 0.3 Arterial Blood pCO2 (Temp correct) 45.6 H 48.4 H Arterial Blood pH (Temp corrected) 7.273 *L 7.261 *L Arterial Blood pO2 (Temp corrected) 137.2 H 178.1 H Blood Gas A-a O2 Differential 240.4 H 486.5 H Blood Gas Actual Respiration Rate 20 Blood Gas Critical Value Read Back VICKY YAO Blood Gas Low PEEP Setting 5.0 Blood Gas Modality VENT - AC CANNULA FOR APNEA TEST Blood Gas Notified Time 03/06/2016 4:57:52 PM 03/06/2016 6:13:32 PM Blood Gas Notified Whom ELIZABETH RT AT Blood Gas Respiration Rate 20.0 Blood Gas Specimen Source Blood arterial Blood arterial Blood Gas Temperature 37.0 37.0 Blood Gas Tidal Volume 500.0 FiO2 60.0 100.0 Oxyhemoglobin Percent 97.8 98.2 Total Hemoglobin 12.5 12.3 Anion Gap 12 Anisocytosis 1+ Band Neutrophils % 16.0 H Basophils # Basophils % Blood Morphology Comment Blood Urea Nitrogen 64 H Calcium Level 8.6 Carbon Dioxide Level 22 Chloride Level 107 # Creatinine 1.90 H Differential Comment MANUAL DIFF Eosinophils # 0.3 Eosinophils % 3.0 Glucose Level 73 Hematocrit 30.6 L Hemoglobin 10.6 L Large Platelets RARE Lymphocytes # 0.5 L Lymphocytes % 5.0 L Mean Corpuscular Hemoglobin 32.1 Mean Corpuscular Hemoglobin Concent 34.7 Mean Corpuscular Volume 92.7 Mean Platelet Volume 10.7 H Monocytes # 0.4 Monocytes % 4.0 Neutrophils # 6.8 Neutrophils % 72.0 Nucleated Red Blood Cells # Nucleated Red Blood Cells % 5.0 H Platelet Count 18 *L Platelet Estimate PLT APPEAR DECREASED Potassium Level 4.2 Red Blood Count 3.30 L Red Cell Distribution Width 14.9 H Sodium Level 137 # White Blood Count 9.5 # Vancomycin Level Trough 13.9 Medications Current Medications Ondansetron HCl (Zofran Inj) 4 mg Q6H PRN IV NAUSEA AND/OR VOMITING; Start at 13:00 Acetaminophen (Tylenol Tab) 650 mg Q6H PRN PO PAIN LEVEL 1-3 OR FEVER; Start at 13:00 Acetaminophen (Tylenol Supp) 650 mg Q6H PRN [place] PAIN LEVEL 1-3 OR FEVER; Start 02/29/16 at 13:00 Acetaminophen/ Hydrocodone Bitart ([place] (5/325)) 1 tab Q6H PRN PO MODERATE PAIN LEVEL 4-6; Start 02/29/16 at 13:00 Acetaminophen/ Hydrocodone Bitart ([place] (5/325)) 2 tab Q6H PRN PO SEVERE PAIN LEVEL 7-10; Start 02/29/16 at 13:00 Morphine Sulfate (morphine) 2 mg Q4H PRN IV SEVERE PAIN LEVEL 7-10 Last administered on 03/01/16 06:13; Admin Dose 2 MG; Start 02/29/16 at 13:00 Docusate Sodium (Colace) 100 mg Q12H PRN PO CONSTIPATION; Start 02/29/16 at 13: 00 Magnesium Hydroxide (Milk Of Mag) 30 ml DAILY PRN PO CONSTIPATION; Start at 13:00 Bisacodyl (Dulcolax Supp) 10 mg DAILY PRN [place] CONSTIPATION; Start 02/29/16 at 13 :00 Pantoprazole (Protonix Iv) 40 mg DAILY@06 IV Last administered on 03/07/16 05: 10; Admin Dose 40 MG; Start 03/01/16 at 06:00 Chlordiazepoxide (Librium) 25 mg TID PO Last administered on 03/05/16 20:58; Admin Dose 25 MG; Start 02/29/16 at 14:00 Hydralazine HCl (Apresoline) 10 mg Q4H PRN IV sbp>160 Last administered on 03/03 01:31; Admin Dose 10 MG; Start 02/29/16 at 14:00 Diphenhydramine HCl (Benadryl) 25 mg Q6H PRN IV ALLERGIC REACTION Last administered on 03/01/16 06:57; Admin Dose 25 MG; Start 02/29/16 at 17:00 Neomycin/ Polymyxin/ Bacitracin 1 applic 1 applic BID TOP Last administered on 03/07/16 09:22; Admin Dose 1 APPLIC; Start 03/02/16 at 21:00 Piperacillin Sod/ Tazobactam Sod 100 ml @ 200 mls/hr Q8 IVPB Last administered on 03/07/16 13:33; Admin Dose 200 MLS/HR; Start 03/04/16 at 14:00 Levofloxacin/ Dextrose 100 ml @ 100 mls/hr Q24H IVPB Last administered on 03/07 11:21; Admin Dose 100 MLS/HR; Start 03/04/16 at 12:00; Stop 03/07/16 at 23 :00 Norepinephrine 16 mg/Dextrose 500 ml @ 0 mls/hr TITRATE IV Last administered on 03/07/16 04:27; Admin Dose 45 MLS/HR; Start 03/05/16 at 07:00 Phenylephrine HCl 40 mg/Dextrose 500 ml @ 0 mls/hr TITRATE IV ; Start 03/05/16 at 07:00 Dextrose 1,000 ml @ 100 mls/hr Q10H IV Last administered on 03/07/16 02:46; Admin Dose 100 MLS/HR; Start 03/04/16 at 17:00 Vasopressin 60 unit/Dextrose 60 ml @ 0 mls/hr Q12H IV Last administered on 03/07 00:32; Admin Dose 2.4 MLS/HR; Start 03/04/16 at 22:00 Dopamine HCl 800 mg/Dextrose 250 ml @ 2.43 mls/hr TITRATE IV ; Start 03/04/16 at 22:00 Vancomycin HCl 500 mg/Dextrose 100 ml @ 100 mls/hr Q12H IVPB Last administered on 03/07/16 02:46; Admin Dose 100 MLS/HR; Start 03/05/16 at 15:00 ; Status Future hold Caspofungin 35 mg/ Sodium Chloride 250 ml @ 250 mls/hr Q24H IV Last administered on 03/06/16 21:32; Admin Dose 250 MLS/HR; Start 03/06/16 at 22:00 Acyclovir 650 mg/ Dextrose 100 ml @ 100 mls/hr Q12H IVPB Last administered on 03/07/16 14:45; Admin Dose 100 MLS/HR; Start 03/07/16 at 02:00 Levofloxacin/ Dextrose (Levaquin 250 Mg/ D5W 50 ml (Pmx)) 50 ml @ 50 mls/hr Q24H IVPB ; Start 03/08/16 at 12:00 Assessment/Plan Additional Assessment/Plan IMP: 1. s/p Cardiopulmonary Arrest 2. Anoxic Encephalopathy--> with clinical examination c/w brain 3. ARF 4. Ischemic hepatopathy 5. AIDS 7. 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 Vent support 2 Will await Bioethics to review case and proceed with terminal extubation 3. Abx per ID 4. If needed, can obtain somatosensory evoked potentials. 35 min cc time BERNY ESPARZA MD Mar 07, 2016 16:20
--- NOTE | 2016-03-07 17:39 | CONS ---
Date/Time of Note Date/Time of Note DATE: 03/07/16 TIME: 17:37 Assessment/Plan Assessment/Plan Chief Complaint/Hosp Course Assessment: Status post cardiac arrest - unclear etiology, PEA was initial rhythm, possibly due to septic shock Severe sepsis with septic shock Fungemia HIV Clinical exam consistent with brain Recommendations: -continue pressors -await ethics committee regarding terminal extubation Problems: Consultation Date/Type/Reason Admit Date/Time Feb 29, 2016 at 12:20 Initial Consult Date 03/04/16 Type of Consultation: Cardiology 24 HR Interval Summary Free Text/Dictation No significant clinical changes. Detailed Summary Additional Comments Unable to obtain review of systems due to patient's mental status. Exam/Review of Systems Vital Signs Vitals Vital Signs Date Time Temp Pulse Resp B/P Pulse Ox O2 Delivery O2 Flow Rate FiO2 03/07/16 16:00 95 03/07/16 15:45 98.2 20 131/71 100 03/07/16 15:00 Mechanical Ventilator 03/07/16 12:37 60 03/04/16 08:43 2.0 Intake and Output 03/06/16 03/06/16 03/07/16 15:00 23:00 07:00 Intake Total 852.0 ml 2031.7 ml 1623.8 ml Output Total 260 ml 285 ml 470 ml Balance 592.0 ml 1746.7 ml 1153.8 ml Exam Constitutional: No alert Psych: other (unresponsive) Head: normocephalic Respiratory: clear to auscultation Cardiovascular: regular rate and rhythm Gastrointestinal: soft Musculoskeletal: nl extremities to inspection Extremities: edema Neurological: unresponsive, No nl mental status Skin: other (numerous tattoos) Results Result Diagram: 03/07/16 0400 03/07/16 0400 Results 24 hrs Laboratory Tests Test 03/07/16 04:00 03/07/16 13:55 Anion Gap 12 Anisocytosis 1+ Band Neutrophils % 16.0 H Basophils # Basophils % Blood Morphology Comment Blood Urea Nitrogen 64 H Calcium Level 8.6 Carbon Dioxide Level 22 Chloride Level 107 # Creatinine 1.90 H Differential Comment MANUAL DIFF Eosinophils # 0.3 Eosinophils % 3.0 Glucose Level 73 Hematocrit 30.6 L Hemoglobin 10.6 L Large Platelets RARE Lymphocytes # 0.5 L Lymphocytes % 5.0 L Mean Corpuscular Hemoglobin 32.1 Mean Corpuscular Hemoglobin Concent 34.7 Mean Corpuscular Volume 92.7 Mean Platelet Volume 10.7 H Monocytes # 0.4 Monocytes % 4.0 Neutrophils # 6.8 Neutrophils % 72.0 Nucleated Red Blood Cells # Nucleated Red Blood Cells % 5.0 H Platelet Count 18 *L Platelet Estimate PLT APPEAR DECREASED Potassium Level 4.2 Red Blood Count 3.30 L Red Cell Distribution Width 14.9 H Sodium Level 137 # White Blood Count 9.5 # Vancomycin Level Trough 13.9 Medications Medications Current Medications Ondansetron HCl (Zofran Inj) 4 mg Q6H PRN IV NAUSEA AND/OR VOMITING; Start at 13:00 Acetaminophen (Tylenol Tab) 650 mg Q6H PRN PO PAIN LEVEL 1-3 OR FEVER; Start at 13:00 Acetaminophen (Tylenol Supp) 650 mg Q6H PRN [place] PAIN LEVEL 1-3 OR FEVER; Start 02/29/16 at 13:00 Acetaminophen/ Hydrocodone Bitart ([place] (5/325)) 1 tab Q6H PRN PO MODERATE PAIN LEVEL 4-6; Start 02/29/16 at 13:00 Acetaminophen/ Hydrocodone Bitart ([place] (5/325)) 2 tab Q6H PRN PO SEVERE PAIN LEVEL 7-10; Start 02/29/16 at 13:00 Morphine Sulfate (morphine) 2 mg Q4H PRN IV SEVERE PAIN LEVEL 7-10 Last administered on 03/01/16 06:13; Admin Dose 2 MG; Start 02/29/16 at 13:00 Docusate Sodium (Colace) 100 mg Q12H PRN PO CONSTIPATION; Start 02/29/16 at 13: 00 Magnesium Hydroxide (Milk Of Mag) 30 ml DAILY PRN PO CONSTIPATION; Start at 13:00 Bisacodyl (Dulcolax Supp) 10 mg DAILY PRN [place] CONSTIPATION; Start 02/29/16 at 13 :00 Pantoprazole (Protonix Iv) 40 mg DAILY@06 IV Last administered on 03/07/16 05: 10; Admin Dose 40 MG; Start 03/01/16 at 06:00 Chlordiazepoxide (Librium) 25 mg TID PO Last administered on 03/05/16 20:58; Admin Dose 25 MG; Start 02/29/16 at 14:00 Hydralazine HCl (Apresoline) 10 mg Q4H PRN IV sbp>160 Last administered on 03/03 01:31; Admin Dose 10 MG; Start 02/29/16 at 14:00 Diphenhydramine HCl (Benadryl) 25 mg Q6H PRN IV ALLERGIC REACTION Last administered on 03/01/16 06:57; Admin Dose 25 MG; Start 02/29/16 at 17:00 Neomycin/ Polymyxin/ Bacitracin 1 applic 1 applic BID TOP Last administered on 03/07/16 09:22; Admin Dose 1 APPLIC; Start 03/02/16 at 21:00 Piperacillin Sod/ Tazobactam Sod 100 ml @ 200 mls/hr Q8 IVPB Last administered on 03/07/16 13:33; Admin Dose 200 MLS/HR; Start 03/04/16 at 14:00 Levofloxacin/ Dextrose 100 ml @ 100 mls/hr Q24H IVPB Last administered on 03/07 11:21; Admin Dose 100 MLS/HR; Start 03/04/16 at 12:00; Stop 03/07/16 at 23 :00 Norepinephrine 16 mg/Dextrose 500 ml @ 0 mls/hr TITRATE IV Last administered on 03/07/16 04:27; Admin Dose 45 MLS/HR; Start 03/05/16 at 07:00 Phenylephrine HCl 40 mg/Dextrose 500 ml @ 0 mls/hr TITRATE IV ; Start 03/05/16 at 07:00 Dextrose 1,000 ml @ 100 mls/hr Q10H IV Last administered on 03/07/16 16:33; Admin Dose 100 MLS/HR; Start 03/04/16 at 17:00 Vasopressin 60 unit/Dextrose 60 ml @ 0 mls/hr Q12H IV Last administered on 03/07 00:32; Admin Dose 2.4 MLS/HR; Start 03/04/16 at 22:00 Dopamine HCl 800 mg/Dextrose 250 ml @ 2.43 mls/hr TITRATE IV ; Start 03/04/16 at 22:00 Vancomycin HCl 500 mg/Dextrose 100 ml @ 100 mls/hr Q12H IVPB Last administered on 03/07/16 16:32; Admin Dose 100 MLS/HR; Start 03/05/16 at 15:00 ; Status Future hold Caspofungin 35 mg/ Sodium Chloride 250 ml @ 250 mls/hr Q24H IV Last administered on 03/06/16 21:32; Admin Dose 250 MLS/HR; Start 03/06/16 at 22:00 Acyclovir 650 mg/ Dextrose 100 ml @ 100 mls/hr Q12H IVPB Last administered on 03/07/16 14:45; Admin Dose 100 MLS/HR; Start 03/07/16 at 02:00 Levofloxacin/ Dextrose (Levaquin 250 Mg/ D5W 50 ml (Pmx)) 50 ml @ 50 mls/hr Q24H IVPB ; Start 03/08/16 at 12:00 SHERRIE DOCKERY MD Mar 07, 2016 17:39
[2016-03-07] MEDS: CASPOFUNGIN 35 MG in SOD CHLORIDE 0.9% 250 ML IV SCH (21:55)
[2016-03-08] VITALS (62 sets, daily range): BP systolic 64–145; BP diastolic 45–93; PULSE 68–94; RESP 17–20
[2016-03-08] MEDS: DEXTROSE 5% 1,000 ML IV SCH ×2 (01:00→05:49)
[2016-03-08] MEDS: DEXTROSE 5% IVPB SCH (03:21)
[2016-03-08] MEDS: ACYCLOVIR IVPB SCH (03:21)
[2016-03-08] MEDS: VANCOMYCIN 500 MG in DEXTROSE 5% 100 ML IVPB SCH (03:41)
[2016-03-08] MEDS: PANTOPRAZOLE 40 MG INJ IV SCH (05:48)
[2016-03-08] MEDS: PIPER-TAZO 3.375 GM IV (PMX) 100 ML IVPB SCH (05:48)
[2016-03-08 07:01] LABS: CREATININE 1.89 mg/dl (0.61-1.24)
--- NOTE | 2016-03-08 08:30 | CONS ---
Date/Time of Note Date/Time of Note DATE: 03/08/16 TIME: 08:27 Assessment/Plan Assessment/Plan Additional Assessment/Plan Assessment and recommendations; 1. Patient admitted to ICU with cardiac arrest underwent prolonged CPR resulting in severe anoxic enthesopathy the clinical findings are consistent with brain . 2. Advanced HIV with severely depressed CD4 count. 3. Fungemia. 4. Severe thrombocytopenia indicative of severe bone marrow suppression. 5. Mild renal insufficiency. Prognosis is dismal and ethics committee will decide about possible terminal expiration. Consultation Date/Type/Reason Admit Date/Time Feb 29, 2016 at 12:20 Initial Consult Date 03/04/16 Type of Consultation: Cardiology 24 HR Interval Summary Free Text/Dictation Patient's condition remains extremely critical still requiring full ventilator support patient is unresponsive. Has remained hemodynamically stable not requiring any further pressor support. General examination; young man, orally intubated. Unresponsive. Exam/Review of Systems Vital Signs Vitals Vital Signs Date Time Temp Pulse Resp B/P Pulse Ox O2 Delivery O2 Flow Rate FiO2 03/08/16 07:15 72 20 119/72 100 03/08/16 05:25 60 03/08/16 04:00 96.9 Mechanical Ventilator 03/04/16 08:43 2.0 Intake and Output 03/07/16 03/07/16 03/08/16 15:00 23:00 07:00 Intake Total 1119.2 ml 1414.6 ml 1860.20 ml Output Total 625 ml 540 ml 720 ml Balance 494.2 ml 874.6 ml 1140.20 ml Exam HEENT examination; supple neck, or intubated. Extensive left periorbital ecchymosis is present and soft tissue swelling. Pupils are dilated nonreactive to light. Doll's eye movements are absent. No neck masses. Chest examination; diminished but clear breath sounds bilaterally. S1-S2 audible no murmurs regular rhythm. Abdomen examination; soft, bowel sounds are sluggish. No organomegaly. Next Extremity examination; no peripheral edema. Next RATE CLERK examination; patient remains unresponsive. Results Result Diagram: 03/07/16 0400 03/08/16 0540 Results 24 hrs Laboratory Tests Test 03/07/16 13:55 03/08/16 05:40 Vancomycin Level Trough 13.9 Blood Urea Nitrogen 66 H Creatinine 1.89 H Medications Medications Current Medications Ondansetron HCl (Zofran Inj) 4 mg Q6H PRN IV NAUSEA AND/OR VOMITING; Start at 13:00 Acetaminophen (Tylenol Tab) 650 mg Q6H PRN PO PAIN LEVEL 1-3 OR FEVER; Start at 13:00 Acetaminophen (Tylenol Supp) 650 mg Q6H PRN LA PAIN LEVEL 1-3 OR FEVER; Start 02/29/16 at 13:00 Acetaminophen/ Hydrocodone Bitart ([place] (5/325)) 1 tab Q6H PRN PO MODERATE PAIN LEVEL 4-6; Start 02/29/16 at 13:00 Acetaminophen/ Hydrocodone Bitart ([place] (5/325)) 2 tab Q6H PRN PO SEVERE PAIN LEVEL 7-10; Start 02/29/16 at 13:00 Morphine Sulfate (morphine) 2 mg Q4H PRN IV SEVERE PAIN LEVEL 7-10 Last administered on 03/01/16 06:13; Admin Dose 2 MG; Start 02/29/16 at 13:00 Docusate Sodium (Colace) 100 mg Q12H PRN PO CONSTIPATION; Start 02/29/16 at 13: 00 Magnesium Hydroxide (Milk Of Mag) 30 ml DAILY PRN PO CONSTIPATION; Start at 13:00 Bisacodyl (Dulcolax Supp) 10 mg DAILY PRN LA CONSTIPATION; Start 02/29/16 at 13 :00 Pantoprazole (Protonix Iv) 40 mg DAILY@06 IV Last administered on 03/08/16 05: 48; Admin Dose 40 MG; Start 03/01/16 at 06:00 Chlordiazepoxide (Librium) 25 mg TID PO Last administered on 03/05/16 20:58; Admin Dose 25 MG; Start 02/29/16 at 14:00 Hydralazine HCl (Apresoline) 10 mg Q4H PRN IV sbp>160 Last administered on 03/03 01:31; Admin Dose 10 MG; Start 02/29/16 at 14:00 Diphenhydramine HCl (Benadryl) 25 mg Q6H PRN IV ALLERGIC REACTION Last administered on 03/01/16 06:57; Admin Dose 25 MG; Start 02/29/16 at 17:00 Neomycin/ Polymyxin/ Bacitracin 1 applic 1 applic BID TOP Last administered on 03/07/16 21:54; Admin Dose 1 APPLIC; Start 03/02/16 at 21:00 Piperacillin Sod/ Tazobactam Sod 100 ml @ 200 mls/hr Q8 IVPB Last administered on 03/08/16 05:48; Admin Dose 200 MLS/HR; Start 03/04/16 at 14:00 Norepinephrine 16 mg/Dextrose 500 ml @ 0 mls/hr TITRATE IV Last administered on 03/08/16 03:24; Admin Dose 8.94 MLS/HR; Start 03/05/16 at 07:00 Phenylephrine HCl 40 mg/Dextrose 500 ml @ 0 mls/hr TITRATE IV ; Start 03/05/16 at 07:00 Dextrose 1,000 ml @ 100 mls/hr Q10H IV Last administered on 03/08/16 05:49; Admin Dose 100 MLS/HR; Start 03/04/16 at 17:00 Vasopressin 60 unit/Dextrose 60 ml @ 0 mls/hr Q12H IV Last administered on 03/07 00:32; Admin Dose 2.4 MLS/HR; Start 03/04/16 at 22:00 Dopamine HCl 800 mg/Dextrose 250 ml @ 2.43 mls/hr TITRATE IV ; Start 03/04/16 at 22:00 Vancomycin HCl 500 mg/Dextrose 100 ml @ 100 mls/hr Q12H IVPB Last administered on 03/08/16 03:41; Admin Dose 100 MLS/HR; Start 03/05/16 at 15:00 ; Status Future hold Caspofungin 35 mg/ Sodium Chloride 250 ml @ 250 mls/hr Q24H IV Last administered on 03/07/16 21:55; Admin Dose 250 MLS/HR; Start 03/06/16 at 22:00 Acyclovir 650 mg/ Dextrose 100 ml @ 100 mls/hr Q12H IVPB Last administered on 03/08/16 03:21; Admin Dose 100 MLS/HR; Start 03/07/16 at 02:00 Levofloxacin/ Dextrose (Levaquin 250 Mg/ D5W 50 ml (Pmx)) 50 ml @ 50 mls/hr Q24H IVPB ; Start 03/08/16 at 12:00 KEANU CHE Mar 08, 2016 08:30
[2016-03-08] MEDS: CHLORDIAZEPOXIDE 25 MG CAP PO SCH ×2 (09:00→11:56)
[2016-03-08] MEDS: NEOMYC/POLYMYX/BACIT 30 GM OINT TOP SCH (09:32)
[2016-03-08] MEDS: VASOPRESSIN 60 UNIT in DEXTROSE 5% 57 ML IV SCH (10:00)
--- NOTE | 2016-03-08 11:15 | CONS ---
Date/Time of Note Date/Time of Note DATE: 03/08/16 TIME: 11:12 Assessment/Plan Assessment/Plan Chief Complaint/Hosp Course SUBJECTIVE: No acute events, obtunded, nad MICROBIOLOGY: Blood culture growing yeast. ANTIMICROBIALS: Vancomycin, Zosyn, Cancidas, Acyclovir and Levaquin. INDWELLINGS: Right femoral triple lumen catheter and A-line placed on 2016. Also a [place], endotracheal tube and orogastric tube. PHYSICAL EXAMINATION: GENERAL: This is an ill-appearing, middle-aged man, who is obtunded, in no distress. HEENT: Head atraumatic, normocephalic. The patient has a left orbital bruise. Sclerae are anicteric. Buccal mucosa dry. NECK: Supple. Trachea midline. CHEST: Chest rise is symmetrical. Breath sounds diminished to the bases. HEART: S1, S2. ABDOMEN: Soft. Bowel tones hypoactive. EXTREMITIES: With trace edema. SKIN: Multiple tattoos, bruises and scabs. ASSESSMENT: 1. Severe sepsis with shock. 2. Fungemia. 3. Acute encephalopathy, present on admission===> confirmed brain by neurology 4. Pneumonia, possibly aspiration versus community acquired. 5. HIV positivity. 6. Hepatitis C virus. 7. Homelessness. 8. ETOH abuse. 9. Transaminitis, with liver ultrasound revealing cholelithiasis, without evidence of acute cholecystitis, and normal common bile duct. PLAN: Clinically unchanged, pending ethic's committee, continue present care [facility] staff Problems: Consultation Date/Type/Reason Admit Date/Time Feb 29, 2016 at 12:20 Type of Consultation: ID Exam/Review of Systems Vital Signs Vitals Vital Signs Date Time Temp Pulse Resp B/P Pulse Ox O2 Delivery O2 Flow Rate FiO2 03/08/16 10:15 70 20 99/63 100 03/08/16 10:00 Mechanical Ventilator 03/08/16 08:30 60 03/08/16 08:00 97.0 03/04/16 08:43 2.0 Intake and Output 03/07/16 03/07/16 03/08/16 15:00 23:00 07:00 Intake Total 1119.2 ml 1414.6 ml 1860.20 ml Output Total 625 ml 540 ml 720 ml Balance 494.2 ml 874.6 ml 1140.20 ml Results Result Diagram: 03/07/16 0400 03/08/16 0540 Results 24 hrs Laboratory Tests Test 03/07/16 13:55 03/08/16 05:40 Vancomycin Level Trough 13.9 Blood Urea Nitrogen 66 H Creatinine 1.89 H Medications Medications Current Medications Ondansetron HCl (Zofran Inj) 4 mg Q6H PRN IV NAUSEA AND/OR VOMITING; Start at 13:00 Acetaminophen (Tylenol Tab) 650 mg Q6H PRN PO PAIN LEVEL 1-3 OR FEVER; Start at 13:00 Acetaminophen (Tylenol Supp) 650 mg Q6H PRN [place] PAIN LEVEL 1-3 OR FEVER; Start 02/29/16 at 13:00 Acetaminophen/ Hydrocodone Bitart ([place] (5/325)) 1 tab Q6H PRN PO MODERATE PAIN LEVEL 4-6; Start 02/29/16 at 13:00 Acetaminophen/ Hydrocodone Bitart ([place] (5/325)) 2 tab Q6H PRN PO SEVERE PAIN LEVEL 7-10; Start 02/29/16 at 13:00 Morphine Sulfate (morphine) 2 mg Q4H PRN IV SEVERE PAIN LEVEL 7-10 Last administered on 03/01/16 06:13; Admin Dose 2 MG; Start 02/29/16 at 13:00 Docusate Sodium (Colace) 100 mg Q12H PRN PO CONSTIPATION; Start 02/29/16 at 13: 00 Magnesium Hydroxide (Milk Of Mag) 30 ml DAILY PRN PO CONSTIPATION; Start at 13:00 Bisacodyl (Dulcolax Supp) 10 mg DAILY PRN [place] CONSTIPATION; Start 02/29/16 at 13 :00 Pantoprazole (Protonix Iv) 40 mg DAILY@06 IV Last administered on 03/08/16 05: 48; Admin Dose 40 MG; Start 03/01/16 at 06:00 Chlordiazepoxide (Librium) 25 mg TID PO Last administered on 03/05/16 20:58; Admin Dose 25 MG; Start 02/29/16 at 14:00 Hydralazine HCl (Apresoline) 10 mg Q4H PRN IV sbp>160 Last administered on 03/03 01:31; Admin Dose 10 MG; Start 02/29/16 at 14:00 Diphenhydramine HCl (Benadryl) 25 mg Q6H PRN IV ALLERGIC REACTION Last administered on 03/01/16 06:57; Admin Dose 25 MG; Start 02/29/16 at 17:00 Neomycin/ Polymyxin/ Bacitracin 1 applic 1 applic BID TOP Last administered on 03/08/16 09:32; Admin Dose 1 APPLIC; Start 03/02/16 at 21:00 Piperacillin Sod/ Tazobactam Sod 100 ml @ 200 mls/hr Q8 IVPB Last administered on 03/08/16 05:48; Admin Dose 200 MLS/HR; Start 03/04/16 at 14:00 Norepinephrine 16 mg/Dextrose 500 ml @ 0 mls/hr TITRATE IV Last administered on 03/08/16 03:24; Admin Dose 8.94 MLS/HR; Start 03/05/16 at 07:00 Phenylephrine HCl 40 mg/Dextrose 500 ml @ 0 mls/hr TITRATE IV ; Start 03/05/16 at 07:00 Dextrose 1,000 ml @ 100 mls/hr Q10H IV Last administered on 03/08/16 05:49; Admin Dose 100 MLS/HR; Start 03/04/16 at 17:00 Vasopressin 60 unit/Dextrose 60 ml @ 0 mls/hr Q12H IV Last administered on 03/07 00:32; Admin Dose 2.4 MLS/HR; Start 03/04/16 at 22:00 Dopamine HCl 800 mg/Dextrose 250 ml @ 2.43 mls/hr TITRATE IV ; Start 03/04/16 at 22:00 Vancomycin HCl 500 mg/Dextrose 100 ml @ 100 mls/hr Q12H IVPB Last administered on 03/08/16 03:41; Admin Dose 100 MLS/HR; Start 03/05/16 at 15:00 ; Status Future hold Caspofungin 35 mg/ Sodium Chloride 250 ml @ 250 mls/hr Q24H IV Last administered on 03/07/16 21:55; Admin Dose 250 MLS/HR; Start 03/06/16 at 22:00 Acyclovir 650 mg/ Dextrose 100 ml @ 100 mls/hr Q12H IVPB Last administered on 03/08/16 03:21; Admin Dose 100 MLS/HR; Start 03/07/16 at 02:00 Levofloxacin/ Dextrose (Levaquin 250 Mg/ D5W 50 ml (Pmx)) 50 ml @ 50 mls/hr Q24H IVPB ; Start 03/08/16 at 12:00 CLAIR MUNGUIA NP Mar 08, 2016 11:15
[2016-03-08] MEDS ORDERED: LEVOFLOXACIN 250MG/D5W (PMX) 50 ML IVPB SCH (12:00)
--- NOTE | 2016-03-08 12:54 | CONS ---
DATE OF ADMISSION: 02/29/2016 DATE OF CONSULTATION: 03/08/2016 PALLIATIVE CARE CONSULTATION HISTORY OF PRESENT ILLNESS: I have reviewed the patient's medical records in detail. The patient i s intubated and cannot assist, and there are no family members. This gentleman was brought to the e mergency room on 02/29/2016. At that time was admitted for encephalopathy, presumed to be secondary to alcohol withdrawal, fluid and electrolyte abnormalities who was admitted, treated aggressively f or correction of his fluids, electrolytes, treated for alcohol withdrawal. Close observation was do ne while telephonic case manager and social workers attempted to find family members. During the hospitalizat ion he was diagnosed with hepatitis C and HIV positive serology. Laboratory tests were also consist ent with transaminitis. The patient had a cardiac arrest on March 04 with ROSC, transferred to the intensive care unit. Multiple consultants were called including pulmonary, cardiology, infectio us disease, neurology. Aggressive treatments have continued up until the present, the patient requi red pressors. At this time, the patient has been seen by neurology. He has had an EEG consistent w ith brain , and at least 2 apnea tests have been done. Those are not immediately available to me to review at this time. Repeat EEG done March 05, interpretation: This is an abnormal EEG b ecause of absence of cerebral activity consistent with brain . Please correlate with findings with the patient's clinical picture, read out by Gianna Vazquez MD. Apparently there has been an ex tensive effort to try and find any family members which has been unremarkable thus far. I have seen and examined the patient, bioethics meeting is scheduled today at 1200 hours. Follow up recommenda tions will be done after that. Dictated By: ACACIA OLEARY MD LP/NTS Conf#: [id number] DID#: [id number]
--- NOTE | 2016-03-08 13:34 | PN ---
DATE: 03/08/2016 BIOETHICS MEETING AND RECOMMENDATIONS Bioethics conference was called by manager strategy & account Dr. Cisco Dukes with survey crew chief. In attendanc e Dr. Jeffery Santos, on 03/08/2016. The case was reviewed from the time the patient was hospitaliz ed to his in-house catastrophic event cardiac arrest, transferred to the intensive care unit. Multi ple consultants were involved in patient's care and the patient's deteriorating neurological conditi on, culminating in patient being clinical signs consistent with brain as well as EEG consisten t with brain . He has had 3 physicians who have signed on the patient's chart confirming brain additionally, other than neurology content management consultant. Patient's history prior to this hospitalizati on was reviewed by Skylar Sims in detail and Ashley has done a detailed research trying to fin d any family members by contacting the police department and the to no avail. She has docu mented this on 3 consecutive days as well as this day of the bioethics meeting. In lieu of this the recommendation from the bioethics committee is to allow patient to have a compassionate end of life and terminal compassionate extubation. All members were in agreement. Dictated By: ACACIA OLEARY MD, LP/CHRISTIAN Conf#: [id number] DID#: [id number]
--- NOTE | 2016-03-08 16:37 | DS ---
DATE OF ADMISSION: 02/29/2016 DATE OF DISCHARGE: 03/08/2016 DATE OF : 03/08/2016. FINAL DIAGNOSIS: Brain secondary to cardiopulmonary failure from cardiac arrest secondary cau ses of hepatitis C, human immunodeficiency virus with acquired immunodeficiency syndrome with CD4 co unt below 20. HOSPITAL COURSE: Patient is a 55-year-old male with a history of HIV and noncompliance, homeless, h as a reported history of alcohol abuse. The patient presents with encephalopathy, possible trauma v ersus fall with a black eye. The patient was nonverbal, not providing any information patient. The patient is homeless. The patient ultimately went into cardiac arrest. Ended up in the ICU. The pa eunice had an EEG that showed absence of a cerebral activity consistent with brain . The patien t was reported to have brain per neurology. It shows findings consistent with anoxic encephal opathy. On examination, the patient did have signs of brain and apnea test was positive for b rain . Bioethics meeting was placed and the patient was felt to be appropriate for withdrawal of ventilator care. The patient went into asystole and was pronounced at 1435 on 03/08/2016. Dictated By: RUBA NICHOLSON MD BS/NTS Conf#: [id number] DID#: [id number]
== END 2016-03-08 14:35 | disposition expired | DRG 974 ==
LOC: E/R 01:01 → MS4 12:20 → ICU 03-04 14:53
PROVIDERS: ADMIT Hospitalist; ATTEND Hospitalist
PROC: 06HM33Z Insertion of Infusion Device into Right Femoral Vein, Percutaneous Approach (ICD-10-PCS; principal; 2016-03-04)
PROC: 5A1945Z Respiratory Ventilation, 24-96 Consecutive Hours (ICD-10-PCS; 2016-03-04)
PROC: 0BH17EZ Insertion of Endotracheal Airway into Trachea, Via Natural or Artificial Opening (ICD-10-PCS; 2016-03-04)
PROC: 04HK33Z Insertion of Infusion Device into Right Femoral Artery, Percutaneous Approach (ICD-10-PCS; 2016-03-04)
DX: B20 Human immunodeficiency virus [HIV] disease (principal); G92 Toxic encephalopathy; A41.89 Other specified sepsis; R65.21 Severe sepsis with septic shock; J96.00 Acute respiratory failure, unspecified whether with hypoxia or hypercapnia; J69.0 Pneumonitis due to inhalation of food and vomit; B49 Unspecified mycosis; I47.2 Ventricular tachycardia; F10.239 Alcohol dependence with withdrawal, unspecified; E87.0 Hyperosmolality and hypernatremia; Z72.0 Tobacco use; Z59.0 Homelessness; S00.83XA Contusion of other part of head, initial encounter; Y90.0 Blood alcohol level of less than 20 mg/100 ml; S00.12XA Contusion of left eyelid and periocular area, initial encounter; I10 Essential (primary) hypertension; I16.0 Hypertensive urgency; X58.XXXA Exposure to other specified factors, initial encounter; B19.20 Unspecified viral hepatitis C without hepatic coma; E87.6 Hypokalemia; T20.00XA Burn of unspecified degree of head, face, and neck, unspecified site, initial encounter; X08.8XXA Exposure to other specified smoke, fire and flames, initial encounter; G94 Other disorders of brain in diseases classified elsewhere; E87.8 Other disorders of electrolyte and fluid balance, not elsewhere classified; I95.9 Hypotension, unspecified; I46.9 Cardiac arrest, cause unspecified; G32.89 Other specified degenerative disorders of nervous system in diseases classified elsewhere
CPT/HCPCS: 31500; 36600; 70450; 70486; 71010; 76705; 80048; 80053; 80061; 80202; 80306; 80307; 82140; 82565; 82803; 82962; 83036; 83690; 83735; 84100; 84134; 84436; 84443; 84479; 84484; 84520; 85025; 85610; 86360; 86701; 86703; 86704; 86709; 86803; 87040; 87081; 87106; 87340; 87522; 87536; 92950; 93005; 94002; 94003; 94770; 95819; 96372; 96374; 96375; 96376; C9113; J0133; J0171; J0360; J1200; J1265; J1630; J1956; J2060; J2270; J2370; J2543; J3370; J3411; J3475; J3480; J7030; J7040; J7050; J7070